=== PATIENT | male | born 1975 | race Caucasian/White ===

== ENCOUNTER 2020-12-18 11:21 | Emergency (ER) | payer SELFPAY ==
--- NOTE | 2020-12-18 11:25 | XRR_ITS ---
PROCEDURE INFORMATION: Exam: XR Left Foot Exam date and time: 12/18/2020 11:25 AM Age: 45 years old Clinical indication: Pain; Foot; Left TECHNIQUE: Imaging protocol: XR Left foot. Views: 1 or 2 views. COMPARISON: No relevant prior studies available. FINDINGS: Bones/joints: Normal. Soft tissues: Normal. XR/XR foot LT 2V [id number] IMPRESSION: No acute findings.
--- NOTE | 2020-12-18 12:11 | ED_ITS ---
HPI - Extremity Injury (Lower) General: Chief Complaint: Extremity Injury, Lower Stated Complaint: L foot pain Time Seen by Provider: 12/18/20 12:39 Source: patient Mode of arrival: wheelchair Review of Systems General: Reports: 10 or more systems reviewed and unremarkable except in HPI and below Musc: Reports: extremity pain and extremity swelling Physical Exam Const: COMMON NORMALS: no acute distress, patient oriented x3, no limitations and alert GENERAL APPEARANCE: cooperative and comfortable ORIENTATION/CONSCIOUSNESS: Yes awake, Yes oriented to person, Yes oriented to place and Yes oriented to time HENMT: COMMON NORMALS: normocephalic, atraumatic, external ears normal, EAC's normal, TM's normal bilaterally and Normal external nose present HEAD & SCALP: normal to inspection, normocephalic and atraumatic FACE & SINUS: normal facial exam, sinuses nontender and face symmetric NOSE: Normal external nose present, Normal nares present and No nasal discharge present EXTERNAL EAR: Yes external ears normal EXTERNAL AUDITORY CANAL: EAC's normal TYMPANIC MEMBRANE: TM's normal bilaterally MOUTH: Normal oral and palatal mucosa present, lip normal and tongue normal THROAT: posterior oropharynx normal, tonsils normal and uvula midline Eye: COMMON NORMALS: Equal, round and reactive pupils present, EOMs intact bilaterally and conjunctivae normal GENERAL EYE: appearance normal, both eyes and all related structures and normal light reflex EYELID: eyelids normal CONJUNCTIVA: Yes conjunctivae normal PUPIL: Yes Equal, round and reactive pupils present EOM: Yes EOM abnormal DIRECT OPHTHALMOSCOPY: Yes normal light reflex Neck/C-Spine: COMMON NORMALS: full ROM, no lymphadenopathy, supple, no meningeal signs, no JVD and Thyroid normal GENERAL: Yes normal visual inspection THYROID: Thyroid normal CERVICAL SPINE: Yes cervical ROM normal and Yes normal cervical lordosis Lymph: LYMPHATIC: no lymphadenopathy noted Chest: COMMONS NORMALS: normal inspection of the chest and normal palpation of entire chest wall Resp: COMMON NORMALS: normal respiratory effort, No retractions and clear to auscultation bilaterally AUSCULTATION: clear to auscultation bilaterally Cardio: COMMON NORMALS: no JVD, regular rate, regular rhythm, S1 normal heart sound present, S2 normal heart sound present, No gallops present (Cardio), No clicks present (Cardio), No murmurs present (Cardio), No rub (Cardio) and Peripheral pulses 2+ throughout RATE: regular rate RHYTHM: regular rhythm HEART SOUNDS: S1 normal heart sound present and S2 normal heart sound present PERIPHERAL PULSES: Peripheral pulses 2+ throughout GI: COMMON NORMALS: Normal to inspection, nondistended, normoactive bowel sounds present, Soft to palpation, non-tender and no masses PALPATION: Yes Soft to palpation : COMMON NORMALS: Yes no CVA tenderness BLADDER/KIDNEY EXAM: Yes no CVA tenderness Back/Pelvis: COMMON NORMALS: no CVA tenderness, thoracic and lumbar spine normal to inspection, no thoracic nor lumbar tenderness and thoraco-lumbar ROM normal Extremity: COMMON NORMALS: normal to inspection, full ROM, capillary refill normal, no joint enlargement, no clubbing, cyanosis or edema, no calf tenderness and no pedal edema GENERAL: Yes normal exam except as noted LEFT LOWER EXTREMITY: Yes ankle joint Left ankle: Yes inspection Neuro: COMMON NORMALS: patient oriented x3, moves all extremities, no focal motor deficits, no sensory deficits noted and gait normal SENSORIUM/ORIENTATION: Yes alert, Yes oriented to person, Yes oriented to place and Yes oriented to time MENINGEAL SIGNS: Yes no meningeal signs Psych: COMMON NORMALS: mental status grossly normal, Normal thought process present, cooperative, normal affect, speech normal and activity/motor behavior normal SPEECH: Yes normal speech THOUGHT PROCESS: Normal thought process present Skin: COMMON NORMALS: no rashes or lesions noted, no wounds and turgor normal GENERAL SKIN EXAM: no rashes or lesions noted and turgor normal Course ED course: Pt had a crushing injury while working, he had log roll over his left ankle. Xray negative fx. We are going to splint and have his utilize crutches for the next several days. RICE therapy and will add keflex due to crushing nature of wound even though no fx is present. Vital Signs: Vital signs: Vital Signs Temperature 97.6 F 12/18/20 12:39 Pulse Rate 77 12/18/20 13:53 Respiratory Rate 16 12/18/20 13:53 Blood Pressure 125/77 12/18/20 12:39 Pulse Oximetry 95 12/18/20 13:53 MDM - Extremity Injury (Lower) Imaging Data^: Other Xray: Radiologist's impression: [address] [address] XRay Report Signed Patient: Fred Orosco Unit #: [id number] : 1975 Age/Sex: 45 / M ADM Date: 12/18/20 Loc: ER Room/Bed: Attending Dr: Ordering Provider/Ordering MD: Aurora Payne NP Date of Service: 12/18/20 Procedure(s): XR foot LT 2V 56946 Accession Number(s): [id number] Report Number: [id number] PROCEDURE INFORMATION: Exam: XR Left Foot Exam date and time: 12/18/2020 11:25 AM Age: 45 years old Clinical indication: Pain; Foot; Left TECHNIQUE: Imaging protocol: XR Left foot. Views: 1 or 2 views. COMPARISON: No relevant prior studies available. FINDINGS: Bones/joints: Normal. Soft tissues: Normal. XR/XR foot LT 2V [id number] IMPRESSION: No acute findings. Dictated By: Fred Schafer Signed By: Fred Schafer Signed Date/Time: 12/18/20 1158 DD/ 1156 Discharge Plan Discharge Clinical Impression: Ankle sprain and strain Condition: Stable Prescriptions: New Keflex 750 mg capsule 750 mg PO BID 7 Days Qty: 14 RF: 0 Ultram 50 mg tablet 50 mg PO BID Qty: 10 RF: 0 Discharge Orders: Discharge ED (Routine); Ordered 12/18/20 Ordered By: Aurora Payne Discharge Diet: Usual diet Discharge Activity: Increase activity as tolerated Coding Level of Care Code ED Environmental Test Technician for Cayden Olivares
[2020-12-18 12:39] VITALS: BP 125/77; PULSE 87; RESP 16; TEMP 36.4; O2SAT 94; BMI 30.8
--- NOTE | 2020-12-18 12:52 | XRR_ITS ---
PROCEDURE INFORMATION: Exam: XR Left Ankle Exam date and time: 12/18/2020 12:52 PM Age: 45 years old Clinical indication: Injury or trauma; Other: Tree rolled onto foot; Crushing; Ankle; Left; Patient HX: Tree rolled on lt foot. PT states he has constant pain and a burning sensation all over his lt foot. TECHNIQUE: Imaging protocol: XR Left ankle. Views: 3 or more views. COMPARISON: CR XR foot LT 2V [id number] 12/18/2020 11:26 AM FINDINGS: Bones/joints: Normal. Soft tissues: Normal. XR/XR ankle LT min 3V* [id number] IMPRESSION: No significant abnormality.
[2020-12-18] MEDS: HYDROcodone-acetaminophen 5-325 mg Tablet 1 TAB PO (13:13)
[2020-12-18 13:53] VITALS: PULSE 77; RESP 16; O2SAT 95
[2020-12-18 14:31] VITALS: BP 131/72; PULSE 74; RESP 18; O2SAT 93
[2020-12-18 14:46] VITALS: BP 131/72; PULSE 74; RESP 18; TEMP 36.4; O2SAT 93
== END 2020-12-18 14:48 | disposition home or self-care (01) ==
PROVIDERS: Emergency Provider Nurse Practitioner Family
DX: S93.402A Sprain of unspecified ligament of left ankle, initial encounter (principal); W20.8XXA Other cause of strike by thrown, projected or falling object, initial encounter
CPT/HCPCS: 29515; 73610; 73620; 99283; E0114

== ENCOUNTER 2023-04-17 20:08 | Emergency (ER) | payer MEDICAID, SELFPAY ==
[2023-04-17 20:27] VITALS: BP 110/80; PULSE 107; RESP 18; TEMP 36.9; O2SAT 90
--- NOTE | 2023-04-17 20:46 | CTR_ITS ---
PROCEDURE INFORMATION: Exam: CT Abdomen And Pelvis With Contrast Exam date and time: 04/17/2023 9:03 PM Age: 48 years old Clinical indication: Abdominal pain; Localized; Left lower quadrant (llq); Patient HX: Llq pain with tarry stool. History of RT inguinal hernia. ; Additional info: Llq abdominal pain TECHNIQUE: Imaging protocol: Computed tomography of the abdomen and pelvis with contrast. Radiation optimization: All CT scans at this facility use at least one of these dose optimization techniques: automated exposure control; mA and/or kV adjustment per patient size (includes targeted exams where dose is matched to clinical indication); or iterative reconstruction. Contrast material: OMNI 350; Contrast volume: 100 ml; Contrast route: INTRAVENOUS (IV); REPORTING DATA: Count of CT and Cardiac NM exams in prior 12 months: This patient has received 0 known CTs and 0 known cardiac nuclear medicine studies in the 12 months prior to the current study. COMPARISON: No relevant prior studies available. RADIATION DOSE METRICS: Total DLP (mGy-cm): 924.18 FINDINGS: Lungs: Emphysematous changes. Left lower lobe 7.4 mm pulmonary nodule, dedicated chest CT advised for further evaluation. Liver: Hepatic steatosis. Gallbladder and bile ducts: Normal. No calcified stones. No ductal dilation. Pancreas: Normal. No ductal dilation. Spleen: Spleen enlarged to 17 cm. Adrenal glands: Normal. No mass. Kidneys and ureters: Normal. No hydronephrosis. Stomach and bowel: Prominent fluid in the small bowel may reflect an enteritis. Appendix: No evidence of appendicitis. Intraperitoneal space: Unremarkable. No free air. No significant fluid collection. Vasculature: Unremarkable. No abdominal aortic aneurysm. Lymph nodes: Unremarkable. No enlarged lymph nodes. Urinary bladder: Unremarkable as visualized. Reproductive: Prostate gland enlarged indenting the base of the urinary bladder. Bones/joints: Unremarkable. No acute fracture. Soft tissues: Small to moderate right inguinal hernia containing bowel without dilation. Small left inguinal hernia containing omentum. CT/CT abdomen pelvis w con* [id number] IMPRESSION: 1. Prominent fluid in the small bowel may reflect an enteritis. 2. Small to moderate right inguinal hernia containing bowel without dilation. 3. Small left inguinal hernia containing omentum. 4. Prostate gland enlarged indenting the base of the urinary bladder. 5. Emphysematous changes. 6. Left lower lobe 7.4 mm pulmonary nodule, dedicated chest CT advised for further evaluation. 7. Hepatic steatosis. 8. Spleen enlarged to 17 cm.
--- NOTE | 2023-04-17 20:50 | W.ED.ABDPA2 ---
HPI - Abdominal Pain General: Chief Complaint: Abdominal Pain Stated Complaint: flu like symptoms, abd pain Time Seen by Provider: 04/17/23 20:11 History of Present Illness: Patient is a 48-year-old male with a past medical history significant for tobacco dependence and a known right inguinal hernia who presents to the emergency department with left lower quadrant abdominal pain. Patient reports that for approximately 2 weeks he has had a mild productive cough. Sputum production is clear. Patient states that when he was coughing earlier today he felt a sharp pain in his left lower quadrant. Patient states that since the incident he has had increased left lower quadrant abdominal pain. He currently rates his pain as a 7 out of 10 in severity that he describes as a burning-like sensation. Pain is constant and he denies any aggravating or alleviating factors. Admits to subjective fevers but denies actually taking his temperature. Temperature in triage is 98.4 ?F. Admits to a sore throat and clear rhinorrhea. Patient states that he also has diarrhea and will intermittently have bright red blood per rectum. Is unsure if he has a history of hemorrhoids. He denies chest pain, new onset shortness of breath, palpitations, lightheadedness, dizziness, nausea, vomiting, hematemesis, hemoptysis, dysuria, hematuria, constipation, melena, or any other associated symptoms. Patient admits to smoking approximately half a pack of cigarettes a day. No other complaints at this time. Associated Symptoms: Reports diarrhea, fever(s) and hematochezia; Denies chills, coffee ground emesis, constipation, dysuria, hematuria, hematemesis, nausea and vomiting Review of Systems General: Reports: 10 or more systems reviewed and unremarkable except in HPI and below Const: Reports: fever(s); Denies: chills Eyes: Denies: change in vision or blurry vision ENMT: Reports: throat pain, nasal discharge and nasal congestion; Denies: ear or mastoid pain or ear discharge Card: Denies: chest pain or palpitations Resp: Reports: productive cough; Denies: non-productive cough or wheezing GI: Reports: abdominal pain, diarrhea and hematochezia; Denies: nausea, vomiting, hematemesis, coffee ground emesis or constipation : Denies: flank pain, difficulty urinating, dysuria or hematuria Musc: Denies: neck pain, back pain or extremity pain Skin/Breast: Denies: rash Neuro: Denies: headache(s), numbness in extremities, weakness in extremities, dizziness or vertigo PFSH ED PFSH: Social History Smoking and tobacco/nicotine status: current every day tobacco/nicotine user (2 - 21/2 packs per day) Physical Exam Const: COMMON NORMALS: no acute distress and patient oriented x3 HENMT: COMMON NORMALS: normocephalic, atraumatic, TM's normal bilaterally and moist oral mucous membranes HEAD & SCALP: normocephalic and atraumatic TYMPANIC MEMBRANE: TM's normal bilaterally OTHER: Posterior oropharynx erythematous without swelling, lesions, or exudates. No evidence of retropharyngeal abscess or peritonsillar abscess. Bilateral tympanic membranes pearly garcia without effusion or hemotympanums. Eye: COMMON NORMALS: Equal, round and reactive pupils present, EOMs intact bilaterally and conjunctivae normal CONJUNCTIVA: Yes conjunctivae normal PUPIL: Yes Equal, round and reactive pupils present Neck/C-Spine: COMMON NORMALS: full ROM, no lymphadenopathy and supple Chest: COMMONS NORMALS: normal inspection of the chest Resp: COMMON NORMALS: normal respiratory effort, No retractions, No use of accessory muscles and clear to auscultation bilaterally AUSCULTATION: clear to auscultation bilaterally Cardio: COMMON NORMALS: regular rhythm, No gallops present (Cardio), No clicks present (Cardio), No murmurs present (Cardio) and No rub (Cardio) RATE: tachycardic RHYTHM: regular rhythm GI: OTHER: Mild distention noted on examination. Left lower quadrant abdominal tenderness appreciated to palpation. No McBurney's point tenderness, Barnes sign, or peritoneal signs noted. No evidence of rebound tenderness. Normoactive bowel sounds in all 4 quadrants. Reducible right-sided inguinal hernia is noted. The area is nontender to palpation. No evidence of incarceration or strangulation. No appreciable hernias noted to the left inguinal area. : COMMON NORMALS: Yes no CVA tenderness BLADDER/KIDNEY EXAM: Yes no CVA tenderness Back/Pelvis: COMMON NORMALS: no CVA tenderness Extremity: OTHER: Moving bilateral upper and lower extremities without weakness or deficit. Neuro: COMMON NORMALS: patient oriented x3 OTHER: Sensation intact in the bilateral upper and lower extremities. Patient is alert and oriented x 4. No focal neurological deficits noted on examination. Course Vital Signs: Vital signs: Vital Signs Temperature 98.4 F 04/17/23 20:27 Pulse Rate 107 H 04/17/23 20:27 Respiratory Rate 18 04/17/23 20:27 Blood Pressure 110/80 04/17/23 20:27 Pulse Oximetry 90 04/17/23 20:27 Oxygen Delivery Me thod Room Air 04/17/23 20:27 MDM - Abdominal Pain Medical Decision Making Patient is a 48-year-old male with a past medical history significant for tobacco dependence and a known right inguinal hernia who presents to the emergency department with left lower quadrant abdominal pain. On physical examination patient is nontoxic and in no acute distress. Vital signs stable at discharge. Oxygen saturations remained above 90% on room air. Patient is afebrile. CBC showed mild leukocytosis at 15.83. CMP, lipase, lactic acid, influenza, COVID-19, and rapid strep all grossly unremarkable. CT of the abdomen pelvis with contrast showed Prominent fluid in the small bowel may reflect an enteritis. Small to moderate right inguinal hernia containing bowel without dilation. Small left inguinal hernia containing omentum. Prostate gland enlarged indenting the base of the urinary bladder. Emphysematous changes. Left lower lobe 7.4 mm pulmonary nodule, dedicated chest CT advised for her evaluation. Hepatic steatosis. Spleen enlarged to 17 cm. Chest x-ray showed right hilar to lower lobe atelectasis versus infiltrate. Emphysematous changes noted. No evidence of incarcerated or strangulated bowel. I will refer to general surgery for the patient's inguinal hernias. Given the patient's leukocytosis and possible infiltrate I will treat with doxycycline and have the patient follow-up with his primary care provider. A referral was sent to general surgery for your inguinal hernia. Number provided discharge paperwork, call tomorrow to schedule an appointment for further management/evaluation. A possible pneumonia was noted on your chest x-ray. A prescription of doxycycline was sent to your pharmacy be picked up. Take medication as prescribed. First dose given in the emergency department. A pulmonary nodule was noted on your CT. It is important that you follow-up with your primary care provider for further imaging. Call your primary care provider tomorrow with an update your symptoms and to schedule this appointment. Cold-mist humidifier night. Warm salt water gargles for sore throat. Tylenol and ibuprofen as needed for pain. Return to the emergency department in the next 12 to 24 hours for any rapid or worsening symptoms to include but not limited to worsening abdominal pain, nausea, vomiting, unable to have a bowel movement, chest pain, shortness of breath, palpitations, unable to reduce the hernia, or as needed. Patient stated understanding of all discharge instructions and was agreeable to the plan of care. I discussed patient's history, exam, and all findings with Dr. Barry in the emerge department who agreed my assessment and plan. He did not feel the patient required admission or further evaluation at this time. Differential diagnosis include but is not limited to strangulated hernia, incarcerated hernia, bowel obstruction, pancreatitis, diverticulitis, gastroenteritis, pneumonia Lab Data 04/17/23 20:45 04/17/23 20:45 Labs/Radiology: Radiology Impressions Abdomen/Pelvis CT 04/17/23 20:46 IMPRESSION: 1. Prominent fluid in the small bowel may reflect an enteritis. 2. Small to moderate right inguinal hernia containing bowel without dilation. 3. Small left inguinal hernia containing omentum. 4. Prostate gland enlarged indenting the base of the urinary bladder. 5. Emphysematous changes. 6. Left lower lobe 7.4 mm pulmonary nodule, dedicated chest CT advised for further evaluation. 7. Hepatic steatosis. 8. Spleen enlarged to 17 cm. Chest X-Ray 04/17/23 21:57 IMPRESSION: 1. Right hilar to lower lobe atelectasis versus infiltrate. 2. Emphysematous changes. Laboratory Results WBC 15.83 10^3/uL (3.29-11.43) H 04/17/23 20:45 RBC 5.71 10^6/uL (3.85-5.65) H 04/17/23 20:45 Hgb 17.10 g/dL (11.27-16.99) H 04/17/23 20:45 Hct 49.2 % (37-53) 04/17/23 20:45 MCV 86.2 fl (82-101) 04/17/23 20:45 MCH 29.9 pg (27-33) 04/17/23 20:45 MCHC 34.8 g/dL (30-55) 04/17/23 20:45 RDW 12.4 % (12.1-15.1) 04/17/23 20:45 Plt Count 341 10^3/cmm (157-399) 04/17/23 20:45 MPV 8.8 fL (7.4-10.4) 04/17/23 20:45 Neut % (Auto) 69.2 % 04/17/23 20:45 Lymph % (Auto) 19.5 % 04/17/23 20:45 [place] % (Auto) 7.8 % 04/17/23 20:45 Eos % (Auto) 2.3 % 04/17/23 20:45 Baso % (Auto) 0.5 % 04/17/23 20:45 Neut # (Auto) 10.96 10^3/uL (1.8-7.7) H 04/17/23 20:45 Lymph # (Auto) 3.1 10^3/uL (0.8-4.8) 04/17/23 20:45 [place] # (Auto) 1.2 10^3/uL (0.2-0.9) H 04/17/23 20:45 Eos # (Auto) 0.4 10^3/uL (0.0-0.8) 04/17/23 20:45 Baso # (Auto) 0.1 10^3/uL (0.0-0.1) 04/17/23 20:45 Nucleated RBC % (auto) 0 % 04/17/23 20:45 Nucleated RBCs # 0.0 /100WBC 04/17/23 20:45 Sodium 137 mmol/L (136-145) 04/17/23 20:45 Potassium 4.2 mmol/L (3.5-5.1) 04/17/23 20:45 Chloride 101 mmol/L (98-107) 04/17/23 20:45 Carbon Dioxide 25 mmol/L (22-29) 04/17/23 20:45 Anion Gap 15.2 (5-19) 04/17/23 20:45 BUN 12 mg/dL (6-20) 04/17/23 20:45 Creatinine 0.8 mg/dL (0.7-1.2) 04/17/23 20:45 GFR Calculation 103.2 mL/min (90-130) 04/17/23 20:45 Glucose 115 mg/dL (65-115) 04/17/23 20:45 Calculated Osmolality 285 mOsm/kg (285-295) 04/17/23 20:45 Lactic Acid 1.6 mmol/L (0.5-2.2) 04/17/23 20:45 Calcium 9.3 mg/dL (8.5-10.5) 04/17/23 20:45 Total Bilirubin 0.3 mg/dL (0.15-1.2) 04/17/23 20:45 AST 16 U/L (0-40) 04/17/23 20:45 ALT 18 U/L (0-41) 04/17/23 20:45 Alkaline Phosphatase 118 U/L (40-130) 04/17/23 20:45 Total Protein 7.5 g/dL (6.6-8.7) 04/17/23 20:45 Albumin 4.4 g/dL (3.5-5.2) 04/17/23 20:45 Globulin 3.1 g/dL (1.3-4.6) 04/17/23 20:45 Lipase 34 U/L (13-60) 04/17/23 20:45 Influenza Type A Ag negative (Negative) 04/17/23 20:57 Influenza Type B Ag negative (Negative) 04/17/23 20:57 SARS-CoV-2 Ag (Rapid) negative (Negative) 04/17/23 20:57 Group A Strep Rapid Negative (Negative) 04/17/23 20:57 All radiology interpretation(s) finalized by discharge Discharge Plan Discharge Patient Disposition: Home Clinical Impression: Inguinal hernia, Incidental pulmonary nodule, Cough Condition: Stable Prescriptions: New doxycycline hyclate 100 mg capsule 100 mg PO BID 7 Days Qty: 14 0RF No Action guaifenesin [Mucinex] 600 mg tablet extended release 12hr 600 mg PO Q12H PRN dextromethorphan HBr 15 mg/5 mL syrup 15 mg PO Q8H azithromycin [Zithromax Z-Claudio] 250 mg tablet See Rx Instructions PO .COMPLEX Qty: 6 0RF Rx Instructions: For 250 mg dose pack: take 500 mg today (day 1), then 250 mg for 4 days (days 2-5) PO Discharge Orders: Discharge ED (Routine); Ordered 04/17/23 Ordered By: Segundo Tam Referrals: Shayne Martinez DO [Physician] - Patient Instructions: Inguinal Hernia (ED), Pulmonary Nodules (ED), Pneumonia (ED) Activity Restrictions/Additional Instructions: See handouts over generalize instructions. A referral was sent to general surgery for your inguinal hernia. Number provided discharge paperwork, call tomorrow to schedule an appointment for further management/evaluation. A possible pneumonia was noted on your chest x-ray. A prescription of doxycycline was sent to your pharmacy be picked up. Take medication as prescribed. First dose given in the emergency department. A pulmonary nodule was noted on your CT. It is important that you follow-up with your primary care provider for further imaging. Call your primary care provider tomorrow with an update your symptoms and to schedule this appointment. Cold-mist humidifier night. Warm salt water gargles for sore throat. Tylenol and ibuprofen as needed for pain. Return to the emergency department in the next 12 to 24 hours for any rapid or worsening symptoms to include but not limited to worsening abdominal pain, nausea, vomiting, unable to have a bowel movement, chest pain, shortness of breath, palpitations, unable to reduce the hernia, or as needed. Coding Level of Care Code ED Judicial Administrative Assistant for Cayden Olivares
[2023-04-17 20:55] LABS: Basophils # 0.1 10^3/uL (0.0-0.1); Basophils % 0.5 %; Eosinophils # 0.4 10^3/uL (0.0-0.8); Eosinophils % 2.3 %; Hematocrit 49.2 % (37-53); Lymphocytes # 3.1 10^3/uL (0.8-4.8); Lymphocytes % 19.5 %; Mean Corpuscular HGB Conc 34.8 g/dL (30-55); Mean Corpuscular Hemoglobin 29.9 pg (27-33); Mean Corpuscular Volume 86.2 fl (82-101); Mean Platelet Volume 8.8 fL (7.4-10.4); Monocytes # 1.2 10^3/uL (0.2-0.9); Monocytes % 7.8 %; Neutrophils # 10.96 10^3/uL (1.8-7.7); Neutrophils % 69.2 %; Nucleated Red Blood Cells % 0 %; Platelet Count 341 10^3/cmm (157-399); Red Blood Count 5.71 10^6/uL (3.85-5.65); Red Cell Distribution Width 12.4 % (12.1-15.1); White Blood Count 15.83 10^3/uL (3.29-11.43)
[2023-04-17] MEDS: sodium chloride 0.9% 1,000 ML 999 ML IV (20:56)
[2023-04-17] MEDS: iohexol 350 mg/mL 500 mL Btl (per mL) IV (21:05)
[2023-04-17 21:09] LABS: Lactic Sepsis W/Reflex 1.6 mmol/L (0.5-2.2)
[2023-04-17 21:13] LABS: Rapid Strep A Test Negative (Negative)
[2023-04-17 21:19] LABS: Alanine Aminotransferase 18 U/L (0-41); Albumin Level 4.4 g/dL (3.5-5.2); Alkaline Phosphatase 118 U/L (40-130); Aspartate Amino Transferase 16 U/L (0-40); Blood Urea Nitrogen 12 mg/dL (6-20); Calcium 9.3 mg/dL (8.5-10.5); Carbon Dioxide 25 mmol/L (22-29); Chloride 101 mmol/L (98-107); Globulin 3.1 g/dL (1.3-4.6); Glomerular Filtration Rate 103.2 mL/min (90-130); Glucose 115 mg/dL (65-115); Lipase 34 U/L (13-60); Osmolality Calculated 285 mOsm/kg (285-295); Sodium 137 mmol/L (136-145); Total Bilirubin 0.3 mg/dL (0.15-1.2); Total Protein 7.5 g/dL (6.6-8.7)
[2023-04-17 21:24] LABS: SARS Covid-2 Antigen negative (Negative)
[2023-04-17 21:31] LABS: Anion Gap 15.2 (5-19); Potassium 4.2 mmol/L (3.5-5.1)
[2023-04-17 21:33] LABS: Influenza A by IFA negative (Negative); Influenza B by IFA negative (Negative)
--- NOTE | 2023-04-17 21:57 | XRR_ITS ---
PROCEDURE INFORMATION: Exam: XR Chest Exam date and time: 04/17/2023 10:10 PM Age: 48 years old Clinical indication: Cough TECHNIQUE: Imaging protocol: Radiologic exam of the chest. Views: 2 views. COMPARISON: CT abdomen pelvis w con* [id number] 04/17/2023 9:03 PM FINDINGS: Lungs: Right hilar to lower lobe atelectasis versus infiltrate. Emphysematous changes. Pleural spaces: Unremarkable. No pleural effusion. No pneumothorax. Heart/Mediastinum: Unremarkable. No cardiomegaly. Bones/joints: Unremarkable. XR/XR chest 2V* [id number] IMPRESSION: 1. Right hilar to lower lobe atelectasis versus infiltrate. 2. Emphysematous changes.
[2023-04-17] MEDS: doxycycline 100 mg Tablet PO (22:45)
[2023-04-17 23:01] VITALS: BP 122/87; RESP 16
--- NOTE | 2023-04-20 08:05 | DCPLANNER ---
Message was sent to general surgery on 04/20/23 at 0806. Clinic to contact patient.
== END 2023-04-17 23:07 | disposition home or self-care (01) ==
PROVIDERS: Emergency Provider Physician Assistant
DX: K40.20 Bilateral inguinal hernia, without obstruction or gangrene, not specified as recurrent (principal); R05.9 Cough, unspecified; R91.1 Solitary pulmonary nodule; F17.290 Nicotine dependence, other tobacco product, uncomplicated; N40.0 Benign prostatic hyperplasia without lower urinary tract symptoms; D72.829 Elevated white blood cell count, unspecified
CPT/HCPCS: 71046; 74177; 80053; 83605; 83690; 85025; 87081; 87426; 87804; 87880; 96360; 96361; 99285; J7030; Q9967

== ENCOUNTER 2023-04-22 06:40 | Inpatient (IN) | payer MEDICAID, SELFPAY ==
[2023-04-22] VITALS (14 sets, daily range): BP systolic 101–151; BP diastolic 60–100; PULSE 80–106; RESP 16–20; TEMP 36.3–37; O2SAT 87–93; BMI 29.3
--- NOTE | 2023-04-22 06:47 | XRR_ITS ---
PROCEDURE INFORMATION: Exam: XR Chest Exam date and time: 04/22/2023 6:55 AM Age: 48 years old Clinical indication: Pain; Chest pressure; Additional info: Chest pain TECHNIQUE: Imaging protocol: Radiologic exam of the chest. Views: 1 view. COMPARISON: CR (CHEST, ) 04/17/2023 10:10 PM FINDINGS: Lungs: Mild atelectasis or infiltrate is stable in the right lung base medially. Pleural spaces: Unremarkable. No pleural effusion. No pneumothorax. Heart/Mediastinum: Unremarkable. No cardiomegaly. Bones/joints: Unremarkable. XR/XR chest 1V portable [id number] IMPRESSION: No significant change.
--- NOTE | 2023-04-22 06:47 | ECG_ITS ---
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 Measurements Intervals [place] Rate: 99 P: 55 [place]: 150 QRS: 79 QRSD: 97 T: 70 QT: 304 QTc: 391 Interpretive Statements SINUS RHYTHM POSSIBLE RIGHT VENTRICULAR CONDUCTION DELAY [RSR (QR) IN V1/V2] No previous ECG available for comparison Electronically Signed On 04-22-2023 21:45:56 WEATHER ANALYST by Mayco Hunter M.D. [email or web address] hospitalDeolanuniversity hospitals elyria medical centerRaydiance/store/NU/[id number] f
--- NOTE | 2023-04-22 06:49 | W.ED.CHESTPA ---
HPI - Chest Pain General: Chief Complaint: Chest Pain Stated Complaint: chest pain Time Seen by Provider: 04/22/23 06:46 Source: patient Mode of arrival: ambulatory History of Present Illness: 48-year-old male presents emergency room complaining of chest pain. He states he has a history of coronary disease that when he was 41 when he had an episode of chest pain he had an angiogram but there is no intervention done of bypass did not have any stents tells me he was told if he got any worse he would have to have stents. This appears to have been done at our facility In February 2006 however I cannot view the notes when I try to open them in the old EMR it will not allow me to see the report. Patient was seen 4 days ago in our emergency room and treated for bronchitis with doxycycline which she states he has been taking. Since then he is having increasing shortness of breath and on arrival here is satting 87% requiring oxygen. Patient denies any swelling in his leg he does report chest pain at this time he denies any history of DVT or PE. He is not on any anticoagulation does not take aspirin. He is diabetic and previously was on metformin but stopped taking it when he ran out of his insurance. He also is a smoker. MD complaint: chest pain Onset (ago): day(s) Timing of current episode: constant Onset: during rest Pain location: substernal Severity: moderate Relieving factors: nothing Exacerbating factors: nothing Associated symptoms: Reports dyspnea and nausea; Deny abdominal pain, diaphoresis, fever(s), leg edema, palpitations, sense of impending doom, syncope, vomiting or other Treatment prior to arrival: none Review of Systems Const: Denies: fever(s), chills or diaphoresis Card: Reports: chest pain; Denies: palpitations or syncope Resp: Reports: dyspnea, productive cough and wheezing GI: Reports: nausea; Denies: abdominal pain or vomiting : Denies: dysuria, urinary frequency or urinary urgency Musc: Denies: neck pain or back pain Skin/Breast: Denies: rash PFSH ED PFSH: Social History Smoking and tobacco/nicotine status: current every day tobacco/nicotine user (2 - 21/2 packs per day) Physical Exam Const: COMMON NORMALS: no acute distress GENERAL APPEARANCE: cooperative and comfortable ORIENTATION/CONSCIOUSNESS: Yes awake, Yes oriented to person, Yes oriented to place and Yes oriented to time HENMT: COMMON NORMALS: normocephalic, atraumatic and hearing grossly normal bilaterally HEAD & SCALP: normocephalic and atraumatic Resp: COMMON NORMALS: normal respiratory effort, No retractions, No use of accessory muscles and clear to auscultation bilaterally AUSCULTATION: clear to auscultation bilaterally Cardio: COMMON NORMALS: regular rate, regular rhythm and No murmurs present (Cardio) RATE: regular rate RHYTHM: regular rhythm GI: COMMON NORMALS: Soft to palpation and No hepatosplenomegaly present AUSCULTATION: Yes normoactive bowel sounds PALPATION: Yes Soft to palpation, No Tenderness to palpation present (GI), No Guarding due to palpation present (GI) and Yes No hepatosplenomegaly present Extremity: COMMON NORMALS: normal to inspection, capillary refill normal, no clubbing, cyanosis or edema, no calf tenderness and no pedal edema Neuro: SENSORIUM/ORIENTATION: Yes oriented to person, Yes oriented to place and Yes oriented to time Skin: COMMON NORMALS: no rashes or lesions noted GENERAL SKIN EXAM: no rashes or lesions noted Course Vital Signs: Vital signs: Vital Signs Temperature 97.4 F L 04/22/23 07:37 Pulse Rate 90 04/22/23 08:31 Respiratory Rate 16 04/22/23 08:28 Blood Pressure 151/100 04/22/23 06:54 Pulse Oximetry 93 04/22/23 08:28 Oxygen Delivery Me thod Nasal Cannula 04/22/23 08:28 Oxygen Flow Rate 2 04/22/23 08:28 [facility] - Chest Pain Medical Decision Making Staff was able to access the old records from 2005 when patient was hospitalized with episodic chest pain. Patient did not have an DE at that time and his angiogram was essentially normal. There was less than 10% stenosis of his LAD on no evidence of myocardial infarction at the time of the angiogram, see Dr. Tao's heart catheterization notes as well as discharge summary. He was discharged home with risk factor modification. At this time patient has exacerbation of COPD with a right lower lobe pneumonia. He is requiring oxygen maintain sats in the low 90s. His O2 sat on room air was 87%. He has been cultured and started on antibiotics his lactic acid is 2.9 but his blood pressure is stable. Discussed with hospitalist orders written Medical Records I reviewed the patient's medical records. Lab Data I reviewed the patient's lab results. 04/22/23 06:53 04/22/23 06:53 Radiology Impressions Chest X-Ray 04/22/23 06:47 IMPRESSION: No significant change. Laboratory Results WBC 12.48 10^3/uL (3.29-11.43) H 04/22/23 06:53 RBC 5.63 10^6/uL (3.85-5.65) 04/22/23 06:53 Hgb 16.90 g/dL (11.27-16.99) 04/22/23 06:53 Hct 48.8 % (37-53) 04/22/23 06:53 MCV 86.7 fl (82-101) 04/22/23 06:53 MCH 30.0 pg (27-33) 04/22/23 06:53 MCHC 34.6 g/dL (30-55) 04/22/23 06:53 RDW 12.4 % (12.1-15.1) 04/22/23 06:53 Plt Count 311 10^3/cmm (157-399) 04/22/23 06:53 MPV 8.6 fL (7.4-10.4) 04/22/23 06:53 Neut % (Auto) 70.5 % 04/22/23 06:53 Lymph % (Auto) 17.9 % 04/22/23 06:53 [place] % (Auto) 7.5 % 04/22/23 06:53 Eos % (Auto) 2.5 % 04/22/23 06:53 Baso % (Auto) 0.6 % 04/22/23 06:53 Neut # (Auto) 8.80 10^3/uL (1.8-7.7) H 04/22/23 06:53 Lymph # (Auto) 2.2 10^3/uL (0.8-4.8) 04/22/23 06:53 [place] # (Auto) 0.9 10^3/uL (0.2-0.9) 04/22/23 06:53 Eos # (Auto) 0.3 10^3/uL (0.0-0.8) 04/22/23 06:53 Baso # (Auto) 0.1 10^3/uL (0.0-0.1) 04/22/23 06:53 Nucleated RBC % (auto) 0 % 04/22/23 06:53 Nucleated RBCs # 0.0 /100WBC 04/22/23 06:53 PT 12.40 SECONDS (12.1-14.9) 04/22/23 06:53 INR 0.90 (0.8-1.2) 04/22/23 06:53 APTT 32.1 SECONDS (23.9-36.7) 04/22/23 06:53 Specimen Type Arterial 04/22/23 07:06 Sample Site Radial, left 04/22/23 07:06 ABG pH 7.38 (7.35-7.45) 04/22/23 07:06 ABG pCO2 40.6 mmHg (35-45) 04/22/23 07:06 ABG pO2 62.7 mmHg (80.0-100.0) L 04/22/23 07:06 ABG PO2/FiO2 Ratio 0 04/22/23 07:06 ABG HCO3 24.1 mmol/L (22-26) 04/22/23 07:06 ABG O2 Saturation 93.5 04/22/23 07:06 ABG Base Excess -0.9 mmol/L (-2.0-2.0) 04/22/23 07:06 Ryan Test Pos 04/22/23 07:06 A-a O2 Gradient 9.9 mmHg (5-10) 04/22/23 07:06 Hematocrit 52.8 % (42-52) H 04/22/23 07:06 Hgb O2 Saturation 88.3 % (95-100) L 04/22/23 07:06 Carboxyhemoglobin 5.2 %THgb (0.4-20.1) 04/22/23 07:06 Methemoglobin 0.4 % (0.4-1.5) 04/22/23 07:06 Total Hemoglobin 17.2 g/dL (14-18) 04/22/23 07:06 Sodium 139.0 mmol/L (131-143) 04/22/23 07:06 Potassium 4.4 mmol/L (3.5-5.0) 04/22/23 07:06 Glucose 153.0 mg/dL (70-115) H 04/22/23 07:06 Ionized Calcium 1.2 mmol/L (1.1-1.4) 04/22/23 07:06 O2 Delivery Device Nc 04/22/23 07:06 O2 Liters/Min 1.5 % 04/22/23 07:06 FiO2 26.0 % 04/22/23 07:06 Food Safety Director ID Alfredoro 04/22/23 07:06 Sodium 137 mmol/L (136-145) 04/22/23 06:53 Potassium 4.5 mmol/L (3.5-5.1) 04/22/23 06:53 Chloride 101 mmol/L (98-107) 04/22/23 06:53 Carbon Dioxide 24 mmol/L (22-29) 04/22/23 06:53 Anion Gap 16.5 (5-19) 04/22/23 06:53 BUN 14 mg/dL (6-20) 04/22/23 06:53 Creatinine 0.9 mg/dL (0.7-1.2) 04/22/23 06:53 GFR Calculation 90.1 mL/min (90-130) 04/22/23 06:53 Glucose 160 mg/dL (65-115) H 04/22/23 06:53 Calculated Osmolality 288 mOsm/kg (285-295) 04/22/23 06:53 Lactic Acid 2.6 mmol/L (0.5-2.2) H 04/22/23 06:53 Calcium 9.5 mg/dL (8.5-10.5) 04/22/23 06:53 Total Bilirubin 0.3 mg/dL (0.15-1.2) 04/22/23 06:53 AST 13 U/L (0-40) 04/22/23 06:53 ALT 17 U/L (0-41) 04/22/23 06:53 Alkaline Phosphatase 112 U/L (40-130) 04/22/23 06:53 Troponin T Baseline 11 ng/L (0-15) 04/22/23 06:53 NT-Pro-B Natriuret Pep < 36 pg/mL (0-125) 04/22/23 06:53 Total Protein 7.1 g/dL (6.6-8.7) 04/22/23 06:53 Albumin 4.2 g/dL (3.5-5.2) 04/22/23 06:53 Globulin 2.9 g/dL (1.3-4.6) 04/22/23 06:53 All radiology interpretation(s) finalized by discharge Discharge Plan Discharge Patient Disposition: Admitted As Inpatient Clinical Impression: Right lower lobe pneumonia, Acute exacerbation of chronic obstructive pulmonary disease Condition: Stable Coding Level of Care Code ED Director Software Quality Assurance for Cayden Olivares
[2023-04-22] MEDS: aspirin 81 mg Chew Tablet 324 MG PO (06:53)
[2023-04-22] MEDS: nitroglycerin 1 gm/inch oint Pkt 1 INCH TOPICAL (06:54)
[2023-04-22 07:01] LABS: Basophils # 0.1 10^3/uL (0.0-0.1); Basophils % 0.6 %; Eosinophils # 0.3 10^3/uL (0.0-0.8); Eosinophils % 2.5 %; Hematocrit 48.8 % (37-53); Lymphocytes # 2.2 10^3/uL (0.8-4.8); Lymphocytes % 17.9 %; Mean Corpuscular HGB Conc 34.6 g/dL (30-55); Mean Corpuscular Volume 86.7 fl (82-101); Mean Platelet Volume 8.6 fL (7.4-10.4); Monocytes # 0.9 10^3/uL (0.2-0.9); Monocytes % 7.5 %; Neutrophils % 70.5 %; Nucleated Red Blood Cells % 0 %; Platelet Count 311 10^3/cmm (157-399); Red Blood Count 5.63 10^6/uL (3.85-5.65); Red Cell Distribution Width 12.4 % (12.1-15.1); White Blood Count 12.48 10^3/uL (3.29-11.43)
[2023-04-22 07:16] LABS: Partial Thromboplastin Time 32.1 SECONDS (23.9-36.7)
[2023-04-22 07:19] LABS: ABG PCO2 40.6 mmHg (35-45); ABG PH Result 7.38 (7.35-7.45); Arterial Blood Gas Hematocrit 52.8 % (42-52); Base Excess ABG -0.9 mmol/L (-2.0-2.0); Blood Gas Allen Test Pos; Blood Gas Sample Type Arterial; Carboxyhemoglobin 5.2 %THgb (0.4-20.1); HCO3 ABG 24.1 mmol/L (22-26); HGB O2 Sat 88.3 % (95-100); Ionized Calcium Level - ABG 1.2 mmol/L (1.1-1.4); Methemoglobin 0.4 % (0.4-1.5); Oxygen Saturation ABG 93.5; PO2 ABG 62.7 mmHg (80.0-100.0); Potassium Level - ABG 4.4 mmol/L (3.5-5.0); Total Hemoglobin 17.2 g/dL (14-18)
[2023-04-22 07:20] LABS: Alveolar-Arterial Oxygen Gradi 9.9 mmHg (5-10); Blood Gas LPM 1.5 %; Blood Gas Operator Identificat MONRO; Blood Gas Sample Site Radial, left; Oxygen Device NC; PO2 FiO2 Ratio Arterial Blood 0
[2023-04-22 07:23] LABS: Lactic Sepsis W/Reflex 2.6 mmol/L (0.5-2.2)
[2023-04-22 07:24] LABS: Troponin(5th) Baseline 11 ng/L (0-15)
[2023-04-22 07:34] LABS: Alanine Aminotransferase 17 U/L (0-41); Albumin Level 4.2 g/dL (3.5-5.2); Alkaline Phosphatase 112 U/L (40-130); Anion Gap 16.5 (5-19); Aspartate Amino Transferase 13 U/L (0-40); Blood Urea Nitrogen 14 mg/dL (6-20); Calcium 9.5 mg/dL (8.5-10.5); Carbon Dioxide 24 mmol/L (22-29); Chloride 101 mmol/L (98-107); Globulin 2.9 g/dL (1.3-4.6); Glomerular Filtration Rate 90.1 mL/min (90-130); Glucose 160 mg/dL (65-115); NT Pro B Type Natriuretic Pept < 36 pg/mL (0-125); Osmolality Calculated 288 mOsm/kg (285-295); Potassium 4.5 mmol/L (3.5-5.1); Sodium 137 mmol/L (136-145); Total Bilirubin 0.3 mg/dL (0.15-1.2); Total Protein 7.1 g/dL (6.6-8.7)
--- NOTE | 2023-04-22 07:39 | PC.PHAR ---
pt states he takes care of his own medications-pt states he is suppose to be taking aspirin 81mg daily metformin unsure of mg and blood pressure meds unsure of the names-pt states had a heart attack at 31 and not taken since then pt states he lost his insurance and couldnt afford them -pt states he is only taking the medications entered
--- NOTE | 2023-04-22 07:40 | PC.NURSE ---
NITRO REMOVED FROM PATIENT CHEST PER RICHARD 0740.
[2023-04-22] MEDS: levofloxacin-dextrose 5 % 750 MG/150 ML PREMIX 100 MG IV (07:59)
[2023-04-22] MEDS: ipratropium-albuterol 3 mL Neb INHALATION ×3 (08:26→20:46)
[2023-04-22 08:44] LABS: Reflex Lactate Order REFLEX LACTIC ORDERD
--- NOTE | 2023-04-22 08:47 | ECG_ITS ---
[facility] Test Date: 2023-04-22 Pat Name: Fred Orosco Department: Room: Gender: Male Phone Engineer: : 1975 Requested By: Deangelo Maldonado Order Number: [id number] Simon MD: Mayco Hunter M.D. Measurements Intervals [place] Rate: 87 P: 55 NE: 156 QRS: 75 QRSD: 93 T: 64 QT: 316 QTc: 382 Interpretive Statements SINUS RHYTHM POSSIBLE RIGHT VENTRICULAR CONDUCTION DELAY [RSR (QR) IN V1/V2] EARLY REPOLARIZATION [ST ELEVATION WITH NORMALLY INFLECTED T-WAVE] Compared to ECG 04/22/2023 06:45:58 Early repolarization now present Electronically Signed On 04-22-2023 21:50:57 PATIENT CONSUMER MARKETER by Mayco Hunter M.D. [email or web address] regional medical [facility].Coinplug/store/OM/[id number]
[2023-04-22 09:14] LABS: Troponin 5 2HR 9.79 ng/L (0-15)
[2023-04-22 09:19] LABS: Troponin 5 2HR Delta -1.21 ABS# (0-10)
[2023-04-22] MEDS: dexamethasone 10 mg/mL INJ IM (09:31)
[2023-04-22 10:02] LABS: Influenza A by IFA negative (Negative); Influenza B by IFA negative (Negative)
[2023-04-22 10:14] LABS: Lactic Acid level (Lactate) 1.4 mmol/L (0.5-2.2)
--- NOTE | 2023-04-22 10:23 | CT_ITS ---
WS: [id number] CTA OF THE CHEST WITH PULMONARY EMBOLISM PROTOCOL TECHNIQUE: High-resolution contrast enhanced CTA of the chest with coronal and sagittal reformatted i mages with pulmonary embolism protocol. MIP images are also reviewed. CLINICAL INFORMATION: hemoptysis COMPARISON: None. DLP: 500.[address] scans at [facility] use at least one of these dose optimization techniques: automated e xposure control; mA and/or kV adjustment per patient size (includes targeted exams where dose is matc hed to clinical indication); or iterative reconstruction. FINDINGS: Proximal main pulmonary arteries are normal. Normal segmental and subsegmental pulmonary arteries. No evidence pulmonary embolus. Normal caliber thoracic aorta. Normal caliber descending thoracic aorta. Celiac and SMA are patent in the upper abdomen. Small esophageal hiatal hernia. Splenic granulomas. Advanced chronic emphysematous changes. Bibasilar atelectasis. No focal pneumonia or pleural fluid. A few calcified granulomas. A few small noncalcified nodules in the RIGHT upper lobe. Small subpleural nodule RIGHT upper lobe measuring 6 mm. Noncalcified nodule LEFT upper lobe measuring 6 mm.Prominent RIGHT hilar lymph nodes measuring up to 1.2 cm. No anterior mediastinal lymphadenopathy. IMPRESSION: 1. Proximal main pulmonary arteries are normal. No evidence of pulmonary embolus. 2. Advanced chronic emphysematous changes. No focal pneumonia or pleural fluid. Bibasilar atelectasi s. 3. Prominent RIGHT hilar lymph nodes measuring up to 1.2 cm. These are nonspecific but may be reacti ve. Recommend 3-month follow-up chest CT. 4. Scattered subcentimeter pulmonary nodules described above. Recommend 12-month chest CT follow-up.
[2023-04-22] MEDS: iohexol 350 mg/mL 500 mL Btl (per mL) IV (10:40)
--- NOTE | 2023-04-22 10:46 | P.HP_ITS ---
Providers/Chief Complaint 2 Admitting Physician: Alireza Salas MD, hospitalist Chief Complaint: chest pain History of Present Illness Fred Orosco is a 48 year old male who presents to the hospital with complaints of chest pain, cough, and hypoxia. He reports he has been coughing some, for several weeks but it worsened prior to his ER visit on April 17. At that time he had been coughing up sputum, colored to clear. He had felt like he might have fevers at times, but did not taken his temperature. He reported no vomiting, other than feeling he might after a coughing episode. He had no diarrhea, but reports occasional blood in stool with a hard bowel movement. He has been short of breath, and this seemed to progress after his emergency department visit on April 17. He did receive a prescription of doxycycline at that time which he was taking, and instructions to stop smoking. He thought he might be getting a little better as he was clearing more sputum, but had chest discomfort today as well as hypoxia. He has a pulse ox at home and recorded his saturation being around the mid 80s. He had been coughing up blood 1 or 2 times, mixed with a small amount of sputum. His chest discomfort lasted less than 10 minutes, was substernal, and felt heavy. He believes it may have recurred 1 time but cannot be specific. He did not previously have any exertional chest discomfort. He was screened for concerns of myocardial infarction in the past, 2005 with a left heart catheterization that showed perhaps a 10% tubular distal LAD stenosis and all other vessels were clear. He currently is chest discomfort free. He continues to smoke. His previous ER visit he was diagnosed with a right inguinal hernia without incarceration. He was also told he had a pulmonary nodule on his CT abdomen and pelvis. Review of Systems 2 General: Reports: 10 or more systems reviewed and unremarkable except in HPI and below Const: Reports: fever(s) and diaphoresis Card: Reports: chest pain Resp: Reports: dyspnea, productive cough and hemoptysis GI: Denies: abdominal pain, nausea or vomiting Medications/Allergies Home Medications Medication Instructions Recorded Confirmed Last Taken Type guaifenesin 600 mg tablet, 600 mg PO Q12H PRN Congestion 12/10/21 04/22/23 04/18/23 History extended release 12 hr (Mucinex) doxycycline hyclate 100 mg capsule 100 mg PO BID 7 days #14 caps 04/17/23 04/22/23 04/22/23 05:30 Rx bismuth subsalicylate 262 mg 524 mg PO .ONE TIME DOSE 04/22/23 04/22/23 04/21/23 History tablet (Pepto-Bismol) dextromethorphan-guaifenesin 10 10 ml PO Q4H PRN Cough 04/22/23 04/22/23 04/21/23 History mg-100 mg/5 mL oral syrup ibuprofen 200 mg tablet 400 mg PO Q6H PRN Pain 04/22/23 04/22/23 04/21/23 History Allergies Allergy/AdvReac Type Severity Reaction Status Date / Time Penicillins Allergy Mild ALGY-Fever Verified 04/22/23 07:39 PFSH Acute 2 PFSH: Medical History (Updated 04/22/23 @ 10:56 by Alireza Salas MD) Tobacco dependency Family History (Updated 04/22/23 @ 10:51 by Alireza Salas MD) Other Cancer Social History (Updated 04/22/23 @ 10:51 by Alireza Salas MD) Smoking and tobacco/nicotine status: current every day tobacco/nicotine user (2 - 21/2 packs per day) Alcohol intake: former Vitals/I&O/Wt Last Vital Signs Temp 97.4 F L 04/22/23 07:37 Pulse 88 04/22/23 10:00 Resp 16 04/22/23 10:00 BP 101/65 04/22/23 10:00 Pulse Ox 92 04/22/23 10:00 O2 Del Method Room Air 04/22/23 10:00 O2 Flow Rate 2 04/22/23 08:28 Weight last 48 hrs Weight 106.594 kg Physical Exam 2 Narrative: General exam demonstrates a conversant white male, on oxygen by nasal cannula, with occasional cough. HEENT: Atraumatic and normocephalic. Oropharynx is clear. Poor dentition is noted. Neck is supple no lymphadenopathy thyromegaly Cardiovascular regular rate and rhythm, no murmur. Heart sounds distant Lungs diminished breath sounds. Occasional wheeze. A few coarse breath sounds at the bases. Abdomen is soft nontender with positive bowel sounds. No obvious organomegaly exams deferred, including hernia exam at this visit. Extremities no cyanosis, edema, cap refill brisk. Skin no rash Neuro no obvious focal deficits. Data 04/22/23 06:53 04/22/23 06:53 Other Labs: EKG, reviewed by me, demonstrates sinus rhythm, normal axis. No acute changes. Chest x-ray, reviewed by me demonstrates right lower lobe infiltrate Previous abdomen and pelvis CT also reviewed PT and INR normal Blood cultures were drawn ABG demonstrated pH 7.38, pCO2 40, pO2 62 on 1.5 L LFTs are normal Troponin 11 with repeat of 9.79 BNP normal at less than 36 I have ordered a TSH Influenza negative, coronavirus pending Micro: Microbiology 04/22/23 07:11 Blood Culture - Preliminary Blood SPECIMEN COLLECTED 04/22/23 07:11 Blood Culture - Preliminary Blood SPECIMEN COLLECTED A&P Assessment and plan (1) Right lower lobe pneumonia: Patient presents with right lower lobe pneumonia He was on doxycycline as an outpatient Placed on Rocephin and azithromycin Sputum culture COVID testing Wean oxygen as tolerated (2) Hemoptysis: Patient reports hemoptysis Recent CT abdomen pelvis demonstrated a pulmonary nodule CTA of chest will be obtained for further evaluation of his lungs (3) Acute exacerbation of chronic obstructive pulmonary disease: Patient with acute exacerbation of COPD. COPD is likely secondary to prior history of wheezing before illness, long history of smoking Dexamethasone was given in the emergency department Continue Solu-Medrol 60 mg IV every 12 hours DuoNeb every 4 hours Budesonide twice daily Counseled to stop smoking From my understanding pulmonary follow-up had been arranged from his previous ER visit (4) Inguinal hernia: Patient with history of right inguinal hernia Will need follow-up with surgery. No evidence of incarceration currently. (5) Incidental pulmonary nodule: See above (6) Hyperglycemia: Check hemoglobin A1c (7) Tobacco dependency: Counseled to stop smoking Consider nicotine patch should he need this Plan Chest discomfort. This is likely related to his coughing, pneumonia, COPD. However, will continually reevaluate Full code Lovenox for DVT prophylaxis Attestations 2 Medical Necessity Statement*: Will need greater than 2 midnight stay for eval and treatment of pneumonia. Diagnoses Right lower lobe pneumonia J18.9 Hemoptysis R04.2 Acute exacerbation of chronic obstructive pulmonary disease J44.1 Inguinal hernia K40.90 Incidental pulmonary nodule R91.1 Hyperglycemia R73.9 Tobacco dependency F17.200 Time Spent (min) 58
[2023-04-22 11:21] LABS: Thyroid Stimulating Hormone 2.34 uIU/mL (0.27-4.20)
[2023-04-22 11:27] LABS: Adenovirus Not Detected (NOT DETECT); Chlamydia Pneumoniae Not Detected (NOT DETECT); Coronavirus 229E,HKU1,NL63,OC4 Not Detected (NOT DETECT); Human Metapneumovirus Not Detected (NOT DETECT); Human Rhinovirus/Enterovirus Not Detected (NOT DETECT); Influenza A Not Detected (NOT DETECT); Influenza A H1 Not Detected (NOT DETECT); Influenza A H1-2009 Not Detected (NOT DETECT); Influenza A H3 Not Detected (NOT DETECT); Influenza B Not Detected (NOT DETECT); Mycoplasma Pneumoniae Not Detected (NOT DETECT); Parainfluenza Virus Type 1 Not Detected (NOT DETECT); Parainfluenza Virus Type 2 Not Detected (NOT DETECT); Parainfluenza Virus Type 3 Not Detected (NOT DETECT); Parainfluenza Virus Type 4 Not Detected (NOT DETECT); Respiratory Syncytial Virus A Not Detected (NOT DETECT); Respiratory Syncytial Virus B Not Detected (NOT DETECT); SARS-COV-2 Not Detected (NOT DETECT)
[2023-04-22 11:30] LABS: Estmated Average Glucose 108; Hemoglobin A1C 5.4 % (4.0-6.0)
--- NOTE | 2023-04-22 12:47 | ECG_ITS ---
[facility] Test Date: 2023-04-22 Pat Name: Fred Orosco Department: Room: 255 Gender: Male Bundle Shaker: : 1975 Requested By: Deangelo Maldonado Order Number: [id number] Simon MD: Mayco Hunter M.D. Measurements Intervals [place] Rate: 87 P: 51 AR: 166 QRS: 71 QRSD: 98 T: 64 QT: 327 QTc: 395 Interpretive Statements SINUS RHYTHM POSSIBLE RIGHT VENTRICULAR CONDUCTION DELAY [RSR (QR) IN V1/V2] Compared to ECG 04/22/2023 08:39:05 Early repolarization no longer present Electronically Signed On 04-22-2023 21:52:41 CARBONATION TESTER by Mayco Hunter M.D. [email or web address] ([email or web address]) montgomery va medical centerRentablesuniversity hospitals [facility].Yingying Licai/store/OM/[id number]
[2023-04-22 13:20] LABS: Troponin 5 6HR 6.82 ng/L (0-15)
[2023-04-22 13:21] LABS: Troponin 5 6HR Delta -4.18 ng/L (0-12)
[2023-04-22] MEDS: cefTRIAXone 1,000 MG in sodium chloride 0.9% (plus) 50 ML 100 MG IV (14:30)
[2023-04-22] MEDS: nicotine 21 mg Patch 1 PATCH TRANSDERMA (14:30)
[2023-04-22] MEDS: azithromycin 500 MG in sodium chloride 0.9% 250 ML 250 MG IV (14:34)
[2023-04-22] MEDS: methylPREDNISolone sod succ 125 mg/2 mL INJ 60 MG IVP (20:35)
[2023-04-22] MEDS: budesonide 0.5 mg/2 mL Neb INHALATION (20:46)
[2023-04-22] MEDS: lanolin oint 7 gm 1 APPLIC TOPICAL (21:18)
[2023-04-23] VITALS (15 sets, daily range): BP systolic 120–159; BP diastolic 49–81; PULSE 61–101; RESP 15–20; TEMP 36.6–37; O2SAT 89–93
[2023-04-23] MEDS: ipratropium-albuterol 3 mL Neb INHALATION ×6 (00:31→20:15)
[2023-04-23] MEDS: budesonide 0.5 mg/2 mL Neb INHALATION ×2 (08:00→20:15)
--- NOTE | 2023-04-23 08:43 | P.PN_ITS ---
Documented by User: JOCELYNN Goldsmith [facility] 04/23/23 09:00 Subjective 2 Subjective: Patient resting in bed on 4 L nasal cannula. Patient noted to still be coughing up thick yellow sputum, did reported that he had some blood in his sputum earlier in the morning. States that he is having easier time breathing today. Mr. Orosco mentioned this morning that he frequently checks his pulse ox at home and his oxygen is rarely about 92%. He denies chest pain, nausea, and vomiting. Does report getting short of breath walking to the bathroom. Plans to get up and walk around today and continue to wean down oxygen. Medications: Reviewed: Yes Vitals/I&O/Wt Last Vital Signs Temp 98.3 F 04/23/23 08:00 Pulse 61 04/23/23 08:00 Resp 15 04/23/23 08:00 BP 140/60 04/23/23 08:00 Pulse Ox 93 04/23/23 08:00 O2 Del Method Nasal Cannula 04/23/23 08:00 O2 Flow Rate 4 04/23/23 08:00 04/22/23 04/23/23 04/23/23 22:59 06:59 14:59 Intake Total 780 / 930 480 / 1410 Balance 780 / 930 480 / 1410 Weight last 48 hrs Weight 235 lb Weight 235 lb Weight 235 lb Physical Exam 2 Narrative: General: Alert and oriented and answering questions appropriately. HEENT: Atraumatic and normocephalic. Oropharynx is clear. Poor dentition is noted. Neck is supple no lymphadenopathy, no thyromegaly. Cardiovascular regular rate and rhythm, no murmur. Heart sounds distant Lungs diminished breath sounds on auscultation. On 4 L nasal cannula. Abdomen is soft nontender with positive bowel sounds. No obvious organomegaly exams deferred, including hernia exam at this visit. Extremities no cyanosis, edema, cap refill brisk. Skin no rash Neuro no obvious focal deficits, moves all extremities. Data 04/23/23 09:06 04/23/23 09:07 Micro: Microbiology 04/22/23 07:11 Blood Culture - Preliminary Blood NEGATIVE TO DATE 04/22/23 07:11 Blood Culture - Preliminary Blood NEGATIVE TO DATE 04/22/23 09:22 Gram Stain - Final Sputum - Expectorated Sputum A&P Assessment and plan (1) Right lower lobe pneumonia: Patient presents with right lower lobe pneumonia Continue Rocephin and azithromycin Sputum culture pending. COVID testing negative Continue to wean oxygen as tolerated (2) Hemoptysis: Patient reports hemoptysis CTA of chest results: . 1. Proximal main pulmonary arteries are normal. No evidence of pulmonary embolus. 2. Advanced chronic emphysematous changes. No focal pneumonia or pleural fluid. Bibasilar atelectasis. 3. Prominent RIGHT hilar lymph nodes measuring up to 1.2 cm. These are nonspecific but may be reactive. Recommend 3-month follow-up chest CT. 4. Scattered subcentimeter pulmonary nodules described above. Recommend 12- month chest CT follow-up. (3) Acute exacerbation of chronic obstructive pulmonary disease: Patient with acute exacerbation of COPD. COPD is likely secondary to prior history of wheezing before illness, long history of smoking Continue Solu-Medrol 60 mg IV every 12 hours Conitnue DuoNeb every 4 hours Contnue Budesonide twice daily Counseled to stop smoking Pulmonary follow-up has been arranged from his previous ER visit (4) Inguinal hernia: Patient with history of right inguinal hernia Will need follow-up with surgery. No evidence of incarceration currently. (5) Incidental pulmonary nodule: See above (6) Hyperglycemia: Check hemoglobin A1c (7) Tobacco dependency: Counseled to stop smoking Continue nicotine patch Plan Chest discomfort. This is likely related to his coughing, pneumonia, COPD. However, will continually reevaluate Full code Lovenox for DVT prophylaxis Coding Level of Care Code 67411 Diagnoses Right lower lobe pneumonia J18.9 Hemoptysis R04.2 Acute exacerbation of chronic obstructive pulmonary disease J44.1 Inguinal hernia K40.90 Incidental pulmonary nodule R91.1 Hyperglycemia R73.9 Tobacco dependency F17.200 Time Spent (min) 21 Documented by User: Alireza Salas MD 04/23/23 11:30 Physical Exam 2 Narrative: General: Alert and oriented and answering questions appropriately. Neck is supple no lymphadenopathy, no thyromegaly. Cardiovascular regular rate and rhythm, no murmur. Heart sounds distant Lungs diminished breath sounds on auscultation. On 4 L nasal cannula. Abdomen is soft nontender with positive bowel sounds. No obvious organomegaly Extremities no cyanosis, edema, cap refill brisk. Data 04/23/23 09:06 04/23/23 09:07 A&P Assessment and plan (1) Right lower lobe pneumonia: (2) Hemoptysis: Patient reports hemoptysis CTA of chest results: . 1. Proximal main pulmonary arteries are normal. No evidence of pulmonary embolus. 2. Advanced chronic emphysematous changes. No focal pneumonia or pleural fluid. Bibasilar atelectasis. 3. Prominent RIGHT hilar lymph nodes measuring up to 1.2 cm. These are nonspecific but may be reactive. Recommend 3-month follow-up chest CT. 4. Scattered subcentimeter pulmonary nodules described above. Recommend 12- month chest CT follow-up. Consider pulmonary follow-up at discharge (3) Acute exacerbation of chronic obstructive pulmonary disease: Patient with acute exacerbation of COPD. COPD is likely secondary to prior history of wheezing before illness, long history of smoking Continue Solu-Medrol 60 mg IV every 12 hours Conitnue DuoNeb every 4 hours Continue Budesonide twice daily Counseled to stop smoking Pulmonary follow-up has been arranged from his previous ER visit (4) Inguinal hernia: (5) Incidental pulmonary nodule: (6) Hyperglycemia: (7) Tobacco dependency: Plan Chest discomfort. This is likely related to his coughing, pneumonia, COPD. However, will continually reevaluate. No reports of chest discomfort currently Full code Lovenox for DVT prophylaxis Attestations 2 Medical Necessity Statement*: Needs continued hospitalization secondary to acute COPD exacerbation requiring frequent nebs, IV steroids Diagnoses Right lower lobe pneumonia J18.9 Hemoptysis R04.2 Acute exacerbation of chronic obstructive pulmonary disease J44.1 Inguinal hernia K40.90 Incidental pulmonary nodule R91.1 Hyperglycemia R73.9 Tobacco dependency F17.200 Time Spent (min) 21
[2023-04-23] MEDS: nicotine 21 mg Patch 1 PATCH TRANSDERMA (08:58)
[2023-04-23] MEDS: enoxaparin 40 mg/0.4 mL Syringe SUBCUT (08:59)
[2023-04-23 09:22] LABS: Basophils % 0.2 %; Hematocrit 46.4 % (37-53); Lymphocytes # 1.8 10^3/uL (0.8-4.8); Lymphocytes % 7.9 %; Mean Corpuscular HGB Conc 34.5 g/dL (30-55); Mean Corpuscular Hemoglobin 30.2 pg (27-33); Mean Corpuscular Volume 87.5 fl (82-101); Mean Platelet Volume 8.7 fL (7.4-10.4); Monocytes # 1.1 10^3/uL (0.2-0.9); Monocytes % 4.7 %; Neutrophils # 19.32 10^3/uL (1.8-7.7); Nucleated Red Blood Cells % 0 %; Platelet Count 337 10^3/cmm (157-399); Red Cell Distribution Width 12.4 % (12.1-15.1); White Blood Count 22.47 10^3/uL (3.29-11.43)
[2023-04-23 09:41] LABS: Anion Gap 14.8 (5-19); Blood Urea Nitrogen 14 mg/dL (6-20); Calcium 9.1 mg/dL (8.5-10.5); Carbon Dioxide 25 mmol/L (22-29); Chloride 102 mmol/L (98-107); Creatinine Clr Calc Pharmacy 149.0809; Glomerular Filtration Rate 103.2 mL/min (90-130); Glucose 204 mg/dL (65-115); Osmolality Calculated 292 mOsm/kg (285-295); Potassium 3.8 mmol/L (3.5-5.1); Sodium 138 mmol/L (136-145)
--- NOTE | 2023-04-23 10:14 | PC.CHAP ---
Pastoral Care Encounter/Spiritual Assessment Type of Contact [] Declined art museum aide visit [] Patient/Family/Request visit [] Outpatient visit [] Follow-up visit [] Physician referral [] Code/Alert [x] Routine visit [] Staff referral [] Actively dying [] Patient sleeping [] Family support [] [] Out of room [] Palliative care [] [x] Receiving care in room [] Pre-surgical visit [] Trauma [] Long length of stay [] ICU visit [] Other: Relational/Emotional Strength [x] Patient feels connected with others/family/visitors/staff [] Distress [] Loneliness/isolation [] Abandonment Spirituality of Patient [x] Person of Mariella [] Attends Mandaen of their Mariella [x] Believes in Prayer [] Reads Bible or Gnosticist materials [] There are Spiritual issues to be addressed Rn Documentation Interventions [x] Prayer [x] Active listening [x] Non-anxious presence [x] Spiritual/emotional support [] Crisis/trauma care [x] Spiritual counseling [] Bereavement support [] Provided bereavement packet [] Provided Bible/devotional materials [] Provided toy/stuffed animal, coloring book to patient or family member [] Provided Communion [] Anointing/[place] [] Salvation [x] Completed spiritual assessment [] Other: Impact on Illness or Injury [] Angry [] Fearful [] Anxious [] Often cries [] Exhaustion [] Unable to work [] Unable to attend buddhism [] Unable to walk/stand [] Unable to read [] Unable to drive [] Unable to eat/drink [] Unable to sleep [] Unable to be with family [] Patient intubated [] Other: Summary waiting on doctors results from tests +1 needs to clear up lungs before they can do some other proceeduers not sure at what point he will go home Time spent with patient 10 mins
[2023-04-23] MEDS: methylPREDNISolone sod succ 125 mg/2 mL INJ 60 MG IVP ×2 (10:16→19:56)
[2023-04-23] MEDS: cefTRIAXone 1,000 MG in sodium chloride 0.9% (plus) 50 ML 100 MG IV (14:20)
[2023-04-23] MEDS: azithromycin 500 MG in sodium chloride 0.9% 250 ML 250 MG IV (14:21)
[2023-04-24] VITALS (11 sets, daily range): BP systolic 102–152; BP diastolic 55–88; PULSE 53–89; RESP 14–18; TEMP 36.4–36.7; O2SAT 87–97
[2023-04-24] MEDS: ipratropium-albuterol 3 mL Neb INHALATION ×3 (00:07→11:25)
[2023-04-24] MEDS: budesonide 0.5 mg/2 mL Neb INHALATION (08:02)
[2023-04-24] MEDS: nicotine 21 mg Patch 1 PATCH TRANSDERMA (09:37)
[2023-04-24] MEDS: enoxaparin 40 mg/0.4 mL Syringe SUBCUT (09:37)
[2023-04-24] MEDS: methylPREDNISolone sod succ 125 mg/2 mL INJ 60 MG IVP (09:51)
--- NOTE | 2023-04-24 12:28 | PM.DCS ---
Discharge Providers Date of Admission: 04/22/23 08:13 Date of Discharge: April 24, 2023 Attending Provider at Admission: Alireza Salas MD Attending Provider at Discharge: Alireza Salas MD Diagnoses at Discharge Discharge Diagnosis (1) Right lower lobe pneumonia: Status: Acute (2) Hemoptysis: Status: Acute (3) Acute exacerbation of chronic obstructive pulmonary disease: Status: Acute (4) Inguinal hernia: Status: Acute (5) Incidental pulmonary nodule: Status: Acute (6) Hyperglycemia: Status: Acute (7) Tobacco dependency: Status: Acute Reason for Visit Reason for Visit: chest pain Hospital Course Hospital Course Fred is a 48-year-old smoker presented to the hospital with wheezing and shortness of breath. He had recently been on doxycycline, with failure of outpatient treatment. There was concern of pneumonia on his x-ray. Secondary to hemoptysis a CTA was performed. This demonstrated no pulmonary embolism. Some enlarged lymph nodes were noted, and several pulmonary nodules and there was a recommendation for repeat CT scan in 3 months. Secondary to hypoxia, wheezing he was diagnosed with an acute COPD exacerbation placed on IV steroids, and ultimately oral steroids. Antibiotics of Rocephin and azithromycin were needed. He was initially on 4 L of oxygen. By end of hospital course he had tapered 2 L. He had been afebrile. He was able to ambulate without difficulty. He had made the comment that for the last 6 months his O2 sat had been around 88 to 90% on room air. Home oxygen evaluation previously done prior to discharge. I will start him on a Trelegy inhaler, and he will have albuterol as needed to use in the nebulized form or inhaler. He will follow-up with pulmonary in a week, and primary care provider is arranged for follow-up. He was given an opportunity ask questions, and agreed with the plan. He was encouraged to not smoke. Physical Exam Narrative: General exam is no distress Neck is supple Cardiovascular regular rate and rhythm, no murmur Lungs clear but with diminished breath sounds bilaterally Abdomen is soft Extremities no cyanosis clubbing or edema Discharge Data Studies Completed and Pending Completed Studies During Hospitalization Category Date Time Status CTA chest [CT angio chest PE protcl [id number]] Stat Cat Scan 04/22/23 10:23 Completed XR chest 1V portable [id number] Stat Exams 04/22/23 06:47 Completed Pending at discharge Category Date Time Status Blood Culture Stat Lab 04/22/23 07:11 Results Sputum Culture and Gram Stain Stat Lab 04/22/23 09:22 Results Radiology Impressions Chest X-Ray 04/22/23 06:47 IMPRESSION: No significant change. Laboratory Results WBC 22.47 10^3/uL (3.29-11.43) H 04/23/23 09:06 RBC 5.30 10^6/uL (3.85-5.65) 04/23/23 09:06 Hgb 16.00 g/dL (11.27-16.99) 04/23/23 09:06 Hct 46.4 % (37-53) 04/23/23 09:06 MCV 87.5 fl (82-101) 04/23/23 09:06 MCH 30.2 pg (27-33) 04/23/23 09:06 MCHC 34.5 g/dL (30-55) 04/23/23 09:06 RDW 12.4 % (12.1-15.1) 04/23/23 09:06 Plt Count 337 10^3/cmm (157-399) 04/23/23 09:06 MPV 8.7 fL (7.4-10.4) 04/23/23 09:06 Neut % (Auto) 86.0 % 04/23/23 09:06 Lymph % (Auto) 7.9 % 04/23/23 09:06 Potter % (Auto) 4.7 % 04/23/23 09:06 Eos % (Auto) 0.0 % 04/23/23 09:06 Baso % (Auto) 0.2 % 04/23/23 09:06 Neut # (Auto) 19.32 10^3/uL (1.8-7.7) H 04/23/23 09:06 Lymph # (Auto) 1.8 10^3/uL (0.8-4.8) 04/23/23 09:06 Potter # (Auto) 1.1 10^3/uL (0.2-0.9) H 04/23/23 09:06 Eos # (Auto) 0.0 10^3/uL (0.0-0.8) 04/23/23 09:06 Baso # (Auto) 0.0 10^3/uL (0.0-0.1) 04/23/23 09:06 Nucleated RBC % (auto) 0 % 04/23/23 09:06 Nucleated RBCs # 0.0 /100WBC 04/23/23 09:06 PT 12.40 SECONDS (12.1-14.9) 04/22/23 06:53 INR 0.90 (0.8-1.2) 04/22/23 06:53 APTT 32.1 SECONDS (23.9-36.7) 04/22/23 06:53 Specimen Type Arterial 04/22/23 07:06 Sample Site Radial, left 04/22/23 07:06 ABG pH 7.38 (7.35-7.45) 04/22/23 07:06 ABG pCO2 40.6 mmHg (35-45) 04/22/23 07:06 ABG pO2 62.7 mmHg (80.0-100.0) L 04/22/23 07:06 ABG PO2/FiO2 Ratio 0 04/22/23 07:06 ABG HCO3 24.1 mmol/L (22-26) 04/22/23 07:06 ABG O2 Saturation 93.5 04/22/23 07:06 ABG Base Excess -0.9 mmol/L (-2.0-2.0) 04/22/23 07:06 Ryan Test Pos 04/22/23 07:06 A-a O2 Gradient 9.9 mmHg (5-10) 04/22/23 07:06 Hematocrit 52.8 % (42-52) H 04/22/23 07:06 Hgb O2 Saturation 88.3 % (95-100) L 04/22/23 07:06 Carboxyhemoglobin 5.2 %THgb (0.4-20.1) 04/22/23 07:06 Methemoglobin 0.4 % (0.4-1.5) 04/22/23 07:06 Total Hemoglobin 17.2 g/dL (14-18) 04/22/23 07:06 Sodium 139.0 mmol/L (131-143) 04/22/23 07:06 Potassium 4.4 mmol/L (3.5-5.0) 04/22/23 07:06 Glucose 153.0 mg/dL (70-115) H 04/22/23 07:06 Ionized Calcium 1.2 mmol/L (1.1-1.4) 04/22/23 07:06 O2 Delivery Device Nc 04/22/23 07:06 O2 Liters/Min 1.5 % 04/22/23 07:06 FiO2 26.0 % 04/22/23 07:06 Content Specialist ID Denzel 04/22/23 07:06 Sodium 138 mmol/L (136-145) 04/23/23 09:07 Potassium 3.8 mmol/L (3.5-5.1) 04/23/23 09:07 Chloride 102 mmol/L (98-107) 04/23/23 09:07 Carbon Dioxide 25 mmol/L (22-29) 04/23/23 09:07 Anion Gap 14.8 (5-19) 04/23/23 09:07 BUN 14 mg/dL (6-20) 04/23/23 09:07 Creatinine 0.8 mg/dL (0.7-1.2) 04/23/23 09:07 GFR Calculation 103.2 mL/min (90-130) 04/23/23 09:07 Glucose 204 mg/dL (65-115) H 04/23/23 09:07 Estimat Average Glucose 108 04/22/23 06:53 Hemoglobin A1c 5.4 % (4.0-6.0) 04/22/23 06:53 Calculated Osmolality 292 mOsm/kg (285-295) 04/23/23 09:07 Lactic Acid 2.6 mmol/L (0.5-2.2) H 04/22/23 06:53 Lactic Acid (Sepsis) 1.4 mmol/L (0.5-2.2) 04/22/23 09:52 Calcium 9.1 mg/dL (8.5-10.5) 04/23/23 09:07 Total Bilirubin 0.3 mg/dL (0.15-1.2) 04/22/23 06:53 AST 13 U/L (0-40) 04/22/23 06:53 ALT 17 U/L (0-41) 04/22/23 06:53 Alkaline Phosphatase 112 U/L (40-130) 04/22/23 06:53 Troponin T Baseline 11 ng/L (0-15) 04/22/23 06:53 Troponin T 120 Minute 9.79 ng/L (0-15) 04/22/23 08:47 Delta Troponin T -1.21 ABS# (0-10) L 04/22/23 08:47 Troponin T Hi Sens 6Hr 6.82 ng/L (0-15) 04/22/23 12:42 Troponin T Hi Sens 6Hr Delta -4.18 ng/L (0-12) L 04/22/23 12:42 NT-Pro-B Natriuret Pep < 36 pg/mL (0-125) 04/22/23 06:53 Total Protein 7.1 g/dL (6.6-8.7) 04/22/23 06:53 Albumin 4.2 g/dL (3.5-5.2) 04/22/23 06:53 Globulin 2.9 g/dL (1.3-4.6) 04/22/23 06:53 TSH 2.34 uIU/mL (0.27-4.20) 04/22/23 06:53 Coronavirus 229E (PCR) Not detected (NOT DETECT) 04/22/23 09:22 Influenza Type A Ag negative (Negative) 04/22/23 09:22 Influenza Type B Ag negative (Negative) 04/22/23 09:22 SARS-CoV-2 (PCR) Not detected (NOT DETECT) 04/22/23 09:22 Vitals Last Vital Signs Temp 98.0 F 04/24/23 12:00 Pulse 78 04/24/23 12:00 Resp 16 04/24/23 12:00 BP 133/88 04/24/23 08:00 Pulse Ox 93 04/24/23 12:00 O2 Del Method Nasal Cannula 04/24/23 12:00 O2 Flow Rate 2 04/24/23 11:25 Discharge Plan Discharge Patient Disposition: Home Condition: Stable Prescriptions: New nicotine 21 mg/24 hr Patch 24 Hour 1 patch transdermal DAILY Qty: 14 0RF prednisone 20 mg Tablet 40 mg PO DAILY Qty: 8 0RF albuterol sulfate 1.25 mg/3 mL solution for nebulization 1.25 mg inhalation QID PRN (Reason: shortness of breath or wheezing) Qty: 180 1RF albuterol sulfate [Ventolin HFA] 90 mcg/actuation HFA aerosol inhaler 1 inh inhalation Q6H PRN (Reason: shortness of breath or wheezing) Qty: 8.5 0RF cefdinir 300 mg capsule 300 mg PO BID 5 Days Qty: 10 0RF Trelegy Ellipta 200-62.5-25 mcg blister with device 1 inh inhalation DAILY Qty: 60 0RF Continued guaifenesin [Mucinex] 600 mg tablet extended release 12hr 600 mg PO Q12H PRN (Reason: Congestion) Robitussin-DM 10-100 mg/5 mL Syrup 10 ml PO Q4H PRN (Reason: Cough) Pepto-Bismol 262 mg Tablet 524 mg PO .ONE TIME DOSE Discontinued doxycycline hyclate 100 mg capsule 100 mg PO BID 7 Days Qty: 14 0RF Rx Instructions: for 7 days (rx filled 04/18/23) ibuprofen 200 mg Tablet 400 mg PO Q6H PRN (Reason: Pain) Discharge Orders: Discharge Order (Routine); Ordered 04/24/23 Ordered By: Alireza Salas Other Ambulatory Orders: DME: Nebulizer with Neb Kit (Order) Location: None Selected Ordered By: Alireza Salas Referrals: KenroyrPhani MD [Physician] - 1 week (COPD, hemptysis We have notified your physician's clinic of the need for a follow-up appointment to be scheduled. If you have not heard from them within the next 2 business days, please call them directly. ) Tyrese Chacon MD [Physician] - 05/06/23 9:00 am Discharge Diet: Regular Discharge Activity: Increase activity as tolerated Patient Instructions: Opioid Safety Activity Restrictions/Additional Instructions: No smoking Take all medicine as prescribed Follow-up with your primary care provider as arranged Follow-up with pulmonary secondary to hemoptysis in 1 week Home oxygen evaluation prior to discharge Discharge Attestations Time Spent in Discharge Care*: greater than 30 min Quality Metrics Clinical Quality Measures [ No reported AMI, CVA or VTE this stay] Coding Level of Care Code 50088 Total time (in minutes) for Discharge: 32 Diagnoses Right lower lobe pneumonia J18.9 Hemoptysis R04.2 Acute exacerbation of chronic obstructive pulmonary disease J44.1 Inguinal hernia K40.90 Incidental pulmonary nodule R91.1 Hyperglycemia R73.9 Tobacco dependency F17.200
== END 2023-04-24 15:54 | disposition home or self-care (01) | DRG 190 ==
LOC: ER 11:24 → MEDSURG 12:42
PROVIDERS: Admitting Provider Internal Medicine; Emergency Provider Family Medicine; Visit Provider Internal Medicine
DX: J44.0 Chronic obstructive pulmonary disease with (acute) lower respiratory infection (principal); J18.9 Pneumonia, unspecified organism; R04.2 Hemoptysis; J44.1 Chronic obstructive pulmonary disease with (acute) exacerbation; F17.210 Nicotine dependence, cigarettes, uncomplicated; R09.02 Hypoxemia; Z99.81 Dependence on supplemental oxygen; I25.10 Atherosclerotic heart disease of native coronary artery without angina pectoris; E11.65 Type 2 diabetes mellitus with hyperglycemia; K40.90 Unilateral inguinal hernia, without obstruction or gangrene, not specified as recurrent; R91.1 Solitary pulmonary nodule; Z20.822 Contact with and (suspected) exposure to COVID-19; R59.0 Localized enlarged lymph nodes; Z91.141 Patient's other noncompliance with medication regimen due to financial hardship; T38.3X6A Underdosing of insulin and oral hypoglycemic [antidiabetic] drugs, initial encounter
CPT/HCPCS: 36415; 36600; 71045; 71275; 80048; 80051; 80053; 82330; 82805; 83036; 83605; 83880; 84443; 84484; 85025; 85610; 85730; 87040; 87070; 87205; 87635; 87804; 93005; 94640; 94760; 96372; 99285; J0456; J0696; J1100; J1650; J1956; J2930; J7050; J7626; Q3014; Q9967

== ENCOUNTER 2023-05-11 16:25 | Emergency (ER) | payer MEDICAID, SELFPAY ==
[2023-05-11 16:44] VITALS: BP 138/88; PULSE 110; RESP 18; TEMP 36.7; O2SAT 92; BMI 30.6
--- NOTE | 2023-05-11 17:53 | XRR_ITS ---
PROCEDURE INFORMATION: Exam: XR Chest Exam date and time: 05/11/2023 6:03 PM Age: 48 years old Clinical indication: Shortness of breath; Additional info: SOB TECHNIQUE: Imaging protocol: Radiologic exam of the chest. Views: 1 view. COMPARISON: CT angio chest PE protcl [id number] 04/22/2023 10:32 AM FINDINGS: Lungs: Bilateral upper lobe emphysema noted. No consolidation. Pleural spaces: Unremarkable. No pleural effusion. No pneumothorax. Heart/Mediastinum: Unremarkable. No cardiomegaly. Bones/joints: No acute findings. XR/XR chest 1V portable [id number] IMPRESSION: No acute findings.
--- NOTE | 2023-05-11 18:10 | ECG_ITS ---
[facility] Test Date: 2023-05-11 Pat Name: Fred Orosco Department: Room: Gender: Male Adult Education Professional: : 1975 Requested By: Gregg Jackson Order Number: [id number] Simon MD: Khanh Espinzoa M.D. Measurements Intervals [place] Rate: 100 P: 49 KS: 163 QRS: 77 QRSD: 101 T: 66 QT: 300 QTc: 388 Interpretive Statements SINUS TACHYCARDIA POSSIBLE RIGHT VENTRICULAR CONDUCTION DELAY [RSR (QR) IN V1/V2] Compared to ECG 04/22/2023 12:47:23 Sinus rhythm no longer present Electronically Signed On 05-12-2023 11:26:33 SAMPLE GRINDER by Khanh Espinoza M.D. [email or web address]
[2023-05-11 18:45] LABS: Basophils # 0.1 10^3/uL (0.0-0.1); Basophils % 0.6 %; Eosinophils # 0.1 10^3/uL (0.0-0.8); Eosinophils % 1.1 %; Hematocrit 45.6 % (37-53); Lymphocytes # 1.5 10^3/uL (0.8-4.8); Lymphocytes % 17.3 %; Mean Corpuscular HGB Conc 34.9 g/dL (30-55); Mean Corpuscular Hemoglobin 30.1 pg (27-33); Mean Corpuscular Volume 86.4 fl (82-101); Mean Platelet Volume 8.8 fL (7.4-10.4); Monocytes # 1.2 10^3/uL (0.2-0.9); Monocytes % 14.2 %; Neutrophils # 5.54 10^3/uL (1.8-7.7); Neutrophils % 65.7 %; Nucleated Red Blood Cells % 0 %; Platelet Count 224 10^3/cmm (157-399); Red Blood Count 5.28 10^6/uL (3.85-5.65); Red Cell Distribution Width 12.4 % (12.1-15.1); White Blood Count 8.43 10^3/uL (3.29-11.43)
--- NOTE | 2023-05-11 18:57 | ED_ITS ---
HPI - SOB/Dyspnea 2 General: Chief Complaint: Shortness of Breath/Dyspnea Stated Complaint: sob Time Seen by Provider: 05/11/23 18:03 History of Present Illness: HPI Narrative: This is a pleasant 48-year-old male with a 21-nodq-tahj history of smoking who was recently diagnosed with emphysema and also recently admitted to the hospital for newly diagnosed COPD with exacerbation plus or minus community-acquired pneumonia. He was treated with IV antibiotics and steroids. Patient has had a follow-up with pulmonology, Dr. Manning. He is using Anoro, flovent and albuterol. Patient reports his normal oxygen saturation is between 88 and 90%. Today he felt a little lightheaded and weak and checked his oxygen level. He was down to 83%. He did his breathing exercises and got it back up. He reports his sputum production has increased only slightly. It is clear. He has not had any lower extremity pain swelling redness or warmth. No history of DVT or PE. No fevers but says sometimes he feels like he does have a low-grade fever. No rhinorrhea, congestion, headache, vomiting, GI symptoms. Patient reports he got nervous because his sister went into the hospital in 2019 with respiratory issues and due to complications of pneumonia. After reviewing the nurses note as well as pulmonology note and recent CTA, it was noted that the patient did have pulmonary nodules and some hilar lymphadenopathy and is scheduled for repeat CT scan in 3 months. Associated symptoms: Deny abdominal pain, chest congestion, chest pain, extremity pain, fever(s), hemoptysis, nausea, syncope or vomiting Review of Systems 2 General: Reports: 10 or more systems reviewed and unremarkable except in HPI and below Const: Denies: fever(s), chills or body aches Eyes: Denies: change in vision ENMT: Denies: throat pain Card: Denies: chest pain, edema or syncope Resp: Reports: dyspnea and productive cough (Clear phlegm); Denies: non-productive cough, wheezing, stridor, pain on inspiration, change in phlegm color, hemoptysis or chest congestion GI: Denies: abdominal pain, nausea, vomiting or diarrhea : Denies: flank pain, dysuria or urinary frequency Musc: Denies: neck pain, back pain, extremity pain or extremity swelling Skin/Breast: Denies: rash or erythema Neuro: Denies: headache(s), numbness in extremities, weakness in extremities, lack of coordination or difficulty walking PFSH ED 2 PFSH: Medical History Smoking trying to quit COPD (chronic obstructive pulmonary disease) Hilar lymphadenopathy Pulmonary nodule less than 1 cm in diameter with moderate to high risk for malignant neoplasm Tobacco dependency Surgical History No pertinent past surgical history Family History Father Heart disease Mother Heart disease Diabetes Gout Polio Other Cancer Social History Smoking and tobacco/nicotine status: current every day tobacco/nicotine user (2 - 21/2 packs per day) cigarettes Packs smoked per day: 2 Years cigarettes smoked: 32 [ Other cigarette details: Started at 15] Alcohol intake: former Physical Exam 2 Const: COMMON NORMALS: no limitations, alert and well nourished EXAM LIMITATIONS: no altered mental status HENMT: COMMON NORMALS: normocephalic, atraumatic and external ears normal H EAD & SCALP: normocephalic and atraumatic EXTERNAL EAR: Yes external ears normal MOUTH: no muffled voice Eye: COMMON NORMALS: EOMs intact bilaterally, conjunctivae normal and no scleral icterus CONJUNCTIVA: Yes conjunctivae normal Neck/C-Spine: COMMON NORMALS: no JVD GENERAL: Yes normal visual inspection and Yes trachea midline Resp: COMMON NORMALS: normal respiratory effort and No use of accessory muscles EFFORT & INSPECTION: Yes able to speak in complete sentences, Yes symmetric chest movement, No abnormal respiratory pattern, No tachypneic, No respiratory distress, No decreased respiratory effort, No pursed lip breathing, No labored, No grunting, No Actively coughing, No retractions, No uses accessory muscles, No audible wheezes, No tripod positioning, No prolonged expiratory phase and Yes other (Diminished breath sounds throughout) Cardio: COMMON NORMALS: no JVD, regular rate and regular rhythm RATE: r egular rate RHYTHM: regular rhythm OTHER: Rate in the 90s. GI: COMMON NORMALS: Soft to palpation and non-tender PALPATION: Yes Soft to palpation and No Guarding due to palpation present (GI) Extremity: COMMON NORMALS: normal to inspection Neuro: COMMON NORMALS: moves all extremities, no focal motor deficits and no sensory deficits noted SENSORIUM/ORIENTATION: Yes alert SPEECH: speech normal Psych: COMMON NORMALS: mental status grossly normal, Normal thought process present, cooperative, normal affect and speech normal SPEECH: Yes normal speech THOUGHT PROCESS: Normal thought process present Skin: COMMON NORMALS: no rashes or lesions noted, turgor normal and no jaundice GENERAL SKIN EXAM: no rashes or lesions noted and turgor normal Course 2 Vital Signs: Vital signs: Vital Signs Temperature 98.1 F 05/11/23 16:44 Pulse Rate 90 05/11/23 19:38 Respiratory Rate 18 05/11/23 19:38 Blood Pressure 120/72 05/11/23 19:38 Pulse Oximetry 87 L 05/11/23 20:41 Oxygen Delivery Me thod Room Air 05/11/23 16:44 Oxygen Flow Rate 5 05/11/23 20:41 MDM - SOB/Dyspnea Medical Decision Making Suspect this is par for the course with his emphysema. Patient tells me that he did qualify for oxygen while at rest but reports prior to discharge he did a ambulation test where he only went a few steps and the respiratory therapist told him he did not need oxygen. He says he did not go far enough to feel like it was a legitimate test. Patient says his baseline oxygen is around 88 to 90%. He feels like he probably needs oxygen at home. His sputum has increased only slightly and there is no increased purulence. No fevers. His breath sounds are decreased but his work of breathing is normal. Chest x-ray does show some emphysematous changes but I do not see any focal infiltrates, pneumothorax, effusions, cardiomegaly. There is no JVD or edema on exam. He does not have any clinical signs or symptoms of DVT. Patient would like a workup to make sure nothing else is going on. We have placed orders for COVID, flu, home oxygen qualification test with RT, and check labs. EKG was also performed. See interpretation below. Update 1999 CBC with differential normal, CMP unremarkable, COVID and flu antigens both negative. Chest x-ray showing emphysema without any acute changes. D-dimer negative. The patient appears to need between 2 and 3 L/min of oxygen via nasal cannula to mean his oxygen saturations above 88% while at rest. Patient told me that the home oxygen qualification test he did prior to discharge seemed rushed and probably nondiagnostic as he only walked a few feet. I repeated the home oxygen qualification test today. Patient needs 3 L/min at rest and 4 to 5 L/min with ambulation. I have ordered home oxygen through the DME order. We will have a home health company bring it in so that patient can be discharged with both portable and concentrator. Patient has a pulse oximeter at home which he can use to record his pulse oximetry levels 3 times a day and make a journal and then report to his primary care provider. I am going to go ahead and put him on prednisone 20 mg daily for 5 days and azithromycin for possible I do not think he is hypercapnic or at least is not having any uncompensated hypercapnia. Therefore, I did not do an ABG. Discussed all of these findings with the patient and the plan. Patient is in agreement and we will plan to discharge as soon as home oxygen arrives. Lab Data 05/11/23 18:20 05/11/23 18:20 Labs/Radiology: Radiology Impressions Chest X-Ray 05/11/23 17:53 IMPRESSION: No acute findings. Laboratory Results WBC 8.43 10^3/uL (3.29-11.43) 05/11/23 18:20 RBC 5.28 10^6/uL (3.85-5.65) 05/11/23 18:20 Hgb 15.90 g/dL (11.27-16.99) 05/11/23 18:20 Hct 45.6 % (37-53) 05/11/23 18:20 MCV 86.4 fl (82-101) 05/11/23 18:20 MCH 30.1 pg (27-33) 05/11/23 18:20 MCHC 34.9 g/dL (30-55) 05/11/23 18:20 RDW 12.4 % (12.1-15.1) 05/11/23 18:20 Plt Count 224 10^3/cmm (157-399) 05/11/23 18:20 MPV 8.8 fL (7.4-10.4) 05/11/23 18:20 Neut % (Auto) 65.7 % 05/11/23 18:20 Lymph % (Auto) 17.3 % 05/11/23 18:20 [place] % (Auto) 14.2 % 05/11/23 18:20 Eos % (Auto) 1.1 % 05/11/23 18:20 Baso % (Auto) 0.6 % 05/11/23 18:20 Neut # (Auto) 5.54 10^3/uL (1.8-7.7) 05/11/23 18:20 Lymph # (Auto) 1.5 10^3/uL (0.8-4.8) 05/11/23 18:20 [place] # (Auto) 1.2 10^3/uL (0.2-0.9) H 05/11/23 18:20 Eos # (Auto) 0.1 10^3/uL (0.0-0.8) 05/11/23 18:20 Baso # (Auto) 0.1 10^3/uL (0.0-0.1) 05/11/23 18:20 Nucleated RBC % (auto) 0 % 05/11/23 18:20 Nucleated RBCs # 0.0 /100WBC 05/11/23 18:20 D-Dimer 0.28 ug/mLFEU (0-0.59) 05/11/23 18:20 Sodium 136 mmol/L (136-145) 05/11/23 18:20 Potassium 3.6 mmol/L (3.5-5.1) 05/11/23 18:20 Chloride 100 mmol/L (98-107) 05/11/23 18:20 Carbon Dioxide 24 mmol/L (22-29) 05/11/23 18:20 Anion Gap 15.6 (5-19) 05/11/23 18:20 BUN 17 mg/dL (6-20) 05/11/23 18:20 Creatinine 0.9 mg/dL (0.7-1.2) 05/11/23 18:20 GFR Calculation 90.1 mL/min (90-130) 05/11/23 18:20 Glucose 114 mg/dL (65-115) 05/11/23 18:20 Calculated Osmolality 284 mOsm/kg (285-295) L 05/11/23 18:20 Calcium 9.1 mg/dL (8.5-10.5) 05/11/23 18:20 Total Bilirubin 0.4 mg/dL (0.15-1.2) 05/11/23 18:20 AST 11 U/L (0-40) 05/11/23 18:20 ALT 18 U/L (0-41) 05/11/23 18:20 Alkaline Phosphatase 92 U/L (40-130) 05/11/23 18:20 NT-Pro-B Natriuret Pep < 36 pg/mL (0-125) 05/11/23 18:20 Total Protein 7.1 g/dL (6.6-8.7) 05/11/23 18:20 Albumin 4.0 g/dL (3.5-5.2) 05/11/23 18:20 Globulin 3.1 g/dL (1.3-4.6) 05/11/23 18:20 Influenza Type A Ag negative (Negative) 05/11/23 18:41 Influenza Type B Ag negative (Negative) 05/11/23 18:41 SARS-CoV-2 Ag (Rapid) negative (Negative) 05/11/23 18:41 All radiology interpretation(s) finalized by discharge ED provider radiology interpretation(s): Chest x-ray 1 view. EP interpretation. Emphysematous changes, no flattening of the diaphragms. Not hyperinflated. No infiltrates noted. Normal cardiac silhouette, no visible pneumothorax or effusions. EKG Data EKG 1: Interpretation: Sinus tachycardia, rate 100, normal axis, QRS duration 101 ms with a right bundle branch block, no concerning ST segment elevations or depressions. No ectopy., QTc within normal limits. Discharge Plan Discharge Patient Disposition: Home Clinical Impression: Acute exacerbation of chronic obstructive airways disease, Acute hypoxic respiratory failure Condition: Stable Prescriptions: New prednisone 20 mg tablet 20 mg PO DAILY 3 Days Qty: 5 0RF azithromycin 250 mg tablet 250 mg PO DAILY 5 Days Qty: 5 0RF No Action guaifenesin [Mucinex] 600 mg tablet extended release 12hr 600 mg PO Q12H PRN (Reason: Congestion) Qty: 60 1RF fluticasone propionate [Flovent HFA] 110 mcg/actuation HFA aerosol inhaler 1 puff inhalation BID Stiolto Respimat 2.5-2.5 mcg/actuation mist 2 puff inhalation DAILY Qty: 4 3RF albuterol sulfate 1.25 mg/3 mL solution for nebulization 1.25 mg inhalation QID PRN (Reason: shortness of breath or wheezing) Qty: 180 1RF dextromethorphan-guaifenesin 10-100 mg/5 mL Syrup 10 ml PO Q4H PRN (Reason: Cough) Pepto-Bismol 262 mg Tablet 524 mg PO .ONE TIME DOSE Ventolin HFA 90 mcg/actuation HFA aerosol inhaler 1 inh inhalation Q6H PRN (Reason: shortness of breath or wheezing) Qty: 8.5 0RF Discharge Orders: Discharge ED (Routine); Ordered 05/11/23 Ordered By: Alvin Alba Other Ambulatory Orders: DME: Oxygen (Order) Location: None Selected Ordered By: Alvin Alba Referrals: Tyrese Chacon MD [Primary Care Provider] - 4-7 days (F/u for hypoxic respiratory failure, suspected to be from COPD.) Discharge Activity: Increase activity as tolerated Patient Instructions: COPD - Emphysema, Using Oxygen at Home (ED), COPD Stoplight Activity Restrictions/Additional Instructions: You have qualified for home oxygen. Use 3 L/min at rest and 4 to 5 L/min while exerting yourself. You have been prescribed prednisone and azithromycin for possible COPD flare. Continue using your inhalers. Check your oxygen saturation 3 times a day and record. Please wear your home oxygen at night with settings at 3 L/min. Make a follow-up appointment with your primary care doctor for 4 to 7 days. Return to the emergency department if you have fever, increasing shortness of breath, swelling, chest pain, swelling of the extremity, pain in the extremity, lightheadedness, passing out, or other worsening symptoms. Coding Level of Care Code ED Gis Professor for Cayden Olivares
[2023-05-11 18:59] LABS: D Dimer 0.28 ug/mLFEU (0-0.59)
[2023-05-11 19:06] LABS: Influenza A by IFA negative (Negative); Influenza B by IFA negative (Negative); SARS Covid-2 Antigen negative (Negative)
[2023-05-11 19:10] LABS: Alanine Aminotransferase 18 U/L (0-41); Alkaline Phosphatase 92 U/L (40-130); Anion Gap 15.6 (5-19); Aspartate Amino Transferase 11 U/L (0-40); Blood Urea Nitrogen 17 mg/dL (6-20); Calcium 9.1 mg/dL (8.5-10.5); Carbon Dioxide 24 mmol/L (22-29); Chloride 100 mmol/L (98-107); Globulin 3.1 g/dL (1.3-4.6); Glomerular Filtration Rate 90.1 mL/min (90-130); Glucose 114 mg/dL (65-115); NT Pro B Type Natriuretic Pept < 36 pg/mL (0-125); Osmolality Calculated 284 mOsm/kg (285-295); Potassium 3.6 mmol/L (3.5-5.1); Sodium 136 mmol/L (136-145); Total Bilirubin 0.4 mg/dL (0.15-1.2); Total Protein 7.1 g/dL (6.6-8.7)
[2023-05-11 19:38] VITALS: BP 120/72; PULSE 90; RESP 18; O2SAT 91
[2023-05-11 20:41] VITALS: O2SAT 87; O2SAT 88
[2023-05-11] MEDS: predniSONE 20 mg Tablet PO (21:15)
[2023-05-11] MEDS: azithromycin 250 mg Tablet 500 MG PO (21:15)
--- NOTE | 2023-05-11 22:03 | PC.NURSE ---
discharge delayed d/t waiting on HOME to bring home oxygen.
[2023-05-11 22:33] VITALS: BP 128/79; O2SAT 98
== END 2023-05-11 22:30 | disposition home or self-care (01) ==
PROVIDERS: Emergency Medicine; Emergency Provider Emergency Medicine; PCP Family Medicine Adult Medicine
DX: J44.1 Chronic obstructive pulmonary disease with (acute) exacerbation (principal); J96.01 Acute respiratory failure with hypoxia; Z11.52 Encounter for screening for COVID-19; F17.210 Nicotine dependence, cigarettes, uncomplicated
CPT/HCPCS: 36415; 71045; 80053; 83880; 85025; 85378; 87426; 87804; 93005; 99285; J7512; Q0144

== ENCOUNTER 2023-05-27 06:46 | Outpatient (CLI) | payer MEDICAID, SELFPAY ==
[2023-05-27 07:21] VITALS: PULSE 92; RESP 18; O2SAT 95
[2023-05-27] MEDS: albuterol 2.5 mg/3 mL Neb INHALATION (07:21)
[2023-05-27 07:26] VITALS: PULSE 96
== END 2023-05-27 06:47 | disposition home or self-care (01) ==
LOC: RT 06:47
PROVIDERS: PCP Family Medicine Adult Medicine; Visit Provider Internal Medicine Pulmonary Disease
DX: J44.9 Chronic obstructive pulmonary disease, unspecified (principal); Z87.891 Personal history of nicotine dependence; R94.2 Abnormal results of pulmonary function studies
CPT/HCPCS: 94060; 94618; 94726; 94729; J7613

== ENCOUNTER 2023-07-26 11:16 | Emergency (ER) | payer MEDICAID, SELFPAY ==
[2023-07-26 11:21] VITALS: BP 116/92; PULSE 99; RESP 16; TEMP 36.3; O2SAT 95; BMI 32.5
--- NOTE | 2023-07-26 11:27 | ECG_ITS ---
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 Measurements Intervals [place] Rate: 95 P: 59 LA: 152 QRS: 71 QRSD: 99 T: 62 QT: 316 QTc: 398 Interpretive Statements SINUS RHYTHM POSSIBLE RIGHT VENTRICULAR CONDUCTION DELAY [RSR (QR) IN V1/V2] Compared to ECG 05/11/2023 18:10:22 Sinus tachycardia no longer present Electronically Signed On 07-26-2023 21:41:56 CDT by Mayco Hunter M.D. [id number] f
--- NOTE | 2023-07-26 11:27 | XRR_ITS ---
PROCEDURE INFORMATION: Exam: XR Chest Exam date and time: 07/26/2023 11:29 AM Age: 48 years old Clinical indication: Pain; Chest pressure; Additional info: Cp TECHNIQUE: Imaging protocol: Radiologic exam of the chest. Views: 1 view. COMPARISON: CR XR chest 1V portable [id number] 05/11/2023 6:03 PM FINDINGS: Lungs: Both lungs demonstrate chronic interstitial coarsening. No lung mass or infiltrate. Pleural spaces: Unremarkable. No pleural effusion. No pneumothorax. Heart/Mediastinum: Unremarkable. No cardiomegaly. Bones/joints: Unremarkable. XR/XR chest 1V portable [id number] IMPRESSION: No acute findings.
--- NOTE | 2023-07-26 11:31 | ED_ITS ---
HPI - SOB/Dyspnea 2 General: Chief Complaint: Shortness of Breath/Dyspnea Stated Complaint: left side abd pain, sob Time Seen by Provider: 07/26/23 11:19 Source: patient Mode of arrival: ambulatory Limitations: no limitations History of Present Illness: HPI Narrative: 48-year-old male with a history of COPD states that when he got bed this morning he stretched his left arm over his head felt a pop in his left lower chest. She has been having a sharp pain in that left lower region since then. This happened 8 AM he states the pain is worse with deep inspirations and palpation rates the pain a 5 out of 10 denies any cough or fever Associated symptoms: Reports chest pain; Deny abdominal pain, fever(s), nausea or vomiting Review of Systems 2 Const: Denies: fever(s), chills, body aches or change in appetite ENMT: Denies: throat pain or dental pain Card: Reports: chest pain Resp: Denies: dyspnea GI: Denies: abdominal pain, nausea, vomiting or diarrhea Musc: Denies: neck pain or back pain Skin/Breast: Denies: rash Neuro: Denies: headache(s) PFSH ED 2 PFSH: Medical History Former heavy cigarette smoker (20-39 per day) Quit smoking 04/22/2023 Chronic GERD COPD (chronic obstructive pulmonary disease) Hilar lymphadenopathy Pulmonary nodule less than 1 cm in diameter with moderate to high risk for malignant neoplasm Surgical History No pertinent past surgical history Family History Father Heart disease Mother Heart disease Diabetes Gout Polio Other Cancer Social History Smoking and tobacco/nicotine status: current every day tobacco/nicotine user (2 - 21/2 packs per day) cigarettes Packs smoked per day: 2 Years cigarettes smoked: 32 [ Other cigarette details: Started at 15] Alcohol intake: former Physical Exam 2 Const: COMMON NORMALS: no acute distress, patient oriented x3 and healthy appearing HENMT: COMMON NORMALS: normocephalic and atraumatic HEAD & SCALP: n ormocephalic and atraumatic Neck/C-Spine: COMMON NORMALS: full ROM and supple Chest: COMMONS NORMALS: normal inspection of the chest OTHER: point tender over left lower chest Resp: COMMON NORMALS: normal respiratory effort, No retractions, No use of accessory muscles and clear to auscultation bilaterally AUSCULTATION: clear to auscultation bilaterally Cardio: COMMON NORMALS: regular rate, regular rhythm and No murmurs present (Cardio) RATE: regular rate RHYTHM: regular rhythm GI: COMMON NORMALS: Normal to inspection, nondistended, normoactive bowel sounds present, Soft to palpation, non-tender and no masses PALPATION: Yes Soft to palpation Extremity: COMMON NORMALS: normal to inspection and full ROM Neuro: COMMON NORMALS: patient oriented x3, moves all extremities and no focal motor deficits Psych: COMMON NORMALS: mental status grossly normal, Normal thought process present and cooperative THOUGHT PROCESS: Normal thought process present Skin: COMMON NORMALS: no rashes or lesions noted and no wounds GENERAL SKIN EXAM: no rashes or lesions noted Course 2 Vital Signs: Vital signs: Vital Signs Temperature 97.4 F L 07/26/23 11:21 Pulse Rate 84 07/26/23 11:55 Respiratory Rate 14 07/26/23 11:55 Blood Pressure 142/100 07/26/23 11:55 Pulse Oximetry 94 07/26/23 11:55 Oxygen Delivery Me thod Room Air 07/26/23 11:21 MDM - SOB/Dyspnea Medical Decision Making Patient presents here with chest pain likely chest wall pain he is point tender on exam x-ray troponin are normal no signs of acute coronary syndrome he is stable for discharge he is follow-up with PCP and return if worsening he understands agrees to plan Medical Records I reviewed the patient's medical records. Lab Data I reviewed the patient's lab results. 07/26/23 11:24 07/26/23 11:24 Labs/Radiology: Radiology Impressions Chest X-Ray 07/26/23 11:27 IMPRESSION: No acute findings. Laboratory Results WBC 9.97 10^3/uL (3.29-11.43) 07/26/23 11:24 RBC 5.62 10^6/uL (3.85-5.65) 07/26/23 11:24 Hgb 17.00 g/dL (11.27-16.99) H 07/26/23 11:24 Hct 48.1 % (37-53) 07/26/23 11:24 MCV 85.6 fl (82-101) 07/26/23 11:24 MCH 30.2 pg (27-33) 07/26/23 11:24 MCHC 35.3 g/dL (30-55) 07/26/23 11:24 RDW 12.8 % (12.1-15.1) 07/26/23 11:24 Plt Count 303 10^3/cmm (157-399) 07/26/23 11:24 MPV 8.6 fL (7.4-10.4) 07/26/23 11:24 Neut % (Auto) 59.7 % 07/26/23 11:24 Lymph % (Auto) 24.8 % 07/26/23 11:24 [place] % (Auto) 9.5 % 07/26/23 11:24 Eos % (Auto) 4.0 % 07/26/23 11:24 Baso % (Auto) 0.9 % 07/26/23 11:24 Neut # (Auto) 5.95 10^3/uL (1.8-7.7) 07/26/23 11:24 Lymph # (Auto) 2.5 10^3/uL (0.8-4.8) 07/26/23 11:24 [place] # (Auto) 1.0 10^3/uL (0.2-0.9) H 07/26/23 11:24 Eos # (Auto) 0.4 10^3/uL (0.0-0.8) 07/26/23 11:24 Baso # (Auto) 0.1 10^3/uL (0.0-0.1) 07/26/23 11:24 Nucleated RBC % (auto) 0 % 07/26/23 11:24 Nucleated RBCs # 0.0 /100WBC 07/26/23 11:24 Sodium 135 mmol/L (136-145) L 07/26/23 11:24 Potassium 4.4 mmol/L (3.5-5.1) 07/26/23 11:24 Chloride 99 mmol/L (98-107) 07/26/23 11:24 Carbon Dioxide 23 mmol/L (22-29) 07/26/23 11:24 Anion Gap 17.4 (5-19) 07/26/23 11:24 BUN 13 mg/dL (6-20) 07/26/23 11:24 Creatinine 0.8 mg/dL (0.7-1.2) 07/26/23 11:24 GFR Calculation 103.2 mL/min (90-130) 07/26/23 11:24 Glucose 100 mg/dL (65-115) 07/26/23 11:24 Calculated Osmolality 280 mOsm/kg (285-295) L 07/26/23 11:24 Calcium 9.4 mg/dL (8.5-10.5) 07/26/23 11:24 Total Bilirubin 0.5 mg/dL (0.15-1.2) 07/26/23 11:24 AST 20 U/L (0-40) 07/26/23 11:24 ALT 25 U/L (0-41) 07/26/23 11:24 Alkaline Phosphatase 92 U/L (40-130) 07/26/23 11:24 Troponin T Baseline 9 ng/L (0-15) 07/26/23 11:24 Total Protein 7.7 g/dL (6.6-8.7) 07/26/23 11:24 Albumin 4.6 g/dL (3.5-5.2) 07/26/23 11:24 Globulin 3.1 g/dL (1.3-4.6) 07/26/23 11:24 All radiology interpretation(s) finalized by discharge EKG Data EKG 1: I personally reviewed and interpreted this EKG as follows: EKG Interpretation Date: 07/26/23 EKG interpretation time: 11:23 Interpretation: nsr hr [address] or t wave abnormalities qrs 99 qtc 369 Discharge Plan Discharge Patient Disposition: Home Clinical Impression: Chest wall pain Prescriptions: New Naprosyn 500 mg tablet 500 mg PO BID PRN (Reason: pain) Qty: 20 0RF No Action Stiolto Respimat 2.5-2.5 mcg/actuation mist 2 puff inhalation DAILY albuterol sulfate [Ventolin HFA] 90 mcg/actuation HFA aerosol inhaler 1 inh inhalation Q6H PRN (Reason: shortness of breath or wheezing) Qty: 8.5 3RF pantoprazole 40 mg tablet,delayed release (DR/EC) 40 mg PO DAILY PRN (Reason: acid reflux) Qty: 60 1RF albuterol sulfate 1.25 mg/3 mL solution for nebulization 1.25 mg inhalation QID PRN (Reason: shortness of breath or wheezing) Qty: 180 1RF guaifenesin [Mucinex] 600 mg tablet extended release 12hr 600 mg PO Q12H PRN (Reason: Congestion) Qty: 60 1RF fluticasone propionate 220 mcg/actuation HFA aerosol inhaler 1 puff inhalation BID Qty: 12 3RF Aspir-81 81 mg Tablet,Delayed Release (Dr/Ec) 81 mg PO DAILY Discharge Orders: Discharge ED (Routine); Ordered 07/26/23 Ordered By: Gregg Jackson Referrals: Tyrese Chacon MD [Primary Care Provider] - 1-3 days Discharge Diet: Advance as tolerated Discharge Activity: Resume usual activity Patient Instructions: Chest Wall Pain (ED) Coding Level of Care Code ED Dock Worker for Cayden Olivares
[2023-07-26 11:35] LABS: Basophils # 0.1 10^3/uL (0.0-0.1); Basophils % 0.9 %; Eosinophils # 0.4 10^3/uL (0.0-0.8); Hematocrit 48.1 % (37-53); Lymphocytes # 2.5 10^3/uL (0.8-4.8); Lymphocytes % 24.8 %; Mean Corpuscular HGB Conc 35.3 g/dL (30-55); Mean Corpuscular Hemoglobin 30.2 pg (27-33); Mean Corpuscular Volume 85.6 fl (82-101); Mean Platelet Volume 8.6 fL (7.4-10.4); Monocytes % 9.5 %; Neutrophils # 5.95 10^3/uL (1.8-7.7); Neutrophils % 59.7 %; Nucleated Red Blood Cells % 0 %; Platelet Count 303 10^3/cmm (157-399); Red Blood Count 5.62 10^6/uL (3.85-5.65); Red Cell Distribution Width 12.8 % (12.1-15.1); White Blood Count 9.97 10^3/uL (3.29-11.43)
[2023-07-26] MEDS: ketorolac 30 mg/mL INJ IVP (11:38)
[2023-07-26 11:51] LABS: Alanine Aminotransferase 25 U/L (0-41); Albumin Level 4.6 g/dL (3.5-5.2); Alkaline Phosphatase 92 U/L (40-130); Anion Gap 17.4 (5-19); Aspartate Amino Transferase 20 U/L (0-40); Blood Urea Nitrogen 13 mg/dL (6-20); Calcium 9.4 mg/dL (8.5-10.5); Carbon Dioxide 23 mmol/L (22-29); Chloride 99 mmol/L (98-107); Creatinine Clr Calc Pharmacy 156.3259; Globulin 3.1 g/dL (1.3-4.6); Glomerular Filtration Rate 103.2 mL/min (90-130); Glucose 100 mg/dL (65-115); Osmolality Calculated 280 mOsm/kg (285-295); Potassium 4.4 mmol/L (3.5-5.1); Sodium 135 mmol/L (136-145); Total Bilirubin 0.5 mg/dL (0.15-1.2); Total Protein 7.7 g/dL (6.6-8.7)
[2023-07-26 11:55] VITALS: BP 142/100; PULSE 84; RESP 14; O2SAT 94
[2023-07-26 12:33] LABS: Troponin(5th) Baseline 9 ng/L (0-15)
[2023-07-26 12:51] VITALS: BP 133/79; PULSE 72; O2SAT 92
== END 2023-07-26 12:53 | disposition home or self-care (01) ==
PROVIDERS: Emergency Provider Emergency Medicine; PCP Family Medicine Adult Medicine
DX: R07.89 Other chest pain (principal); Z79.82 Long term (current) use of aspirin; J44.9 Chronic obstructive pulmonary disease, unspecified; F17.210 Nicotine dependence, cigarettes, uncomplicated
CPT/HCPCS: 71045; 80053; 84484; 85025; 93005; 96374; 99285; J1885

== ENCOUNTER 2023-07-27 07:09 | Outpatient (CLI) | payer MEDICAID, SELFPAY ==
--- NOTE | 2023-07-27 08:00 | CT_ITS ---
WS: [id number] CT chest wo con [id number] HISTORY: lung nodules, follow-up 3-month evaluation of RIGHT hilar lymph nodes. TECHNIQUE: Axial imaging performed through the thorax. Coronal and sagittal reformats are submitted. All CT scans at [facility] use at least one of these dose optimization techniques: automated exposure control; mA and/or kV adjustment per patient size (includes targeted exams where dose is mat ched to clinical indication); or iterative reconstruction. CONTRAST: None DLP: 659.12 mGy.cm COMPARISON: 04/22/2023 Lungs and central airway: Chronic emphysema. Lungs are hyperexpanded. Several noncalcified pulmonary nodules are identified these are predominantly within the RIGHT lung. Some of these are related to th e fissures. No increasing size or new nodules. Pleura: Normal. No pleural effusion. Heart and pericardium: Normal size heart with no pericardial effusion. Mediastinum and kiya: Previously described prominent hilar lymph nodes are still present but difficul t to evaluate on this noncontrast examination. Largest lymph node RIGHT suprahilar measures 1.8 cm. I t is difficult to determine if there is been any interval change without IV contrast. Vessels: Mild atherosclerosis aorta. No aneurysm. Normal size pulmonary artery. Chest wall and lower neck: Intercostal lipoma LEFT lower thorax. Upper abdomen: Mild hepatic steatosis. No adrenal mass. Osseous structures: Schmorl's node T11. No acute rib fracture. IMPRESSION: 1. Stable subcentimeter pulmonary nodules. Recommend follow-up chest CT in 12 months. 2. Hilar indeterminate lymph nodes are difficult to evaluate. This study was performed without IV co ntrast. Largest lymph node is RIGHT suprahilar 1.8 cm. Consider evaluation with postcontrast chest CT . 3. Chronic emphysema. 4. Hepatic steatosis.
== END 2023-07-27 07:10 | disposition home or self-care (01) ==
PROVIDERS: PCP Family Medicine Adult Medicine; Visit Provider Family Medicine Adult Medicine
DX: R91.8 Other nonspecific abnormal finding of lung field (principal); Z91.89 Other specified personal risk factors, not elsewhere classified; R59.0 Localized enlarged lymph nodes; J43.9 Emphysema, unspecified
CPT/HCPCS: 71250

== ENCOUNTER 2023-08-07 18:03 | Inpatient (IN) | payer MEDICAID, SELFPAY ==
[2023-08-07] VITALS (10 sets, daily range): BP systolic 121–141; BP diastolic 68–95; PULSE 84–131; RESP 18–30; TEMP 38.1; O2SAT 89–93
--- NOTE | 2023-08-07 18:06 | ECG_ITS ---
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 Measurements Intervals [place] Rate: 121 P: 50 FL: 152 QRS: 84 QRSD: 102 T: 70 QT: 280 QTc: 398 Interpretive Statements SINUS TACHYCARDIA INCOMPLETE RIGHT BUNDLE BRANCH BLOCK [90+ ms QRS DURATION, TERMINAL R IN V1/V2, 40+ ms S IN I/aVL/V4/V5/V6] ABNORMAL RHYTHM ECG Compared to ECG 07/26/2023 11:23:56 Incomplete right bundle-branch block now present Sinus rhythm no longer present Electronically Signed On 08-07-2023 22:51:51 CDT by Khanh Espinoza M.D. [id number]
--- NOTE | 2023-08-07 18:17 | XRR_ITS ---
PROCEDURE INFORMATION: Exam: XR Chest Exam date and time: 08/07/2023 6:43 PM Age: 48 years old Clinical indication: Patient HX: Dyspnea; Low o2; Copd; Emphysema TECHNIQUE: Imaging protocol: Radiologic exam of the chest. Views: 1 view. COMPARISON: CT chest [facility] [id number] 07/27/2023 7:25 AM FINDINGS: Lungs: Subtle irregular opacities in the left lung base laterally. Pleural spaces: Unremarkable. No pleural effusion. No pneumothorax. Heart/Mediastinum: Unremarkable. No cardiomegaly. Bones/joints: Unremarkable. XR/XR chest 1V portable [id number] IMPRESSION: Subtle irregular opacities in the left lung base laterally.
[2023-08-07] MEDS: ipratropium-albuterol 3 mL Neb INHALATION (18:42)
[2023-08-07 19:02] LABS: Basophils # 0.1 10^3/uL (0.0-0.1); Basophils % 0.5 %; Eosinophils # 0.2 10^3/uL (0.0-0.8); Eosinophils % 0.7 %; Hematocrit 45.9 % (37-53); Lymphocytes # 1.4 10^3/uL (0.8-4.8); Lymphocytes % 7.1 %; Mean Corpuscular HGB Conc 35.1 g/dL (30-55); Mean Corpuscular Hemoglobin 29.7 pg (27-33); Mean Corpuscular Volume 84.7 fl (82-101); Mean Platelet Volume 8.8 fL (7.4-10.4); Monocytes # 1.3 10^3/uL (0.2-0.9); Monocytes % 6.3 %; Neutrophils # 17.08 10^3/uL (1.8-7.7); Neutrophils % 84.5 %; Nucleated Red Blood Cells % 0 %; Platelet Count 290 10^3/cmm (157-399); Red Blood Count 5.42 10^6/uL (3.85-5.65); Red Cell Distribution Width 12.9 % (12.1-15.1); White Blood Count 20.22 10^3/uL (3.29-11.43)
[2023-08-07] MEDS: methylPREDNISolone sod succ 125 mg/2 mL INJ 60 MG IVP (19:07)
[2023-08-07] MEDS: acetaminophen 500 mg Tablet 1000 MG PO (19:07)
[2023-08-07 19:21] LABS: Lactic Sepsis W/Reflex 2.7 mmol/L (0.5-2.2)
[2023-08-07 19:22] LABS: Troponin(5th) Baseline 7 ng/L (0-15)
[2023-08-07 19:32] LABS: NT Pro B Type Natriuretic Pept < 36 pg/mL (0-125)
[2023-08-07 19:43] LABS: Influenza A by IFA negative (Negative); Influenza B by IFA negative (Negative); SARS Covid-2 Antigen negative (Negative)
[2023-08-07 19:43] LABS: Alanine Aminotransferase 24 U/L (0-41); Albumin Level 4.6 g/dL (3.5-5.2); Alkaline Phosphatase 91 U/L (40-130); Anion Gap 20.4 (5-19); Aspartate Amino Transferase 18 U/L (0-40); Blood Urea Nitrogen 16 mg/dL (6-20); Calcium 9.5 mg/dL (8.5-10.5); Carbon Dioxide 22 mmol/L (22-29); Chloride 98 mmol/L (98-107); Creatinine Clr Calc Pharmacy 140.2443; Globulin 2.7 g/dL (1.3-4.6); Glomerular Filtration Rate 90.1 mL/min (90-130); Glucose 105 mg/dL (65-115); Osmolality Calculated 284 mOsm/kg (285-295); Potassium 4.4 mmol/L (3.5-5.1); Sodium 136 mmol/L (136-145); Total Bilirubin 0.4 mg/dL (0.15-1.2); Total Protein 7.3 g/dL (6.6-8.7)
--- NOTE | 2023-08-07 20:17 | ECG_ITS ---
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 Measurements Intervals [place] Rate: 112 P: 45 IA: 132 QRS: 75 QRSD: 98 T: 58 QT: 293 QTc: 401 Interpretive Statements SINUS TACHYCARDIA POSSIBLE RIGHT VENTRICULAR CONDUCTION DELAY [RSR (QR) IN V1/V2] Compared to ECG 08/07/2023 18:06:11 Incomplete right bundle-branch block no longer present Electronically Signed On 08-07-2023 22:52:35 CDT by Khanh Espinoza M.D. [id number]
[2023-08-07 20:36] LABS: Troponin 5 2HR 8.57 ng/L (0-15); Troponin 5 2HR Delta 1.57 ABS# (0-10)
[2023-08-07 20:45] LABS: Reflex Lactate Order REFLEX LACTIC ORDERD
[2023-08-07 21:24] LABS: Lactic Acid level (Lactate) 2.8 mmol/L (0.5-2.2)
--- NOTE | 2023-08-07 21:30 | CTR_ITS ---
PROCEDURE INFORMATION: Exam: CTA Chest With Contrast Exam date and time: 08/07/2023 9:49 PM Age: 48 years old Clinical indication: Dyspnea and shortness of breath; Patient HX: SOB with dyspnea and hypoxia. History of copd. TECHNIQUE: Imaging protocol: Computed tomographic angiography of the chest with contrast. Exam focused on the arteries. 3D rendering (Not supervised by radiologist): MIP and/or 3D reconstructed images were created by the technologist. Radiation optimization: All CT scans at this facility use at least one of these dose optimization techniques: automated exposure control; mA and/or kV adjustment per patient size (includes targeted exams where dose is matched to clinical indication); or iterative reconstruction. Contrast material: OMNI 350; Contrast volume: 137 ml; Contrast route: INTRAVENOUS (IV); COMPARISON: CT angio chest [place] prot [id number] 04/22/2023 10:32 AM RADIATION DOSE METRICS: Total DLP (mGy-cm): 979.32 FINDINGS: Pulmonary arteries: Normal. No pulmonary emboli. Aorta: Unremarkable. No aortic aneurysm. No aortic dissection. Lungs: Subtle opacities in the left lung base. Pleural spaces: Unremarkable. No pneumothorax. No pleural effusion. Heart: Unremarkable. No cardiomegaly. No pericardial effusion. Lymph nodes: Unremarkable. No enlarged lymph nodes. Spleen: Multiple punctate calcifications in the spleen consistent with prior granulomatous infection. Bones/joints: Unremarkable. No acute fracture. Soft tissues: Unremarkable. CT/CT angio chest PE protcl [id number] IMPRESSION: 1. Subtle opacities in the left lung base. 2. No pulmonary embolus.
[2023-08-07] MEDS: iohexol 350 mg/mL 500 mL Btl (per mL) IV (21:49)
[2023-08-07] MEDS: levofloxacin-dextrose 5 % 750 MG/150 ML PREMIX 100 MG IV (22:00)
--- NOTE | 2023-08-07 22:39 | P.HP_ITS ---
Providers/Chief Complaint 2 Primary Care Provider: Tyrese Chacon MD Chief Complaint: SOB History of Present Illness Fred Orosco is a 48 year old male with history of COPD, uses oxygen 2 to 3 L on as-needed basis, follows up with Dr. Christy, has quit smoking April 2023, pulmonary nodule, as per Dr. Christy he wanted to do a PET scan to decide whether he will need bronchoscopy and biopsy of the nodule, patient has not received that order yet, presented with chief complaint of shortness of breath productive cough. Patient is stating that he is very upset that his PCP has not been able to prescribe him antibiotics at the right time he is not able to give him prescription for PET scan, he is also upset that Dr. Christy is leaving and he has no one to follow-up with. Patient stating that he has been noticing low-grade fever, productive cough mostly in the daytime light yellow to white, he has been getting short of breath, today he was hypoxic in low 80s that prompted his visit to the ER. He has not complained of any chest pain no nausea vomiting diarrhea. In the ER CT chest was done which showed left lung infiltrate He is septic criteria met with fever tachypnea tachycardia leukocytosis high lactic acid Patient is stating that he has felt significantly better after getting DuoNeb treatment He has history of SG does not have CPAP machine at home anymore because insurance stopped covering for the machine I will give him septic bolus at the time of admission He has received antibiotics Review of Systems 2 Const: Reports: fever(s), chills and change in weight Eyes: Denies: change in vision ENMT: Denies: throat pain Card: Denies: chest pain Resp: Reports: dyspnea and productive cough GI: Denies: abdominal pain : Denies: flank pain Musc: Denies: neck pain Skin/Breast: Denies: rash Neuro: Denies: headache(s) Psych: Reports: anxiety Endo: Reports: polyuria Medications/Allergies Home Medications Medication Instructions Recorded Confirmed Last Taken Type albuterol sulfate 1.25 mg/3 mL 1.25 mg (3 mL) inhalation QID PRN 05/08/23 07/30/23 Unknown Rx solution for nebulization shortness of breath or wheezing #180 mL guaifenesin 600 mg tablet, 600 mg PO Q12H PRN Congestion #60 06/23/23 07/30/23 Unknown Rx extended release 12 hr (Mucinex) tabs fluticasone propionate 220 1 puff inhalation BID #12 grams 07/01/23 07/30/23 Unknown Rx mcg/actuation HFA aerosol inhaler pantoprazole 40 mg tablet,delayed 40 mg PO DAILY PRN acid reflux #60 07/02/23 07/30/23 Unknown Rx release tabs albuterol sulfate 90 mcg/actuation 1 inh inhalation Q6H PRN shortness 07/10/23 07/30/23 07/26/23 Rx aerosol inhaler (Ventolin HFA) of breath or wheezing #8.5 grams tiotropium 2.5 mcg-olodaterol 2.5 2 puff inhalation DAILY 07/10/23 07/30/23 Unknown History mcg/actuation mist for inhalation (Stiolto Respimat) aspirin 81 mg tablet,delayed 81 mg PO DAILY 07/26/23 07/30/23 Unknown History release naproxen 500 mg tablet (Naprosyn) 500 mg PO BID PRN pain #20 tabs 07/26/23 07/30/23 Unknown Rx Allergies Allergy/AdvReac Type Severity Reaction Status Date / Time Penicillins Allergy Mild ALGY-Fever Verified 07/30/23 14:21 PFSH Acute 2 PFSH: Medical History Former heavy cigarette smoker (20-39 per day) Quit smoking 04/22/2023 Chronic GERD COPD (chronic obstructive pulmonary disease) Hilar lymphadenopathy Pulmonary nodule less than 1 cm in diameter with moderate to high risk for malignant neoplasm Surgical History No pertinent past surgical history Family History Father Heart disease Mother Heart disease Diabetes Gout Polio Other Cancer Social History Smoking and tobacco/nicotine status: current every day tobacco/nicotine user (2 - 21/2 packs per day) cigarettes Packs smoked per day: 2 Years cigarettes smoked: 32 [ Other cigarette details: Started at 15] Alcohol intake: former Vitals/I&O/Wt Last Vital Signs Temp 100.6 F H 08/07/23 18:09 Pulse 119 H 08/07/23 21:07 Resp 18 08/07/23 21:07 BP 121/68 08/07/23 21:07 Pulse Ox 91 08/07/23 21:07 O2 Del Method Nasal Cannula 08/07/23 21:07 O2 Flow Rate 4 08/07/23 21:07 Weight last 48 hrs Weight 120.202 kg Physical Exam 2 Narrative: Patient is awake and alert Left-sided crackles noted on lung auscultation Currently on 3 L GCS 15 I do not appreciate any wheezing S1, S2 tachycardia No active sign of heart failure Pleasant cooperative Nonfocal neuroexam GCS 15 Febrile Appears stated age Lower extremity no edema Data 08/07/23 18:35 08/07/23 18:35 Micro: Microbiology 08/07/23 18:40 Blood Culture - Preliminary Blood SPECIMEN COLLECTED 08/07/23 18:35 Blood Culture - Preliminary Blood SPECIMEN COLLECTED A&P Assessment and plan (1) Pulmonary nodule less than 1 cm in diameter with moderate to high risk for malignant neoplasm: (2) COPD (chronic obstructive pulmonary disease): Qualifiers: COPD type: emphysema Emphysema type: panlobular Qualified Code(s): J 43.1 - Panlobular emphysema (3) Community acquired pneumonia: Qualifiers: Laterality: left Lung location: lower lobe of lung Qualified Code(s): J18.9 - Pneumonia, unspecified organism (4) Hilar lymphadenopathy: (5) Sepsis: (6) Acute respiratory failure with hypoxia: Plan sepsis related to pneumonia criteria met with fever tachycardia high lactic acid tacyhpnea I will give him septic bolus He received antibiotics in the ER Repeat lactic acid Request urine culture, blood cultures No active signs of skin mottling or encephalopathy, no active wheezing Will put him on ceftriaxone and azithromycin CTA chest rule out PE tachycardia is in accordance with his fever acute COPD exacerbation related to pneumonia Currently requiring 4 L, at home he uses 3 to 4 L on as-needed basis Has quit smoking Pulmonary nodule: Patient is saying that Dr. Forrester wanted PET scan before deciding if he needs a biopsy PET scan has not been ordered yet He is upset that now Dr. Christy is leaving and there is no one to follow-up Will check A1c level, BNP, request echo, no active chest pain DVT prophylaxis: Lovenox Continue Mucinex I would avoid steroids at this point he is not wheezing Noticed mild crackles at base of left lung Attestations 2 Medical Necessity Statement*: More than 2 midnights anticipated Diagnoses Pulmonary nodule less than 1 cm in diameter with moderate to high risk for malignant neoplasm R91.1; Z91.89 Panlobular emphysema J43.1 COPD type: emphysema Emphysema type: panlobular Community acquired pneumonia J18.9 Laterality: left Lung location: lower lobe of lung Hilar lymphadenopathy R59.0 Sepsis A41.9 Acute respiratory failure with hypoxia J96.01
--- NOTE | 2023-08-07 23:01 | W.ED.SOB ---
HPI - SOB/Dyspnea General: Chief Complaint: Shortness of Breath/Dyspnea Stated Complaint: SOB Time Seen by Provider: 08/07/23 18:16 History of Present Illness: HPI Narrative: 48-year-old male presents emergency department with complaints of increased shortness of breath worsening throughout the day. He states he has been using 4 L of supplemental oxygen today and feels like he still cannot catch his breath. He states he checked his oxygen saturation at home and could not get it higher than 93%. He states he was diagnosed with COPD and has been seeing Dr. 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 He states that he is not very happy with his current primary care provider Dr. Chacon. He states that Dr. 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 Alves is leaving. The patient states that he is very upset about that statement and states that he was not going to go and see Dr. Chacon again. He states he is also had a subjective fever at home and feels like he is having a significantly harder time breathing and is also having a nonproductive cough. He states he is stopped smoking April 2023 and states that he was told that he was going get a PET scan and then a bronchoscopy and biopsy for concerns of a lung mass. He denies chest pain at present. He denies nausea or vomiting. He does endorse increased fatigue and malaise. Associated symptoms: Deny chest pain or palpitations Review of Systems General: Reports: 10 or more systems reviewed and unremarkable except in HPI and below Card: Denies: chest pain, palpitations or irregular heart rhythm Resp: Reports: dyspnea, non-productive cough and wheezing PFS ED PFSH: Medical History Former heavy cigarette smoker (20-39 per day) Quit smoking 04/22/2023 Chronic GERD COPD (chronic obstructive pulmonary disease) Hilar lymphadenopathy Pulmonary nodule less than 1 cm in diameter with moderate to high risk for malignant neoplasm Surgical History No pertinent past surgical history Family History Father Heart disease Mother Heart disease Diabetes Gout Polio Other Cancer Social History Smoking and tobacco/nicotine status: current every day tobacco/nicotine user (2 - 21/2 packs per day) cigarettes Packs smoked per day: 2 Years cigarettes smoked: 32 [ Other cigarette details: Started at 15] Alcohol intake: former Physical Exam Narrative: EXAM NARRATIVE: Constitutional: the patient appears well nourished and with normal development. Vital signs reviewed as documented. Febrile per vital signs HENMT: Normocephalic, atraumatic. External ears normal appearance without drainage. Nose without drainage, normal appearance. Mucus membranes moist. Neck is supple, No jugular venous distension, trachea is midline, no appreciable carotid bruits. No lymphadenopathy. No meningeal signs. Flexion, extension and lateral rotation is without pain. Eyes: Pupils are equal, round, reactive to light and accommodation. No scleral icterus. Extra-ocular movement are intact. Thorax is symmetrical and with equal rise and fall with respirations. Resp: Scattered expiratory wheezing noted, rhonchi to the left lower lobe. Increased work of breathing. Cardio: Sinus tachycardia. Positive S1, S2. No appreciable murmurs, rubs or gallops. GI: Abdominal exam reveals normal bowel sounds to all quadrants. No organomegaly. No obvious palpable masses noted. No hepatomegally appreciated. Soft, non-tender to palpation. Extremity: Extremities are non-edematous and both femoral and pedal pulses are 2+ and equal bilaterally. Moves all extremities well, sensation in all extremities. Neuro: Alert and oriented x4, person, place, time and situation. Cranial nerves II through XII are grossly intact, there is no focal neurological deficits that I can appreciate at present. Motor strength in the upper and lower extremities are equal and bilateral 5/5. Psych: Cooperative, calm, normal thought process, appropriate judgment. Skin: No lesions, rashes. No gross abnormalities noted. Back: Symmetrical, no obvious deformity, No CVA tenderness Course Vital Signs: Vital signs: Vital Signs Temperature 100.6 F H 08/07/23 18:09 Pulse Rate 119 H 08/07/23 21:07 Respiratory Rate 18 08/07/23 21:07 Blood Pressure 121/68 08/07/23 21:07 Pulse Oximetry 91 08/07/23 21:07 Oxygen Delivery Me thod Nasal Cannula 08/07/23 21:07 Oxygen Flow Rate 4 08/07/23 21:07 MDM - SOB/Dyspnea Medical Decision Making Physical exam completed and documented, I will obtain a CBC, CMP, blood cultures, procalcitonin and lactic acid, two-view chest x-ray and a urinalysis. Differential diagnosis includes community-acquired pneumonia, viral illness, acute exacerbation of chronic pulmonary disease. Laboratory evaluation shows elevated white blood cells at 20.2 and an elevated lactic acid at 2.8. I have provided the patient IV fluid rehydration as well as IV antibiotics and contacted the hospitalist for admission to the hospital. Medical Records I reviewed the patient's medical records. Lab Data I reviewed the patient's lab results. 08/07/23 18:35 08/07/23 18:35 Labs/Radiology: Radiology Impressions Chest X-Ray 08/07/23 18:17 IMPRESSION: Subtle irregular opacities in the left lung base laterally. Chest CTA 08/07/23 21:30 IMPRESSION: 1. Subtle opacities in the left lung base. 2. No pulmonary embolus. Laboratory Results WBC 20.22 10^3/uL (3.29-11.43) H 08/07/23 18:35 RBC 5.42 10^6/uL (3.85-5.65) 08/07/23 18:35 Hgb 16.10 g/dL (11.27-16.99) 08/07/23 18:35 Hct 45.9 % (37-53) 08/07/23 18:35 MCV 84.7 fl (82-101) 08/07/23 18:35 MCH 29.7 pg (27-33) 08/07/23 18:35 MCHC 35.1 g/dL (30-55) 08/07/23 18:35 RDW 12.9 % (12.1-15.1) 08/07/23 18:35 Plt Count 290 10^3/cmm (157-399) 08/07/23 18:35 MPV 8.8 fL (7.4-10.4) 08/07/23 18:35 Neut % (Auto) 84.5 % 08/07/23 18:35 Lymph % (Auto) 7.1 % 08/07/23 18:35 [place] % (Auto) 6.3 % 08/07/23 18:35 Eos % (Auto) 0.7 % 08/07/23 18:35 Baso % (Auto) 0.5 % 08/07/23 18:35 Neut # (Auto) 17.08 10^3/uL (1.8-7.7) H 08/07/23 18:35 Lymph # (Auto) 1.4 10^3/uL (0.8-4.8) 08/07/23 18:35 [place] # (Auto) 1.3 10^3/uL (0.2-0.9) H 08/07/23 18:35 Eos # (Auto) 0.2 10^3/uL (0.0-0.8) 08/07/23 18:35 Baso # (Auto) 0.1 10^3/uL (0.0-0.1) 08/07/23 18:35 Nucleated RBC % (auto) 0 % 08/07/23 18:35 Nucleated RBCs # 0.0 /100WBC 08/07/23 18:35 Sodium 136 mmol/L (136-145) 08/07/23 18:35 Potassium 4.4 mmol/L (3.5-5.1) 08/07/23 18:35 Chloride 98 mmol/L (98-107) 08/07/23 18:35 Carbon Dioxide 22 mmol/L (22-29) 08/07/23 18:35 Anion Gap 20.4 (5-19) H 08/07/23 18:35 BUN 16 mg/dL (6-20) 08/07/23 18:35 Creatinine 0.9 mg/dL (0.7-1.2) 08/07/23 18:35 GFR Calculation 90.1 mL/min (90-130) 08/07/23 18:35 Glucose 105 mg/dL (65-115) 08/07/23 18:35 Calculated Osmolality 284 mOsm/kg (285-295) L 08/07/23 18:35 Lactic Acid 2.7 mmol/L (0.5-2.2) H 08/07/23 18:35 Lactic Acid (Sepsis) 2.8 mmol/L (0.5-2.2) H 08/07/23 20:59 Calcium 9.5 mg/dL (8.5-10.5) 08/07/23 18:35 Total Bilirubin 0.4 mg/dL (0.15-1.2) 08/07/23 18:35 AST 18 U/L (0-40) 08/07/23 18:35 ALT 24 U/L (0-41) 08/07/23 18:35 Alkaline Phosphatase 91 U/L (40-130) 08/07/23 18:35 Troponin T Baseline 7 ng/L (0-15) 08/07/23 18:35 Troponin T 120 Minute 8.57 ng/L (0-15) 08/07/23 20:01 Delta Troponin T 1.57 ABS# (0-10) 08/07/23 20:01 NT-Pro-B Natriuret Pep < 36 pg/mL (0-125) 08/07/23 18:35 Total Protein 7.3 g/dL (6.6-8.7) 08/07/23 18:35 Albumin 4.6 g/dL (3.5-5.2) 08/07/23 18:35 Globulin 2.7 g/dL (1.3-4.6) 08/07/23 18:35 Procalcitonin 0.20 ng/mL (0-0.5) 08/07/23 18:35 Influenza Type A Ag negative (Negative) 08/07/23 19:10 Influenza Type B Ag negative (Negative) 08/07/23 19:10 SARS-CoV-2 Ag (Rapid) negative (Negative) 08/07/23 19:10 All radiology interpretation(s) finalized by discharge EKG Data EKG 1: Interpretation: Twelve-lead EKG obtained at 180 and reviewed at 1809 demonstrates sinus tachycardia with a right bundle branch block, trickle rate 121, GA interval 152 QRS duration 102, QT 280 QTc [address] elevation or depression to demonstrate acute ischemia or infarction at present. EKG 2: Interpretation: Twelve-lead EKG obtained at 2022 reviewed at 2024 demonstrates sinus tachycardia ventricular rate 112, GA interval 132, QRS duration 98, QT 293, QTc [address] elevation or depression to demonstrate acute ischemia or infarction at present. Discharge Plan Discharge Patient Disposition: Admitted As Inpatient Clinical Impression: COPD (chronic obstructive pulmonary disease), Community acquired pneumonia Condition: Stable Prescriptions: No Action Stiolto Respimat 2.5-2.5 mcg/actuation mist 2 puff inhalation DAILY albuterol sulfate [Ventolin HFA] 90 mcg/actuation HFA aerosol inhaler 1 inh inhalation Q6H PRN (Reason: shortness of breath or wheezing) Qty: 8.5 3RF pantoprazole 40 mg tablet,delayed release (DR/EC) 40 mg PO DAILY PRN (Reason: acid reflux) Qty: 60 1RF albuterol sulfate 1.25 mg/3 mL solution for nebulization 1.25 mg inhalation QID PRN (Reason: shortness of breath or wheezing) Qty: 180 1RF guaifenesin [Mucinex] 600 mg tablet extended release 12hr 600 mg PO Q12H PRN (Reason: Congestion) Qty: 60 1RF fluticasone propionate 220 mcg/actuation HFA aerosol inhaler 1 puff inhalation BID Qty: 12 3RF Aspir-81 81 mg Tablet,Delayed Release (Dr/Ec) 81 mg PO DAILY Naprosyn 500 mg tablet 500 mg PO BID PRN (Reason: pain) Qty: 20 0RF Referrals: Tyrese Chacon MD [Primary Care Provider] - Coding Level of Care Code ED Hazardous Waste Management Specialist for [facility]
[2023-08-08] VITALS (13 sets, daily range): BP systolic 115–171; BP diastolic 67–88; PULSE 90–107; RESP 17–22; TEMP 36.3–36.9; O2SAT 90–94; BMI 33.5
[2023-08-08 00:03] LABS: Estmated Average Glucose 111; Hemoglobin A1C 5.5 % (4.0-6.0)
[2023-08-08] MEDS: lactated ringers 1,000 ML 999 ML IV ×2 (00:25→01:24)
[2023-08-08] MEDS: enoxaparin 40 mg/0.4 mL Syringe SUBCUT ×2 (00:31→22:56)
[2023-08-08 00:35] LABS: Thyroid Stimulating Hormone 0.61 uIU/mL (0.27-4.20)
[2023-08-08 00:45] LABS: Basophils # 0.1 10^3/uL (0.0-0.1); Basophils % 0.3 %; Hematocrit 44.7 % (37-53); Lymphocytes # 1.3 10^3/uL (0.8-4.8); Lymphocytes % 5.6 %; Mean Corpuscular HGB Conc 35.6 g/dL (30-55); Mean Corpuscular Hemoglobin 30.2 pg (27-33); Mean Corpuscular Volume 84.8 fl (82-101); Mean Platelet Volume 8.7 fL (7.4-10.4); Monocytes # 0.6 10^3/uL (0.2-0.9); Monocytes % 2.6 %; Neutrophils # 20.87 10^3/uL (1.8-7.7); Neutrophils % 90.2 %; Nucleated Red Blood Cells % 0 %; Platelet Count 283 10^3/cmm (157-399); Red Blood Count 5.27 10^6/uL (3.85-5.65); White Blood Count 23.13 10^3/uL (3.29-11.43)
[2023-08-08 00:46] LABS: Adenovirus Not Detected (NOT DETECT); Chlamydia Pneumoniae Not Detected (NOT DETECT); Coronavirus 229E,HKU1,NL63,OC4 Not Detected (NOT DETECT); Human Metapneumovirus Not Detected (NOT DETECT); Human Rhinovirus/Enterovirus Not Detected (NOT DETECT); Influenza A Not Detected (NOT DETECT); Influenza A H1 Not Detected (NOT DETECT); Influenza A H1-2009 Not Detected (NOT DETECT); Influenza A H3 Not Detected (NOT DETECT); Influenza B Not Detected (NOT DETECT); Mycoplasma Pneumoniae Not Detected (NOT DETECT); Parainfluenza Virus Type 1 Not Detected (NOT DETECT); Parainfluenza Virus Type 2 Not Detected (NOT DETECT); Parainfluenza Virus Type 3 Not Detected (NOT DETECT); Parainfluenza Virus Type 4 Not Detected (NOT DETECT); Respiratory Syncytial Virus A Not Detected (NOT DETECT); Respiratory Syncytial Virus B Not Detected (NOT DETECT); SARS-COV-2 Not Detected (NOT DETECT)
[2023-08-08 01:02] LABS: Anion Gap 19.6 (5-19); Blood Urea Nitrogen 18 mg/dL (6-20); C Reactive Protein 37.4 mg/L (0.0-4.9); Calcium 9.2 mg/dL (8.5-10.5); Carbon Dioxide 22 mmol/L (22-29); Chloride 97 mmol/L (98-107); Creatinine Clr Calc Pharmacy 115.3778; Glomerular Filtration Rate 71.4 mL/min (90-130); Glucose 210 mg/dL (65-115); Osmolality Calculated 286 mOsm/kg (285-295); Potassium 4.6 mmol/L (3.5-5.1); Sodium 134 mmol/L (136-145)
[2023-08-08 01:03] LABS: Lactic Sepsis W/Reflex 3.8 mmol/L (0.5-2.2)
[2023-08-08 01:05] LABS: Troponin 5 6HR 7.02 ng/L (0-15); Troponin 5 6HR Delta 0.02 ng/L (0-12)
[2023-08-08 01:13] LABS: NT Pro B Type Natriuretic Pept < 36 pg/mL (0-125); Procalcitonin 0.62 ng/mL (0-0.5)
[2023-08-08 02:26] LABS: Reflex Lactate Order REFLEX LACTIC ORDERD
[2023-08-08 03:58] LABS: Lactic Acid level (Lactate) 2.7 mmol/L (0.5-2.2)
[2023-08-08] MEDS: azithromycin 250 mg Tablet 500 MG PO (09:00)
[2023-08-08] MEDS: sennosides-docusate Tablet 1 TAB PO (09:00)
[2023-08-08] MEDS: aspirin 81 mg EC Tablet PO (09:00)
[2023-08-08] MEDS: cefTRIAXone 1,000 MG in sodium chloride 0.9% (plus) 50 ML 100 MG IV (09:00)
[2023-08-08] MEDS: methylPREDNISolone sod succ 40 mg/mL INJ IVP ×2 (09:38→16:54)
[2023-08-08] MEDS: TRAMadol 50 mg Tablet 25 MG PO (11:09)
--- NOTE | 2023-08-08 13:18 | P.PN_ITS ---
Subjective 2 Subjective: Patient was seen this morning, sitting up at the side of bed, reports productive cough no fevers, no chills Vitals/I&O/Wt Last Vital Signs Temp 97.5 F L 08/08/23 08:00 Pulse 105 H 08/08/23 08:58 Resp 18 08/08/23 08:58 BP 144/84 08/08/23 08:00 Pulse Ox 94 08/08/23 08:58 O2 Del Method Nasal Cannula 08/08/23 08:58 O2 Flow Rate 2 08/08/23 08:58 08/07/23 08/08/23 08/08/23 22:59 06:59 14:59 Intake Total 2632.35 / 2632.35 50 / 50 Balance 2632.35 / 2632.35 50 / 50 Weight last 48 hrs Weight 121.563 kg Weight 121.563 kg Weight 120.202 kg Physical Exam 2 Const: COMMON NORMALS: no acute distress and patient oriented x3 Resp: COMMON NORMALS: normal respiratory effort, No retractions and No use of accessory muscles AUSCULTATION: wheezes Cardio: COMMON NORMALS: regular rate, regular rhythm, S1 normal heart sound present and S2 normal heart sound present RATE: regular rate RHYTHM: r egular rhythm HEART SOUNDS: S1 normal heart sound present and S2 normal heart sound present GI: COMMON NORMALS: Normal to inspection, nondistended, normoactive bowel sounds present and non-tender Extremity: COMMON NORMALS: no pedal edema Neuro: COMMON NORMALS: patient oriented x3 Psych: COMMON NORMALS: mental status grossly normal Data 08/08/23 00:30 08/08/23 00:30 Micro: Microbiology 08/08/23 00:24 Gram Stain - Final Sputum - Expectorated Sputum 08/07/23 18:40 Blood Culture - Preliminary Blood SPECIMEN COLLECTED 08/07/23 18:35 Blood Culture - Preliminary Blood SPECIMEN COLLECTED A&P Assessment and plan (1) Pulmonary nodule less than 1 cm in diameter with moderate to high risk for malignant neoplasm: (2) COPD (chronic obstructive pulmonary disease): Qualifiers: COPD type: emphysema Emphysema type: panlobular Qualified Code(s): J 43.1 - Panlobular emphysema (3) Community acquired pneumonia: Qualifiers: Laterality: left Lung location: lower lobe of lung Qualified Code(s): J18.9 - Pneumonia, unspecified organism (4) Hilar lymphadenopathy: (5) Sepsis: (6) Acute respiratory failure with hypoxia: Plan sepsis related to pneumonia criteria met with fever tachycardia high lactic acid tacyhpnea Status post septic bolus He received antibiotics in the ER Repeat lactic acid Request urine culture, blood cultures No active signs of skin mottling or encephalopathy, no active wheezing Continue ceftriaxone and azithromycin CTA chest rule out PE tachycardia is in accordance with his fever acute COPD exacerbation Currently requiring 4 L, at home he uses 3 to 4 L on as-needed basis Has quit smoking Solu-Medrol 40 mg IV push every 8 hours Pulmonary nodule: Patient is saying that Dr. head wanted PET scan before deciding if he needs a biopsy PET scan has not been ordered yet He is upset that now Dr. Head is leaving and there is no one to follow-up Will check A1c level, BNP, request echo, no active chest pain DVT prophylaxis: Lovenox Continue Mucinex I would avoid steroids at this point he is not wheezing Noticed mild crackles at base of left lung Attestations 2 Medical Necessity Statement*: Patient requires hospitalization for sepsis secondary pneumonia, acute COPD exacerbation, pneumonia, Diagnoses Pulmonary nodule less than 1 cm in diameter with moderate to high risk for malignant neoplasm R91.1; Z91.89 Panlobular emphysema J43.1 COPD type: emphysema Emphysema type: panlobular Community acquired pneumonia J18.9 Laterality: left Lung location: lower lobe of lung Hilar lymphadenopathy R59.0 Sepsis A41.9 Acute respiratory failure with hypoxia J96.01
[2023-08-08] MEDS: ipratropium-albuterol 3 mL Neb INHALATION ×2 (13:35→20:07)
[2023-08-08] MEDS: lanolin oint 7 gm 1 APPLIC TOPICAL (15:29)
[2023-08-09] VITALS (15 sets, daily range): BP systolic 130–193; BP diastolic 64–84; PULSE 87–105; RESP 16–20; TEMP 36.3–36.6; O2SAT 90–93
[2023-08-09] MEDS: methylPREDNISolone sod succ 40 mg/mL INJ IVP ×2 (01:51→09:57)
[2023-08-09 02:44] LABS: Basophils % 0.2 %; Hematocrit 43.9 % (37-53); Lymphocytes # 1.6 10^3/uL (0.8-4.8); Lymphocytes % 6.3 %; Mean Corpuscular HGB Conc 33.7 g/dL (30-55); Mean Corpuscular Hemoglobin 29.6 pg (27-33); Mean Corpuscular Volume 87.8 fl (82-101); Mean Platelet Volume 9.2 fL (7.4-10.4); Monocytes # 1.6 10^3/uL (0.2-0.9); Monocytes % 6.1 %; Nucleated Red Blood Cells % 0 %; Platelet Count 319 10^3/cmm (157-399); Red Cell Distribution Width 13.2 % (12.1-15.1); White Blood Count 25.92 10^3/uL (3.29-11.43)
[2023-08-09 03:09] LABS: C Reactive Protein 48.5 mg/L (0.0-4.9)
[2023-08-09 03:14] LABS: Anion Gap 16.1 (5-19); Blood Urea Nitrogen 21 mg/dL (6-20); Calcium 9.4 mg/dL (8.5-10.5); Carbon Dioxide 23 mmol/L (22-29); Chloride 104 mmol/L (98-107); Creatinine Clr Calc Pharmacy 158.6444; Glomerular Filtration Rate 103.2 mL/min (90-130); Glucose 245 mg/dL (65-115); Osmolality Calculated 297 mOsm/kg (285-295); Potassium 5.1 mmol/L (3.5-5.1); Sodium 138 mmol/L (136-145)
[2023-08-09 03:15] LABS: Procalcitonin 0.45 ng/mL (0-0.5)
[2023-08-09] MEDS: ipratropium-albuterol 3 mL Neb INHALATION ×4 (08:14→20:30)
[2023-08-09] MEDS: aspirin 81 mg EC Tablet PO (08:51)
[2023-08-09] MEDS: azithromycin 250 mg Tablet 500 MG PO (08:51)
[2023-08-09] MEDS: sennosides-docusate Tablet 1 TAB PO (08:51)
[2023-08-09] MEDS: cefTRIAXone 1,000 MG in sodium chloride 0.9% (plus) 50 ML 100 MG IV (08:52)
[2023-08-09] MEDS: TRAMadol 50 mg Tablet 25 MG PO ×2 (08:56→20:47)
--- NOTE | 2023-08-09 12:19 | P.PN_ITS ---
Subjective 2 Subjective: Patient was seen this morning, denies any fevers, no chills, does report a productive cough Vitals/I&O/Wt Last Vital Signs Temp 97.7 F 08/09/23 07:42 Pulse 92 08/09/23 11:26 Resp 18 08/09/23 11:18 BP 158/84 08/09/23 07:42 Pulse Ox 90 08/09/23 11:18 O2 Del Method Room Air 08/09/23 11:18 O2 Flow Rate 3 08/09/23 08:00 08/08/23 08/09/23 08/09/23 22:59 06:59 14:59 Intake Total 240 / 290 200 / 490 290 / 290 Balance 240 / 290 200 / 490 290 / 290 Weight last 48 hrs Weight 119.476 kg Weight 121.563 kg Weight 121.563 kg Weight 120.202 kg Physical Exam 2 Const: COMMON NORMALS: no acute distress and patient oriented x3 Resp: COMMON NORMALS: normal respiratory effort, No retractions and No use of accessory muscles AUSCULTATION: crackles Cardio: COMMON NORMALS: regular rate, regular rhythm, S1 normal heart sound present and S2 normal heart sound present RATE: regular rate RHYTHM: r egular rhythm HEART SOUNDS: S1 normal heart sound present and S2 normal heart sound present GI: COMMON NORMALS: Normal to inspection, nondistended, normoactive bowel sounds present and non-tender Extremity: COMMON NORMALS: no pedal edema Neuro: COMMON NORMALS: patient oriented x3 Data 08/09/23 02:15 08/09/23 02:15 Micro: Microbiology 08/08/23 00:24 Gram Stain - Final Sputum - Expectorated Sputum Sputum Culture - Preliminary 08/07/23 18:40 Blood Culture - Preliminary Blood NEGATIVE TO DATE 08/07/23 18:35 Blood Culture - Preliminary Blood NEGATIVE TO DATE A&P Assessment and plan (1) Pulmonary nodule less than 1 cm in diameter with moderate to high risk for malignant neoplasm: (2) COPD (chronic obstructive pulmonary disease): Qualifiers: COPD type: emphysema Emphysema type: panlobular Qualified Code(s): J 43.1 - Panlobular emphysema (3) Community acquired pneumonia: Qualifiers: Laterality: left Lung location: lower lobe of lung Qualified Code(s): J18.9 - Pneumonia, unspecified organism (4) Hilar lymphadenopathy: (5) Sepsis: (6) Acute respiratory failure with hypoxia: Plan sepsis related to pneumonia criteria met with fever tachycardia high lactic acid tacyhpnea Status post septic bolus He received antibiotics in the ER Repeat lactic acid Request urine culture, blood cultures No active signs of skin mottling or encephalopathy, no active wheezing Continue ceftriaxone and azithromycin CTA chest rule out PE tachycardia is in accordance with his fever acute COPD exacerbation Currently requiring 4 L, at home he uses 3 to 4 L on as-needed basis Has quit smoking Solu-Medrol 40 mg IV push every 8 hours Pulmonary nodule: Patient is saying that Dr. head wanted PET scan before deciding if he needs a biopsy PET scan has not been ordered yet He is upset that now Dr. Head is leaving and there is no one to follow-up DVT prophylaxis: Lovenox Continue Mucinex I would avoid steroids at this point he is not wheezing Noticed mild crackles at base of left lung Plan for today de-escalate steroids, continue IV antibiotics, monitor for another 24 hours Attestations 2 Medical Necessity Statement*: Patient requires hospitalization for pneumonia, COPD exacerbation Diagnoses Pulmonary nodule less than 1 cm in diameter with moderate to high risk for malignant neoplasm R91.1; Z91.89 Panlobular emphysema J43.1 COPD type: emphysema Emphysema type: panlobular Community acquired pneumonia J18.9 Laterality: left Lung location: lower lobe of lung Hilar lymphadenopathy R59.0 Sepsis A41.9 Acute respiratory failure with hypoxia J96.01
[2023-08-09 16:29] LABS: Glucose Point of Care 346 mg/dL (70-110)
[2023-08-09] MEDS: insulin lispro 100 unit/1 mL SUBCUT ×2 (17:26→20:54)
[2023-08-09 20:52] LABS: Glucose Point of Care 230 mg/dL (70-110)
[2023-08-09] MEDS: enoxaparin 40 mg/0.4 mL Syringe SUBCUT (22:44)
[2023-08-10] VITALS (7 sets, daily range): BP systolic 128–149; BP diastolic 79–87; PULSE 72–106; RESP 18–20; TEMP 36.1–36.7; O2SAT 88–94; BMI 33.5
[2023-08-10 02:57] LABS: Basophils # 0.1 10^3/uL (0.0-0.1); Basophils % 0.4 %; Eosinophils % 0.1 %; Hematocrit 42.2 % (37-53); Lymphocytes # 2.8 10^3/uL (0.8-4.8); Lymphocytes % 13.3 %; Mean Corpuscular HGB Conc 33.9 g/dL (30-55); Mean Corpuscular Hemoglobin 29.9 pg (27-33); Mean Corpuscular Volume 88.1 fl (82-101); Mean Platelet Volume 9.5 fL (7.4-10.4); Monocytes # 1.4 10^3/uL (0.2-0.9); Monocytes % 6.7 %; Neutrophils # 16.24 10^3/uL (1.8-7.7); Neutrophils % 77.2 %; Nucleated Red Blood Cells % 0 %; Platelet Count 299 10^3/cmm (157-399); Red Blood Count 4.79 10^6/uL (3.85-5.65); Red Cell Distribution Width 13.1 % (12.1-15.1); White Blood Count 21.06 10^3/uL (3.29-11.43)
[2023-08-10 03:18] LABS: Blood Urea Nitrogen 19 mg/dL (6-20); Calcium 9.1 mg/dL (8.5-10.5); Carbon Dioxide 25 mmol/L (22-29); Chloride 106 mmol/L (98-107); Creatinine Clr Calc Pharmacy 157.3111; Glomerular Filtration Rate 103.2 mL/min (90-130); Glucose 151 mg/dL (65-115); Osmolality Calculated 297 mOsm/kg (285-295); Sodium 141 mmol/L (136-145)
[2023-08-10 03:20] LABS: Procalcitonin 0.29 ng/mL (0-0.5)
[2023-08-10 03:21] LABS: C Reactive Protein 12.5 mg/L (0.0-4.9)
[2023-08-10 06:34] LABS: Glucose Point of Care 139 mg/dL (70-110)
[2023-08-10] MEDS: ipratropium-albuterol 3 mL Neb INHALATION (07:57)
--- NOTE | 2023-08-10 08:00 | FL_ITS ---
WS: [id number] EXAMINATION: FL barium swallow modifd [id number] ORDER DATE: 08/10/2023 10:35 AM REASON FOR EXAM: Oropharyngeal dysphagia COMPARISON: None available. FLUOROSCOPY TIME: 1min [id number] # OF SPOT FILMS: 7 video runs FINDINGS: There is good oral motor control. The swallowing mechanism is intact. There is no penetration. There is no aspiration IMPRESSION: No penetration or aspiration was identified Please see full report from speech pathology.
[2023-08-10] MEDS: aspirin 81 mg EC Tablet PO (08:44)
[2023-08-10] MEDS: predniSONE 20 mg Tablet 40 MG PO (08:44)
[2023-08-10] MEDS: sennosides-docusate Tablet 1 TAB PO (08:45)
[2023-08-10] MEDS: azithromycin 250 mg Tablet 500 MG PO (08:45)
[2023-08-10] MEDS: cefTRIAXone 1,000 MG in sodium chloride 0.9% (plus) 50 ML 100 MG IV (08:46)
--- NOTE | 2023-08-10 09:38 | PC.CHAP ---
Pastoral Care Encounter/Spiritual Assessment Type of Contact [] Declined wood room hand visit [] Patient/Family/Request visit [] Outpatient visit [] Follow-up visit [] Physician referral [] Code/Alert [x] Routine visit [] Staff referral [] Actively dying [] Patient sleeping [] Family support [] [] Out of room [] Palliative care [] [] Receiving care in room [] Pre-surgical visit [] Trauma [] Long length of stay [] ICU visit [] Other: Relational/Emotional Strength [] Patient feels connected with others/family/visitors/staff [] Distress [] Loneliness/isolation [] Abandonment Spirituality of Patient [x] Person of Mariella [] Attends Sikh of their Mariella [x] Believes in Prayer [] Reads Bible or Hinduism materials [] There are Spiritual issues to be addressed Student Life Dean Interventions [x] Prayer [x] Active listening [] Non-anxious presence [] Spiritual/emotional support [] Crisis/trauma care [] Spiritual counseling [] Bereavement support [] Provided bereavement packet [x] Provided Bible/devotional materials [] Provided toy/stuffed animal, coloring book to patient or family member [] Provided Communion [] Anointing/[place] [] Salvation [x] Completed spiritual assessment [] Other: Impact on Illness or Injury [] Angry [] Fearful [] Anxious [] Often cries [] Exhaustion [] Unable to work [] Unable to attend uatsdin [] Unable to walk/stand [] Unable to read [] Unable to drive [] Unable to eat/drink [] Unable to sleep [] Unable to be with family [] Patient intubated [] Other: Summary Time spent with patient 10min
--- NOTE | 2023-08-10 10:39 | P.DS_ITS ---
Discharge Providers Date of Admission: 08/07/23 22:45 Date of Discharge: August 10, 2023 Attending Provider at Admission: Nilesh Mckeon MD Attending Provider at Discharge: Eugene Herrera DO Primary Care Provider: Tyrese Chacon MD Diagnoses at Discharge Discharge Diagnosis (1) Community acquired pneumonia: Status: Acute Qualifiers: Laterality: left Lung location: lower lobe of lung Qualified Code(s): J18.9 - Pneumonia, unspecified organism (2) COPD (chronic obstructive pulmonary disease): Status: Acute Qualifiers: COPD type: emphysema Emphysema type: panlobular Qualified Code(s): J43.1 - Panlobular emphysema (3) Hilar lymphadenopathy: Details from hospital stay: Repeat CAT scan with contrast dye is negative for concern this is most likely reactive. Status: Acute (4) Pulmonary nodule less than 1 cm in diameter with moderate to high risk for malignant neoplasm: Details from hospital stay: No change in CT comparison follow-up as needed Status: Acute (5) Sepsis: Status: Acute Qualifiers: Acute respiratory failure type: with hypoxia Sepsis acute organ dysfunction status: with acute organ dysfunction Sepsis type: sepsis due to unspecified organism Severe sepsis acute organ dysfunction type: acute respiratory failure Severe sepsis shock status: without septic shock Qualified Code(s): A41.9 - Sepsis, unspecified organism; R65.20 - Severe sepsis without septic shock; J96.01 - Acute respiratory failure with hypoxia (6) Acute respiratory failure with hypoxia: Status: Resolved Reason for Visit Reason for Visit: SOB Hospital Course Hospital Course Patient is a 48-year-old male with almost [id number]-[id number] smoking history who quit April 2023. He uses 2 to 3 L of oxygen as needed he has a few pulmonary nodules less than 1 cm as well as hilar adenopathy. He presented with incre asing shortness of breath low-grade fever and productive cough. He was hypoxic in the low 80s which prompted the visit to the emergency room. In the ED he was found to have a left lung infiltrate he met septic criteria with a fever tachypnea tachycardia leukocytosis and a high lactic acid. There was no growth on his blood cultures and sputum culture was normal casey he was treated expectantly with Rocephin and Zithromax. He was started on steroids and showed significant improvement On the day of discharge he was off oxygen had no wheezes was at his baseline. I spoke with Dr. Bonner since patient was adamant that he needed a PET scan and bronchoscopy to see if patient can have an earlier follow-up. However after review of the chart with Dr. Christy it is determined that the lymph nodes are reactive and there was no increased attenuation with contrast and the small subcentimeters lymph nodes are unchanged. There is no need for further follow- up with pulmonary. Physical Exam Narrative: Alert oriented. NAD. Heart: Regular normal S1-S2 without murmurs clicks gallops or rubs Lungs: Diminished breath sounds throughout poor expiratory phase. No wheezes or rales auscultated Abdomen: Obese soft nontender nondistended positive bowel sounds Extremities: Mild +1 edema at the ankles Discharge Data Studies Completed and Pending Completed Studies During Hospitalization Category Date Time Status CTA chest [CT angio chest PE protcl [id number]] Stat Cat Scan 08/07/23 21:30 Completed XR chest 1V portable [id number] Stat Exams 08/07/23 18:17 Completed Pending at discharge Category Date Time Status FL barium swallow modifd [id number] Routine Exams 08/10/23 08:00 Ordered Basic Metabolic Panel AM LABS Lab 08/11/23 04:00 Ordered Blood Culture Stat Lab 08/07/23 18:40 Results C Reactive Protein AM LABS Lab 08/11/23 04:00 Ordered Complete Blood Count w/Auto AM LABS Lab 08/11/23 04:00 Ordered Procalcitonin AM LABS Lab 08/11/23 04:00 Ordered Sputum Culture and Gram Stain Stat Lab 08/07/23 22:47 Results Radiology Impressions Chest X-Ray 08/07/23 18:17 IMPRESSION: Subtle irregular opacities in the left lung base laterally. Chest CTA 08/07/23 21:30 IMPRESSION: 1. Subtle opacities in the left lung base. 2. No pulmonary embolus. Laboratory Results WBC 21.06 10^3/uL (3.29-11.43) H 08/10/23 02:25 RBC 4.79 10^6/uL (3.85-5.65) 08/10/23 02:25 Hgb 14.30 g/dL (11.27-16.99) 08/10/23 02:25 Hct 42.2 % (37-53) 08/10/23 02:25 MCV 88.1 fl (82-101) 08/10/23 02:25 MCH 29.9 pg (27-33) 08/10/23 02:25 MCHC 33.9 g/dL (30-55) 08/10/23 02:25 RDW 13.1 % (12.1-15.1) 08/10/23 02:25 Plt Count 299 10^3/cmm (157-399) 08/10/23 02:25 MPV 9.5 fL (7.4-10.4) 08/10/23 02:25 Neut % (Auto) 77.2 % 08/10/23 02:25 Lymph % (Auto) 13.3 % 08/10/23 02:25 [place] % (Auto) 6.7 % 08/10/23 02:25 Eos % (Auto) 0.1 % 08/10/23 02:25 Baso % (Auto) 0.4 % 08/10/23 02:25 Neut # (Auto) 16.24 10^3/uL (1.8-7.7) H 08/10/23 02:25 Lymph # (Auto) 2.8 10^3/uL (0.8-4.8) 08/10/23 02:25 [place] # (Auto) 1.4 10^3/uL (0.2-0.9) H 08/10/23 02:25 Eos # (Auto) 0.0 10^3/uL (0.0-0.8) 08/10/23 02:25 Baso # (Auto) 0.1 10^3/uL (0.0-0.1) 08/10/23 02:25 Nucleated RBC % (auto) 0 % 08/10/23 02:25 Nucleated RBCs # 0.0 /100WBC 08/10/23 02:25 Sodium 141 mmol/L (136-145) 08/10/23 02:25 Potassium 4.0 mmol/L (3.5-5.1) 08/10/23 02:25 Chloride 106 mmol/L (98-107) 08/10/23 02:25 Carbon Dioxide 25 mmol/L (22-29) 08/10/23 02:25 Anion Gap 14.0 (5-19) 08/10/23 02:25 BUN 19 mg/dL (6-20) 08/10/23 02:25 Creatinine 0.8 mg/dL (0.7-1.2) 08/10/23 02:25 GFR Calculation 103.2 mL/min (90-130) 08/10/23 02:25 Glucose 151 mg/dL (65-115) H 08/10/23 02:25 POC Glucose 139 mg/dL (70-110) H 08/10/23 06:31 Estimat Average Glucose 111 08/07/23 18:35 Hemoglobin A1c 5.5 % (4.0-6.0) 08/07/23 18:35 Calculated Osmolality 297 mOsm/kg (285-295) H 08/10/23 02:25 Lactic Acid 3.8 mmol/L (0.5-2.2) H 08/08/23 00:30 Lactic Acid (Sepsis) 2.7 mmol/L (0.5-2.2) H 08/08/23 03:33 Calcium 9.1 mg/dL (8.5-10.5) 08/10/23 02:25 Phosphorus 4.0 mg/dL (2.5-4.5) 08/08/23 00:30 Magnesium 2.0 mg/dL (1.7-2.3) 08/08/23 00:30 Total Bilirubin 0.4 mg/dL (0.15-1.2) 08/07/23 18:35 AST 18 U/L (0-40) 08/07/23 18:35 ALT 24 U/L (0-41) 08/07/23 18:35 Alkaline Phosphatase 91 U/L (40-130) 08/07/23 18:35 Troponin T Baseline 7 ng/L (0-15) 08/07/23 18:35 Troponin T 120 Minute 8.57 ng/L (0-15) 08/07/23 20:01 Delta Troponin T 1.57 ABS# (0-10) 08/07/23 20:01 Troponin T Hi Sens 6Hr 7.02 ng/L (0-15) 08/08/23 00:30 Troponin T Hi Sens 6Hr Delta 0.02 ng/L (0-12) 08/08/23 00:30 C-Reactive Protein 12.5 mg/L (0.0-4.9) H 08/10/23 02:25 NT-Pro-B Natriuret Pep < 36 pg/mL (0-125) 08/08/23 00:30 Total Protein 7.3 g/dL (6.6-8.7) 08/07/23 18:35 Albumin 4.6 g/dL (3.5-5.2) 08/07/23 18:35 Globulin 2.7 g/dL (1.3-4.6) 08/07/23 18:35 Procalcitonin 0.29 ng/mL (0-0.5) 08/10/23 02:25 TSH 0.61 uIU/mL (0.27-4.20) 08/07/23 20:01 Adenovirus (PCR) Not detected (NOT DETECT) 08/07/23 22:54 C. pneumoniae DNA (PCR) Not detected (NOT DETECT) 08/07/23 22:54 Coronavirus 229E (PCR) Not detected (NOT DETECT) 08/07/23 22:54 Human Metapneumovir PCR Not detected (NOT DETECT) 08/07/23 22:54 Influenza A (H1) PCR Not detected (NOT DETECT) 08/07/23 22:54 Influ A (H1/09) PCR Not detected (NOT DETECT) 08/07/23 22:54 Influenza A (H3) PCR Not detected (NOT DETECT) 08/07/23 22:54 Influenza Type A Ag negative (Negative) 08/07/23 19:10 Influenza Type A (PCR) Not detected (NOT DETECT) 08/07/23 22:54 Influenza Type B Ag negative (Negative) 08/07/23 19:10 Influenza Type B (PCR) Not detected (NOT DETECT) 08/07/23 22:54 M. pneumoniae (PCR) Not detected (NOT DETECT) 08/07/23 22:54 Parainfluenza 1 (PCR) Not detected (NOT DETECT) 08/07/23 22:54 Parainfluenza 2 (PCR) Not detected (NOT DETECT) 08/07/23 22:54 Parainfluenza 3 (PCR) Not detected (NOT DETECT) 08/07/23 22:54 Parainfluenza 4 (PCR) Not detected (NOT DETECT) 08/07/23 22:54 RSV Type A (PCR) Not detected (NOT DETECT) 08/07/23 22:54 RSV Type B (PCR) Not detected (NOT DETECT) 08/07/23 22:54 Entero/Rhino (PCR) Not detected (NOT DETECT) 08/07/23 22:54 SARS-CoV-2 (PCR) Not detected (NOT DETECT) 08/07/23 22:54 SARS-CoV-2 Ag (Rapid) negative (Negative) 08/07/23 19:10 Vitals Last Vital Signs Temp 97.0 F L 08/10/23 08:58 Pulse 83 08/10/23 08:58 Resp 18 08/10/23 08:58 BP 134/79 08/10/23 08:58 Pulse Ox 91 08/10/23 08:58 O2 Del Method Room Air 08/10/23 08:58 O2 Flow Rate 3 08/09/23 08:00 Discharge Plan Discharge Patient Disposition: Home Condition: Stable Prescriptions: New azithromycin 250 mg Tablet 500 mg PO DAILY Qty: 4 0RF prednisone 20 mg Tablet 40 mg PO DAILY Qty: 12 0RF Rx Instructions: Take 2 tabs X 3 days, then 1 tab X 3days, then 1/2 tab X 3 days. Then stop. Please take with food. cefdinir 300 mg capsule 300 mg PO BID 10 Days Qty: 20 0RF Continued Stiolto Respimat 2.5-2.5 mcg/actuation mist 2 puff inhalation DAILY albuterol sulfate [Ventolin HFA] 90 mcg/actuation HFA aerosol inhaler 1 inh inhalation Q6H PRN (Reason: shortness of breath or wheezing) Qty: 8.5 3RF pantoprazole 40 mg tablet,delayed release (DR/EC) 40 mg PO DAILY PRN (Reason: acid reflux) Qty: 60 1RF albuterol sulfate 1.25 mg/3 mL solution for nebulization 1.25 mg inhalation QID PRN (Reason: shortness of breath or wheezing) Qty: 180 1RF guaifenesin [Mucinex] 600 mg tablet extended release 12hr 600 mg PO Q12H PRN (Reason: Congestion) Qty: 60 1RF fluticasone propionate 220 mcg/actuation HFA aerosol inhaler 1 puff inhalation BID Qty: 12 3RF aspirin [Aspir-81] 81 mg Tablet,Delayed Release (Dr/Ec) 81 mg PO DAILY naproxen [Naprosyn] 500 mg tablet 500 mg PO BID PRN (Reason: pain) Qty: 20 0RF Discharge Orders: Discharge Order (Routine); Ordered 08/10/23 Ordered By: Eugene Herrera Referrals: KenroyrPhani MD [Physician] - 3 weeks Laron Tello MD [Physician] - 08/19/23 1:15 pm (You will need to be there at 1:00pm to complete paperwork. ) Discharge Diet: Usual diet Discharge Activity: Increase activity as tolerated Patient Instructions: Prednisone (By mouth), Azithromycin (By mouth), Cefdinir (By mouth), Community Acquired Pneumonia (DC), Opioid Safety Discharge Attestations Time Spent in Discharge Care*: greater than 30 min Quality Metrics Clinical Quality Measures [ No reported AMI, CVA or VTE this stay] Coding Level of Care Code Acute Code for Chg Fwd Diagnoses Community acquired pneumonia J18.9 Laterality: left Lung location: lower lobe of lung Panlobular emphysema J43.1 COPD type: emphysema Emphysema type: panlobular Hilar lymphadenopathy R59.0 Pulmonary nodule less than 1 cm in diameter with moderate to high risk for malignant neoplasm R91.1; Z91.89 Sepsis with acute hypoxic respiratory failure without septic shock, due to unspecified organism A41.9; R65.20; J96.01 Acute respiratory failure type: with hypoxia Sepsis acute organ dysfunction status: with acute organ dysfunction Sepsis type: sepsis due to unspecified organism Severe sepsis acute organ dysfunction type: acute respiratory failure Severe sepsis shock status: without septic shock Acute respiratory failure with hypoxia J96.01
[2023-08-10 11:25] LABS: Glucose Point of Care 166 mg/dL (70-110)
--- NOTE | 2023-08-10 13:02 | PC.NURSE ---
Patient IV removed intact. Patient tolerated well. Patient is A&Ox3. Respirations even and non-labored on room air. Oxygen at 93% on room air. Reviewed patient discharge with patient. Patient verbalized understating of discharge instructions and follow up appointments. Patient ambulated from [facility] with a steady gait to private car.
== END 2023-08-10 13:02 | disposition home or self-care (01) | DRG 871 ==
LOC: ER 23:08 → MEDSURG 23:19
PROVIDERS: Family Medicine; Admitting Provider Internal Medicine; Emergency Provider Internal Medicine; PCP Family Medicine Adult Medicine; Visit Provider Internal Medicine
DX: A41.9 Sepsis, unspecified organism (principal); J18.9 Pneumonia, unspecified organism; J96.01 Acute respiratory failure with hypoxia; J44.1 Chronic obstructive pulmonary disease with (acute) exacerbation; E87.20 Acidosis, unspecified; R65.20 Severe sepsis without septic shock; J43.1 Panlobular emphysema; R91.1 Solitary pulmonary nodule; G47.33 Obstructive sleep apnea (adult) (pediatric); R59.0 Localized enlarged lymph nodes; Z99.81 Dependence on supplemental oxygen; Z11.52 Encounter for screening for COVID-19; Z79.82 Long term (current) use of aspirin; Z87.891 Personal history of nicotine dependence
CPT/HCPCS: 36415; 36416; 71045; 71275; 74230; 80048; 80053; 82962; 83036; 83605; 83735; 83880; 84100; 84145; 84443; 84484; 85025; 86140; 87040; 87070; 87077; 87205; 87426; 87486; 87581; 87633; 87804; 92610; 92611; 93005; 94640; 94760; 96365; 96372; 96375; 99285; J0696; J1650; J1815; J1956; J2919; J2920; J2930; J7120; J7512; Q0144; Q9967

== ENCOUNTER 2023-08-18 08:28 | Outpatient (CLI) | payer MEDICAID, SELFPAY ==
--- NOTE | 2023-08-18 09:01 | PETR_ITS ---
PROCEDURE INFORMATION: Exam: PET/CT Whole Body Exam date and time: 08/18/2023 9:40 AM Age: 48 years old Clinical indication: Abnormal findings; 2. Hilar indeterminate lymph nodes are difficult to evaluate. This study was performed without iv. Contrast. Largest lymph node is right suprahilar 1.8 cm. Consider evaluation with postcontrast chest. CT. ; Additional info: Pulm nodule LABS AND CLINICAL REPORTS: Glucose: 112 mg/dl Treatment strategy for malignancy (PET staging): Initial Staging (PI) TECHNIQUE: Imaging protocol: Following at least four-hour fasting and following the injection of radiopharmaceutical, low dose CT images were obtained. Then, PET images were obtained. Attenuation corrected images were constructed using the CT scan. Fused images of PET and CT were reviewed. The standardized uptake values (SUV) reported below are maximum values within a region of interest, expressed in gm/ml. Exam includes the whole body. Radiopharmaceutical: 14.2 mCi F-18 FDG (Fluorodeoxyglucose), IV. Time of imaging post radiopharmaceutical administration: 1 hour Injection site: Right antecubital COMPARISON: CT angio chest PE protcl [id number] 08/07/2023 9:49 PM, CT chest 07/27/2023, CT abdomen and pelvis 04/17/2023 FINDINGS: Brain: Visualized brain has normal physiologic uptake. Paranasal sinuses: Non radiotracer avid lobulated mucosal thickening in the left maxillary sinus is consistent with the presence of a mucous retention cyst or polyp. Pharynx: Uptake within the region of the palatine tonsils is likely physiologic or inflammatory, SUV max 4.0 on the right and left. Larynx: No abnormal uptake. Lungs, pleura and trachea: No abnormal uptake. Left lung calcified granulomas are present. Non radiotracer avid small solid noncalcified nodules in the right lung are similar. Examples: Measuring 0.4 x 0.2 cm medially on series 18, image 115; posteriorly measuring 4-5 mm on series 18, image 121; measuring 3 mm on image 122. No definite solid left-sided pulmonary nodules are noted with limitations of mild respiratory motion artifact. Regions dependent patchy density in the posteroinferior left lower lobe on the CT of 08/07/2023 have resolved. Mild dependent streaky density in the lungs is consistent with atelectasis. Heart: Normal physiologic uptake. Mediastinal space: No abnormal uptake. Liver: No abnormal uptake. Gallbladder and bile ducts: No abnormal uptake. Pancreas: No abnormal uptake. Spleen: No abnormal uptake. Calcified granulomas in the spleen are noted. Adrenal glands: No abnormal uptake. Kidneys and ureters: Normal physiologic uptake. Stomach and bowel: No abnormal uptake. Vasculature: No abnormal uptake. Lymph nodes: No abnormal uptake. A previously noted right suprahilar lymph node measures 1.5 x 1.2 cm (previously 2.2 x 1.[address] of 08/07/2023). Small non radiotracer avid benign-appearing bilateral hilar and mediastinal calcified lymph nodes are present. Bones/joints: No abnormal uptake in the visualized axial and appendicular skeleton. Soft tissues: Mild benign-appearing likely physiologic uptake is noted in the soft tissues in the dorsum of the right foot without a corresponding lesion on the CT images. A small to moderate sized uncomplicated appearing fat containing right inguinal hernia is noted. METRICS: Mediastinal blood pool: SUV max 1.7 PET/PET WB melanoma INITIAL [id number] IMPRESSION: 1. No evidence of radiotracer avid malignancy. 2. Similar small solid right sided pulmonary nodules without elevated uptake. No definite left-sided nodules. Assessment of small nodules can be limited by PET-CT. 3. Interval resolution of previously noted patchy density in the posteroinferior left lower lobe without elevated uptake. 4. No radiotracer avid lymphadenopathy is noted. A previously noted prominent right suprahilar lymph node is decreased in size compared with 08/07/2023 without elevated uptake. 5. Old granulomatous changes. 6. Additional nonurgent findings as detailed above.
== END 2023-08-18 08:29 | disposition home or self-care (01) ==
LOC: RAD 08:32
PROVIDERS: PCP Family Medicine; Visit Provider Family Medicine Adult Medicine
DX: R91.1 Solitary pulmonary nodule (principal)
CPT/HCPCS: 78816; A9552

== ENCOUNTER 2024-01-12 07:46 | Outpatient (CLI) | payer OTHER, SELFPAY ==
[2024-01-12 08:12] VITALS: PULSE 88; RESP 18; O2SAT 95
[2024-01-12] MEDS: albuterol 2.5 mg/3 mL Neb INHALATION (08:12)
[2024-01-12 10:34] VITALS: PULSE 91
== END 2024-01-12 07:47 | disposition home or self-care (01) ==
LOC: RT 07:47
PROVIDERS: PCP Family Medicine; Visit Provider Family Medicine
DX: J44.9 Chronic obstructive pulmonary disease, unspecified (principal)
CPT/HCPCS: 94060; 94618; J7613

== ENCOUNTER 2024-04-07 20:19 | Emergency (ER) | payer MEDICAID, SELFPAY ==
[2024-04-07 20:29] VITALS: BP 155/81; PULSE 99; TEMP 36.7; O2SAT 94; BMI 34.4
--- NOTE | 2024-04-07 20:39 | ECG_ITS ---
[facility] Date: 2024-04-07 Pat Name: Fred Orosco Department: Room: Gender: Male It Support Analyst: : 1975 Requested By: Cynthia Maldonado Order Number: [id number] Montes MD: Khanh Espinoza M.D. Measurements Intervals [place] Rate: 94 P: 42 DC: 168 QRS: 71 QRSD: 101 T: 68 QT: 315 QTc: 395 Interpretive Statements SINUS RHYTHM POSSIBLE RIGHT VENTRICULAR CONDUCTION DELAY [RSR (QR) IN V1/V2] Compared to ECG 08/07/2023 20:23:28 Sinus tachycardia no longer present Electronically Signed On 04-10-2024 18:56:59 FITNESS TRAINER by Khanh Espinoza M.D. [email or web address]
--- NOTE | 2024-04-07 21:46 | XRR_ITS ---
PROCEDURE INFORMATION: Exam: XR Chest Exam date and time: 04/07/2024 10:03 PM Age: 49 years old Clinical indication: Cough and shortness of breath; Patient HX: C/O cough with SOB. TECHNIQUE: Imaging protocol: Radiologic exam of the chest. Views: 1 view. COMPARISON: CT angio chest PE prot [id number] 08/07/2023 9:49 PM FINDINGS: Lungs: Bibasilar pneumonic infiltrates. Emphysematous changes. Pleural spaces: Unremarkable. No pleural effusion. No pneumothorax. Heart/Mediastinum: Unremarkable. No cardiomegaly. Bones/joints: Unremarkable. XR/XR chest 1V portable [id number] IMPRESSION: 1. Bibasilar pneumonic infiltrates. 2. Emphysematous changes.
--- NOTE | 2024-04-07 22:04 | ED_ITS ---
HPI - General Adult 2 General: Chief complaint: General Medical Stated complaint: Drowning In Mucas\Blood in Stool Time Seen by Provider: 04/07/24 22:03 History of Present Illness: 49-year-old man with history of COPD who presents emergency room with concern he might have pneumonia again. Says been having some cough and some worsening shortness of breath. Mild wheeze on exam. O2 sats 94% on room air. He also says he has been having some blood in the stools for a long time now. He says no doctor has been able to figure it out yet. No abdominal pain. Blood pressure is normal. Related Data Home Medications Medication Instructions Recorded Confirmed aspirin 81 mg tablet,delayed 81 mg PO DAILY 07/26/23 09/04/23 release Previous Rx's Medication Instructions Recorded albuterol sulfate 1.25 mg/3 mL 1.25 mg (3 mL) inhalation QID PRN 05/08/23 solution for nebulization shortness of breath or wheezing #180 mL guaifenesin 600 mg tablet, 600 mg PO Q12H PRN Congestion #60 06/23/23 extended release 12 hr (Mucinex) tabs fluticasone propionate 220 1 puff inhalation BID #12 grams 07/01/23 mcg/actuation HFA aerosol inhaler pantoprazole 40 mg tablet,delayed 40 mg PO DAILY PRN acid reflux #60 07/02/23 release tabs albuterol sulfate 90 mcg/actuation 1 inh inhalation Q6H PRN shortness 07/10/23 aerosol inhaler (Ventolin HFA) of breath or wheezing #8.5 grams naproxen 500 mg tablet (Naprosyn) 500 mg PO BID PRN pain #20 tabs 07/26/23 azithromycin 250 mg tablet 500 mg (2 x 250 mg) PO DAILY #4 08/10/23 tabs prednisone 20 mg tablet 40 mg (2 x 20 mg) PO DAILY #12 tabs 08/10/23 tiotropium 2.5 mcg-olodaterol 2.5 2 puff inhalation DAILY #4 grams 11/05/23 mcg/actuation mist for inhalation (Stiolto Respimat) doxycycline hyclate 100 mg capsule 100 mg PO BID 7 days #14 caps 04/07/24 prednisone 20 mg tablet 60 mg (3 x 20 mg) PO DAILY #20 tabs 04/07/24 Allergies Allergy/AdvReac Type Severity Reaction Status Date / Time Penicillins Allergy Mild ALGY-Fever Verified 04/07/24 20:35 Review of Systems 2 Narrative: Constitutional symptoms: Negative except as documented in HPI. Skin symptoms: Negative except as documented in HPI. Eye symptoms: Negative except as documented in HPI. ENMT symptoms: Negative except as documented in HPI. Respiratory symptoms: Negative except as documented in HPI. Cardiovascular symptoms: Negative except as documented in HPI. Gastrointestinal symptoms: Negative except as documented in HPI. Genitourinary symptoms: Negative except as documented in HPI. Musculoskeletal symptoms: Negative except as documented in HPI. Neurologic symptoms: Negative except as documented in HPI. Psychiatric symptoms: Negative except as documented in HPI. Endocrine symptoms: Negative except as documented in HPI. PFSH ED 2 PFSH: Medical History Chest wall pain, chronic Hilar lymphadenopathy Pulmonary nodule less than 1 cm in diameter with moderate to high risk for malignant neoplasm Former heavy cigarette smoker (20-39 per day) Quit smoking 04/22/2023 Chronic GERD COPD (chronic obstructive pulmonary disease) Surgical History No pertinent past surgical history Family History Father Heart disease Mother Heart disease Diabetes Gout Polio Other Cancer Social History Smoking and tobacco/nicotine status: former use of tobacco/nicotine (2 - 21/2 packs per day) Alcohol intake: former Substance/Drug Use: never Adopted: No service: No Current occupational exposures/hazards: Yes 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 Skin: Warm, dry. Head: Normocephalic, atraumatic. Neck: Supple, trachea midline. Eye: Extraocular movements are intact. Ears, nose, mouth and throat: Oral mucosa moist. Cardiovascular: Regular rate and rhythm, Normal peripheral perfusion. Respiratory: some expiratory wheeze, mild increased wob, breath sounds are equal, Symmetrical chest wall expansion. Gastrointestinal: Soft, Nontender, Non distended, Normal bowel sounds. Musculoskeletal: Normal ROM, no deformity. Neurological: Alert and oriented to person, place, time, and situation, No focal neurological deficit observed. Psychiatric: Cooperative, appropriate mood & affect. Course 2 Vital Signs: Vital signs: Vital Signs Temperature 98.0 F 04/07/24 20:29 Pulse Rate 88 04/07/24 23:33 Respiratory Rate 19 H 04/07/24 23:33 Blood Pressure 122/74 04/07/24 23:33 Pulse Oximetry 92 04/07/24 23:33 Oxygen Delivery Me thod Room Air 04/07/24 20:29 MDM - General Adult Medical Decision Making Differential diagnosis for patient with shortness of breath includes but is not limited to and based on the above HPI, review of systems and physical exam: Pneumonia. Bronchitis. Asthma or COPD with acute exacerbation. Acute coronary syndrome / IN. Pulmonary embolism. Anxiety. Congestive heart failure. Viral infections including influenza and Covid-19. Atrial fibrillation. Anxiety. Pleural effusion. Pneumothorax. Orders placed to evaluate differential diagnosis based on the above differential, HPI and physical exam Lab Review: Laboratory results were reviewed and interpreted by myself the emergency room physician. White count is 10. Hemoglobin 13.6. BUN/creatinine are normal at 15 and 0.9. Chest x-ray: Bibasilar patchy infiltrates. Otherwise no acute process. He does have some emphysematous changes. This was reviewed and interpreted by myself the emergency room physician. I also reviewed the radiology report. I reviewed the patient's medical record. Reexamination: Patient remained stable. No increased work of breathing. No altered mental status. No focal motor deficits. No oxygen requirement Assessment and plan: COPD with acute exacerbation Pneumonia/pneumonitis ?Solu-Medrol and doxycycline IV in the emergency room - Discharged home - Discussed findings and plan with patient. Answered any questions. - All laboratory values were reviewed and interpreted personally by myself, the ER physician - All imaging was reviewed and interpreted personally by myself, the ER physician. - Evaluation and treatment of this problem were appropriate in the emergency setting Lab Data 04/07/24 22:09 04/07/24 22:09 Radiology Impressions Chest X-Ray 04/07/24 21:46 IMPRESSION: 1. Bibasilar pneumonic infiltrates. 2. Emphysematous changes. Laboratory Results WBC 10.10 10^3/uL (3.29-11.43) 04/07/24 22:09 RBC 4.88 10^6/uL (3.85-5.65) 04/07/24 22:09 Hgb 13.60 g/dL (11.27-16.99) 04/07/24 22:09 Hct 40.1 % (37-53) 04/07/24 22:09 MCV 82.2 fl (82-101) 04/07/24 22:09 MCH 27.9 pg (27-33) 04/07/24 22:09 MCHC 33.9 g/dL (30-55) 04/07/24 22:09 RDW 13.9 % (12.1-15.1) 04/07/24 22:09 Plt Count 247 10^3/cmm (157-399) 04/07/24 22:09 MPV 9.1 fL (7.4-10.4) 04/07/24 22:09 Neut % (Auto) 59.2 % 04/07/24 22:09 Lymph % (Auto) 24.3 % 04/07/24 22:09 Pierce % (Auto) 9.2 % 04/07/24 22:09 Eos % (Auto) 5.6 % 04/07/24 22:09 Baso % (Auto) 1.0 % 04/07/24 22:09 Neut # (Auto) 5.98 10^3/uL (1.8-7.7) 04/07/24 22:09 Lymph # (Auto) 2.5 10^3/uL (0.8-4.8) 04/07/24 22:09 Pierce # (Auto) 0.9 10^3/uL (0.2-0.9) 04/07/24 22:09 Eos # (Auto) 0.6 10^3/uL (0.0-0.8) 04/07/24 22:09 Baso # (Auto) 0.1 10^3/uL (0.0-0.1) 04/07/24 22:09 Nucleated RBC % (auto) 0 % 04/07/24 22:09 Nucleated RBCs # 0.0 /100WBC 04/07/24 22:09 Sodium 140 mmol/L (136-145) 04/07/24 22:09 Potassium 3.9 mmol/L (3.5-5.1) 04/07/24 22:09 Chloride 104 mmol/L (98-107) 04/07/24 22:09 Carbon Dioxide 23 mmol/L (22-29) 04/07/24 22:09 Anion Gap 16.9 (5-19) 04/07/24 22:09 BUN 15 mg/dL (6-20) 04/07/24 22:09 Creatinine 0.9 mg/dL (0.7-1.2) 04/07/24 22:09 GFR Calculation 89.7 mL/min (90-130) L 04/07/24 22:09 Glucose 144 mg/dL (65-115) H 04/07/24 22:09 Calculated Osmolality 293 mOsm/kg (285-295) 04/07/24 22:09 Lactic Acid 2.0 mmol/L (0.5-2.2) 04/07/24 22:09 Calcium 8.8 mg/dL (8.5-10.5) 04/07/24 22:09 Total Bilirubin 0.4 mg/dL (0.15-1.2) 04/07/24 22:09 AST 16 U/L (0-40) 04/07/24 22:09 ALT 27 U/L (0-41) 04/07/24 22:09 Alkaline Phosphatase 103 U/L (40-130) 04/07/24 22:09 Total Protein 6.8 g/dL (6.6-8.7) 04/07/24 22:09 Albumin 4.2 g/dL (3.5-5.2) 04/07/24 22:09 Globulin 2.6 g/dL (1.3-4.6) 04/07/24 22:09 All radiology interpretation(s) finalized by discharge Discharge Plan Discharge Patient Disposition: Home Clinical Impression: COPD with acute exacerbation Condition: Stable Prescriptions: New doxycycline hyclate 100 mg capsule 100 mg PO BID 7 Days Qty: 14 0RF prednisone 20 mg tablet 60 mg PO DAILY Qty: 20 0RF Rx Instructions: 3 tabs (60 mg) x 3 days. 2 tabs (40 mg) x 3 days. 1 tab (20 mg) x 3 days. 1/2 tab (10 mg) x 4 days No Action albuterol sulfate [Ventolin HFA] 90 mcg/actuation HFA aerosol inhaler 1 inh inhalation Q6H PRN (Reason: shortness of breath or wheezing) Qty: 8.5 3RF pantoprazole 40 mg tablet,delayed release (DR/EC) 40 mg PO DAILY PRN (Reason: acid reflux) Qty: 60 1RF albuterol sulfate 1.25 mg/3 mL solution for nebulization 1.25 mg inhalation QID PRN (Reason: shortness of breath or wheezing) Qty: 180 1RF guaifenesin [Mucinex] 600 mg tablet extended release 12hr 600 mg PO Q12H PRN (Reason: Congestion) Qty: 60 1RF fluticasone propionate 220 mcg/actuation HFA aerosol inhaler 1 puff inhalation BID Qty: 12 3RF Stiolto Respimat 2.5-2.5 mcg/actuation mist 2 puff inhalation DAILY Qty: 4 3RF aspirin 81 mg Tablet,Delayed Release (Dr/Ec) 81 mg PO DAILY naproxen [Naprosyn] 500 mg tablet 500 mg PO BID PRN (Reason: pain) Qty: 20 0RF azithromycin 250 mg Tablet 500 mg PO DAILY Qty: 4 0RF prednisone 20 mg Tablet 40 mg PO DAILY Qty: 12 0RF Rx Instructions: Take 2 tabs X 3 days, then 1 tab X 3days, then 1/2 tab X 3 days. Then stop. Please take with food. Discharge Orders: Discharge ED (Routine); Ordered 04/07/24 Ordered By: Cynthia Jovel Referrals: Laron Tello MD [Primary Care Provider] - Discharge Diet: Usual diet Discharge Activity: Increase activity as tolerated Patient Instructions: COPD (Chronic Obstructive Pulmonary Disease) (ED), Opioid Safety, Pain Management Activity Restrictions/Additional Instructions: Thank you for choosing [facility] for your healthcare needs today. Please realize this is an emergency room and that we are providing you with a medical screening exam and this may not be complete and all inclusive of all the testing and or work up that you may need to determine your ailment or severity of your illness. You have been screened and evaluated and felt safe for discharge. Health conditions do change or evolve sometimes and as such it is important that you follow up with your Primary Doctor to be re checked, 3-5 days is a general good time frame for follow up. You are always welcome to return to the ED for re assessment if your symptoms are worsening or you have new concerns Coding Level of Care Code ED Windows Server Support Technician for Cayden Olivares
[2024-04-07 22:34] LABS: Basophils # 0.1 10^3/uL (0.0-0.1); Eosinophils # 0.6 10^3/uL (0.0-0.8); Eosinophils % 5.6 %; Hematocrit 40.1 % (37-53); Lymphocytes # 2.5 10^3/uL (0.8-4.8); Lymphocytes % 24.3 %; Mean Corpuscular HGB Conc 33.9 g/dL (30-55); Mean Corpuscular Hemoglobin 27.9 pg (27-33); Mean Corpuscular Volume 82.2 fl (82-101); Mean Platelet Volume 9.1 fL (7.4-10.4); Monocytes # 0.9 10^3/uL (0.2-0.9); Monocytes % 9.2 %; Neutrophils # 5.98 10^3/uL (1.8-7.7); Neutrophils % 59.2 %; Nucleated Red Blood Cells % 0 %; Platelet Count 247 10^3/cmm (157-399); Red Blood Count 4.88 10^6/uL (3.85-5.65); Red Cell Distribution Width 13.9 % (12.1-15.1)
[2024-04-07 22:48] LABS: Alanine Aminotransferase 27 U/L (0-41); Albumin Level 4.2 g/dL (3.5-5.2); Alkaline Phosphatase 103 U/L (40-130); Anion Gap 16.9 (5-19); Aspartate Amino Transferase 16 U/L (0-40); Blood Urea Nitrogen 15 mg/dL (6-20); Calcium 8.8 mg/dL (8.5-10.5); Carbon Dioxide 23 mmol/L (22-29); Chloride 104 mmol/L (98-107); Creatinine Clr Calc Pharmacy 141.5224; Globulin 2.6 g/dL (1.3-4.6); Glomerular Filtration Rate 89.7 mL/min (90-130); Glucose 144 mg/dL (65-115); Osmolality Calculated 293 mOsm/kg (285-295); Potassium 3.9 mmol/L (3.5-5.1); Sodium 140 mmol/L (136-145); Total Bilirubin 0.4 mg/dL (0.15-1.2); Total Protein 6.8 g/dL (6.6-8.7)
[2024-04-07] MEDS: methylPREDNISolone sod succ 125 mg/2 mL INJ IVP (23:14)
[2024-04-07] MEDS: doxycycline 100 MG in sodium chloride 0.9% (plus) 100 ML IV (23:18)
[2024-04-07 23:33] VITALS: BP 122/74; PULSE 88; RESP 19; O2SAT 92
[2024-04-08 00:16] VITALS: BP 105/64; PULSE 82; RESP 18; O2SAT 100
[2024-04-08 00:16] LABS: Covid PCR NEGATIVE (Negative); Influenza A NEGATIVE (Negative); Influenza B NEGATIVE (Negative); Respiratory Syncytial Virus Ce NEGATIVE (Negative)
== END 2024-04-08 00:17 | disposition home or self-care (01) ==
PROVIDERS: Emergency Provider Emergency Medicine; PCP Family Medicine
DX: J44.1 Chronic obstructive pulmonary disease with (acute) exacerbation (principal); Z79.82 Long term (current) use of aspirin; Z87.891 Personal history of nicotine dependence
CPT/HCPCS: 0241U; 36415; 71045; 80053; 83605; 85025; 87040; 93005; 96365; 96375; 99285; J2919; J3490

== ENCOUNTER 2024-05-02 05:42 | Observation (INO) | payer MEDICAID, SELFPAY ==
[2024-05-02] VITALS (15 sets, daily range): BP systolic 104–136; BP diastolic 62–92; PULSE 64–123; RESP 18–22; TEMP 36.6–36.8; O2SAT 88–96; BMI 34.3
--- NOTE | 2024-05-02 06:20 | XRR_ITS ---
PROCEDURE INFORMATION: Exam: XR Chest Exam date and time: 05/02/2024 6:31 AM Age: 49 years old Clinical indication: Cough and shortness of breath; Additional info: Dyspnea/cough TECHNIQUE: Imaging protocol: Radiologic exam of the chest. Views: 1 view. COMPARISON: CR (CHEST, ) 04/07/2024 10:03 PM FINDINGS: Lungs: Minimal atelectasis at the lung bases. Pleural spaces: Unremarkable. No pleural effusion. No pneumothorax. Heart/Mediastinum: Unremarkable. No cardiomegaly. Bones/joints: Unremarkable. XR/XR chest 1V portable [id number] IMPRESSION: No acute findings.
--- NOTE | 2024-05-02 06:43 | W.ED.SOB ---
HPI - SOB/Dyspnea General: Chief Complaint: Upper Respiratory Infection Stated Complaint: Cant breathe Time Seen by Provider: 05/02/24 06:01 History of Present Illness: HPI Narrative: 49-year-old male presents to the emergency room with complaints of shortness of breath. Patient has a history of COPD is oxygen dependent he usually uses 3 to 4 L. He is complaining of a productive cough for the last several days at the beginning of progressively worse. He has pain in his chest with coughing and pain associated with his upper back also with coughing. He has not really had a fever. No history of PE. Still a bit of a confusing history of heart disease he said at 31 they did do an angiogram after an episode of chest pain he was initially told to the best of his recollection that he had some heart disease but nothing that required intervention he states later someone was reviewing his records told him he probably did not have a heart attack. This was 17 to 18 years ago. He is not having any substernal chest pain today. He does have a nebulizer at home he last used yesterday morning with moderate relief of symptoms. Associated symptoms: Reports chest congestion and hemoptysis (Scant streaks of blood and mucus); Deny abdominal pain, chest pain or fever(s) Related Data Home Medications Medication Instructions Recorded Confirmed aspirin 81 mg tablet,delayed 81 mg PO DAILY 07/26/23 05/02/24 release fluticasone fur. 100 mcg-umeclid 1 inh inhalation DAILY 05/02/24 05/02/24 62.5 mcg-vilant 25 mcg inhalat.powder (Trelegy Ellipta) isosorbide mononitrate 30 mg 30 mg PO QAM 05/02/24 05/02/24 tablet,extended release 24 hr losartan 50 mg tablet 50 mg PO DAILY 05/02/24 05/02/24 metoprolol succinate 25 mg 25 mg PO DAILY 05/02/24 05/02/24 tablet,extended release 24 hr omeprazole 20 mg capsule,delayed 20 mg PO BID 05/02/24 05/02/24 release rosuvastatin 40 mg tablet 40 mg PO DAILY 05/02/24 05/02/24 Previous Rx's Medication Instructions Recorded albuterol sulfate 1.25 mg/3 mL 1.25 mg (3 mL) inhalation QID PRN 05/08/23 solution for nebulization shortness of breath or wheezing #180 mL pantoprazole 40 mg tablet,delayed 40 mg PO DAILY PRN acid reflux #60 07/02/23 release tabs albuterol sulfate 90 mcg/actuation 1 inh inhalation Q6H PRN shortness 07/10/23 aerosol inhaler (Ventolin HFA) of breath or wheezing #8.5 grams Allergies Allergy/AdvReac Type Severity Reaction Status Date / Time Penicillins Allergy Mild ALGY-Fever Verified 05/02/24 05:49 Review of Systems Const: Denies: fever(s) or chills Card: Denies: chest pain Resp: Reports: dyspnea, productive cough, hemoptysis (Scant streaks of blood and mucus) and chest congestion GI: Denies: abdominal pain : Denies: dysuria, urinary frequency or urinary urgency Musc: Denies: neck pain or back pain Skin/Breast: Denies: rash PFSH ED PFSH: Medical History Chest wall pain, chronic Hilar lymphadenopathy Pulmonary nodule less than 1 cm in diameter with moderate to high risk for malignant neoplasm Former heavy cigarette smoker (20-39 per day) Quit smoking 04/22/2023 Chronic GERD COPD (chronic obstructive pulmonary disease) Surgical History No pertinent past surgical history Family History Father Heart disease Mother Heart disease Diabetes Gout Polio Other Cancer Social History Smoking and tobacco/nicotine status: former use of tobacco/nicotine (2 - 21/2 packs per day) Alcohol intake: former Substance/Drug Use: never Adopted: No service: No Current occupational exposures/hazards: Yes 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 Current gender identity: Male Physical Exam Const: GENERAL APPEARANCE: cooperative ORIENTATION/CONSCIOUSNESS: Yes awake, Yes oriented to person, Yes oriented to place and Yes oriented to time HENMT: COMMON NORMALS: normocephalic, atraumatic and hearing grossly normal bilaterally HEAD & SCALP: normocephalic and atraumatic Resp: COMMON NORMALS: normal respiratory effort, No retractions and No use of accessory muscles AUSCULTATION: wheezes Cardio: COMMON NORMALS: regular rate, regular rhythm and No murmurs present (Cardio) RATE: regular rate and tachycardic RHYTHM: regular rhythm GI: COMMON NORMALS: Soft to palpation and No hepatosplenomegaly present AUSCULTATION: Yes normoactive bowel sounds PALPATION: Yes Soft to palpation, No Tenderness to palpation present (GI), No Guarding due to palpation present (GI) and Yes No hepatosplenomegaly present Extremity: COMMON NORMALS: normal to inspection, capillary refill normal, no clubbing, cyanosis or edema, no calf tenderness and no pedal edema Neuro: SENSORIUM/ORIENTATION: Yes oriented to person, Yes oriented to place and Yes oriented to time Skin: COMMON NORMALS: no rashes or lesions noted GENERAL SKIN EXAM: no rashes or lesions noted Course Vital Signs: Vital signs: Vital Signs Temperature 97.9 F 05/02/24 05:45 Pulse Rate 102 H 05/02/24 09:00 Respiratory Rate 18 05/02/24 07:19 Blood Pressure 113/62 05/02/24 09:00 Pulse Oximetry 91 05/02/24 09:00 Oxygen Delivery Me thod Nasal Cannula 05/02/24 09:00 Oxygen Flow Rate 3 05/02/24 09:00 MDM - SOB/Dyspnea Medical Decision Making Patient is tachycardic with expiratory wheezes. He has not been using his oxygen regularly and is now requiring 4 L. Suspect that later in the day he would have progressive worsening. He is given steroids and nebs will place on observation discussed with hospitalist orders written Medical Records I reviewed the patient's medical records. Lab Data I reviewed the patient's lab results. 05/02/24 06:50 05/02/24 06:50 Labs/Radiology: Radiology Impressions Chest X-Ray 05/02/24 06:20 IMPRESSION: No acute findings. Laboratory Results WBC 11.31 10^3/uL (3.29-11.43) 05/02/24 06:50 RBC 5.13 10^6/uL (3.85-5.65) 05/02/24 06:50 Hgb 14.40 g/dL (11.27-16.99) 05/02/24 06:50 Hct 42.5 % (37-53) 05/02/24 06:50 MCV 82.8 fl (82-101) 05/02/24 06:50 MCH 28.1 pg (27-33) 05/02/24 06:50 MCHC 33.9 g/dL (30-55) 05/02/24 06:50 RDW 13.6 % (12.1-15.1) 05/02/24 06:50 Plt Count 281 10^3/cmm (157-399) 05/02/24 06:50 MPV 8.8 fL (7.4-10.4) 05/02/24 06:50 Neut % (Auto) 71.4 % 05/02/24 06:50 Lymph % (Auto) 14.3 % 05/02/24 06:50 Dickey % (Auto) 8.3 % 05/02/24 06:50 Eos % (Auto) 4.3 % 05/02/24 06:50 Baso % (Auto) 0.8 % 05/02/24 06:50 Neut # (Auto) 8.07 10^3/uL (1.8-7.7) H 05/02/24 06:50 Lymph # (Auto) 1.6 10^3/uL (0.8-4.8) 05/02/24 06:50 Dickey # (Auto) 0.9 10^3/uL (0.2-0.9) 05/02/24 06:50 Eos # (Auto) 0.5 10^3/uL (0.0-0.8) 05/02/24 06:50 Baso # (Auto) 0.1 10^3/uL (0.0-0.1) 05/02/24 06:50 Nucleated RBC % (auto) 0 % 05/02/24 06:50 Nucleated RBCs # 0.0 /100WBC 05/02/24 06:50 Specimen Type Arterial 05/02/24 08:32 Sample Site Radial, right 05/02/24 08:32 ABG pH 7.41 (7.35-7.45) 05/02/24 08:32 ABG pCO2 35.2 mmHg (35-45) 05/02/24 08:32 ABG pO2 62.8 mmHg (80.0-100.0) L 05/02/24 08:32 ABG PO2/FiO2 Ratio 196 05/02/24 08:32 ABG HCO3 22.1 mmol/L (22-26) 05/02/24 08:32 ABG O2 Saturation 92.7 05/02/24 08:32 ABG Base Excess -2.1 mmol/L (-2.0-2.0) L 05/02/24 08:32 Ryan Test Pos 05/02/24 08:32 A-a O2 Gradient 15.9 mmHg (5-10) H 05/02/24 08:32 Hematocrit 44.8 % (42-52) 05/02/24 08:32 Hgb O2 Saturation 90.5 % (95-100) L 05/02/24 08:32 Carboxyhemoglobin 1.5 %THgb (0.4-20.1) 05/02/24 08:32 Methemoglobin 1.0 % (0.4-1.5) 05/02/24 08:32 Total Hemoglobin 14.6 g/dL (14-18) 05/02/24 08:32 Sodium 138.0 mmol/L (131-143) 05/02/24 08:32 Potassium 4.2 mmol/L (3.5-5.0) 05/02/24 08:32 Glucose 183.0 mg/dL (70-115) H 05/02/24 08:32 Ionized Calcium 1.2 mmol/L (1.1-1.4) 05/02/24 08:32 O2 Delivery Device Nc 05/02/24 08:32 O2 Liters/Min 3.0 % 05/02/24 08:32 FiO2 32.0 % 05/02/24 08:32 Engineering Technology Instructor ID glc 05/02/24 08:32 Sodium 139 mmol/L (136-145) 05/02/24 06:50 Potassium 4.3 mmol/L (3.5-5.1) 05/02/24 06:50 Chloride 104 mmol/L (98-107) 05/02/24 06:50 Carbon Dioxide 22 mmol/L (22-29) 05/02/24 06:50 Anion Gap 17.3 (5-19) 05/02/24 06:50 BUN 15 mg/dL (6-20) 05/02/24 06:50 Creatinine 0.8 mg/dL (0.7-1.2) 05/02/24 06:50 GFR Calculation 102.7 mL/min (90-130) 05/02/24 06:50 Glucose 192 mg/dL (65-115) H 05/02/24 06:50 Calculated Osmolality 294 mOsm/kg (285-295) 05/02/24 06:50 Calcium 9.5 mg/dL (8.5-10.5) 05/02/24 06:50 Total Bilirubin 0.5 mg/dL (0.15-1.2) 05/02/24 06:50 AST 16 U/L (0-40) 05/02/24 06:50 ALT 26 U/L (0-41) 05/02/24 06:50 Alkaline Phosphatase 118 U/L (40-130) 05/02/24 06:50 Troponin T Baseline 12 ng/L (0-15) 05/02/24 06:50 Troponin T 120 Minute 8.89 ng/L (0-15) 05/02/24 08:59 Delta Troponin T -3.11 ABS# (0-10) L 05/02/24 08:59 Total Protein 6.8 g/dL (6.6-8.7) 05/02/24 06:50 Albumin 4.3 g/dL (3.5-5.2) 05/02/24 06:50 Globulin 2.5 g/dL (1.3-4.6) 05/02/24 06:50 Coronavirus (PCR) Negative (Negative) 05/02/24 06:26 Influenza A (PCR) Negative (Negative) 05/02/24 06:26 Influenza Type B (PCR) Negative (Negative) 05/02/24 06:26 RSV (PCR) Negative (Negative) 05/02/24 06:26 All radiology interpretation(s) finalized by discharge Discharge Plan Discharge Patient Disposition: Placed in Observation Clinical Impression: Acute exacerbation of chronic obstructive pulmonary disease Condition: Stable Prescriptions: No Action albuterol sulfate [Ventolin HFA] 90 mcg/actuation HFA aerosol inhaler 1 inh inhalation Q6H PRN (Reason: shortness of breath or wheezing) Qty: 8.5 3RF pantoprazole 40 mg tablet,delayed release (DR/EC) 40 mg PO DAILY PRN (Reason: acid reflux) Qty: 60 1RF albuterol sulfate 1.25 mg/3 mL solution for nebulization 1.25 mg inhalation QID PRN (Reason: shortness of breath or wheezing) Qty: 180 1RF aspirin 81 mg Tablet,Delayed Release (Dr/Ec) 81 mg PO DAILY losartan 50 mg tablet 50 mg PO DAILY isosorbide mononitrate 30 mg tablet extended release 24 hr 30 mg PO QAM omeprazole 20 mg capsule,delayed release(DR/EC) 20 mg PO BID metoprolol succinate 25 mg tablet extended release 24 hr 25 mg PO DAILY rosuvastatin 40 mg tablet 40 mg PO DAILY Trelegy Ellipta 100-62.5-25 mcg blister with device 1 inh INHALATION DAILY Referrals: Collins Franco [Primary Care Provider] - Coding Level of Care Code ED Clearing Tub Worker for Shahriarg Marshall
[2024-05-02 07:01] LABS: Basophils # 0.1 10^3/uL (0.0-0.1); Basophils % 0.8 %; Eosinophils # 0.5 10^3/uL (0.0-0.8); Eosinophils % 4.3 %; Hematocrit 42.5 % (37-53); Lymphocytes # 1.6 10^3/uL (0.8-4.8); Lymphocytes % 14.3 %; Mean Corpuscular HGB Conc 33.9 g/dL (30-55); Mean Corpuscular Hemoglobin 28.1 pg (27-33); Mean Corpuscular Volume 82.8 fl (82-101); Mean Platelet Volume 8.8 fL (7.4-10.4); Monocytes # 0.9 10^3/uL (0.2-0.9); Monocytes % 8.3 %; Neutrophils # 8.07 10^3/uL (1.8-7.7); Neutrophils % 71.4 %; Nucleated Red Blood Cells % 0 %; Platelet Count 281 10^3/cmm (157-399); Red Blood Count 5.13 10^6/uL (3.85-5.65); Red Cell Distribution Width 13.6 % (12.1-15.1); White Blood Count 11.31 10^3/uL (3.29-11.43)
[2024-05-02] MEDS: methylPREDNISolone sod succ 125 mg/2 mL INJ IVP (07:14)
[2024-05-02] MEDS: ipratropium-albuterol 3 mL Neb INHALATION ×4 (07:16→20:50)
[2024-05-02 07:19] LABS: Covid PCR NEGATIVE (Negative); Influenza A NEGATIVE (Negative); Influenza B NEGATIVE (Negative); Respiratory Syncytial Virus Ce NEGATIVE (Negative)
--- NOTE | 2024-05-02 07:21 | ECG_ITS ---
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 Measurements Intervals [place] Rate: 105 P: 48 UT: 147 QRS: 71 QRSD: 95 T: 61 QT: 302 QTc: 401 Interpretive Statements SINUS TACHYCARDIA POSSIBLE RIGHT VENTRICULAR CONDUCTION DELAY [RSR (QR) IN V1/V2] ABNORMAL RHYTHM ECG Compared to ECG 04/07/2024 20:39:14 Sinus rhythm no longer present Electronically Signed On 05-02-2024 20:05:36 [employer] by Khanh Espinoza M.D. [email or web address]
[2024-05-02 07:22] LABS: Alanine Aminotransferase 26 U/L (0-41); Albumin Level 4.3 g/dL (3.5-5.2); Alkaline Phosphatase 118 U/L (40-130); Anion Gap 17.3 (5-19); Aspartate Amino Transferase 16 U/L (0-40); Blood Urea Nitrogen 15 mg/dL (6-20); Calcium 9.5 mg/dL (8.5-10.5); Carbon Dioxide 22 mmol/L (22-29); Chloride 104 mmol/L (98-107); Creatinine Clr Calc Pharmacy 158.9264; Globulin 2.5 g/dL (1.3-4.6); Glomerular Filtration Rate 102.7 mL/min (90-130); Glucose 192 mg/dL (65-115); Osmolality Calculated 294 mOsm/kg (285-295); Potassium 4.3 mmol/L (3.5-5.1); Sodium 139 mmol/L (136-145); Total Bilirubin 0.5 mg/dL (0.15-1.2); Total Protein 6.8 g/dL (6.6-8.7); Troponin(5th) Baseline 12 ng/L (0-15)
[2024-05-02 08:42] LABS: ABG PCO2 35.2 mmHg (35-45); ABG PH Result 7.41 (7.35-7.45); Alveolar-Arterial Oxygen Gradi 15.9 mmHg (5-10); Arterial Blood Gas Hematocrit 44.8 % (42-52); Base Excess ABG -2.1 mmol/L (-2.0-2.0); Blood Gas Allen Test Pos; Blood Gas Operator Identificat glc; Blood Gas Sample Site Radial, right; Blood Gas Sample Type Arterial; Carboxyhemoglobin 1.5 %THgb (0.4-20.1); HCO3 ABG 22.1 mmol/L (22-26); HGB O2 Sat 90.5 % (95-100); Ionized Calcium Level - ABG 1.2 mmol/L (1.1-1.4); Oxygen Device NC; Oxygen Saturation ABG 92.7; PO2 ABG 62.8 mmHg (80.0-100.0); PO2 FiO2 Ratio Arterial Blood 196; Potassium Level - ABG 4.2 mmol/L (3.5-5.0); Total Hemoglobin 14.6 g/dL (14-18)
--- NOTE | 2024-05-02 09:03 | ECG_ITS ---
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 Measurements Intervals [place] Rate: 98 P: 55 TN: 156 QRS: 65 QRSD: 95 T: 62 QT: 302 QTc: 386 Interpretive Statements SINUS RHYTHM POSSIBLE RIGHT VENTRICULAR CONDUCTION DELAY [RSR (QR) IN V1/V2] Compared to ECG 05/02/2024 07:21:53 Sinus tachycardia no longer present Electronically Signed On 05-02-2024 20:29:19 PAINT CREW SUPERVISOR by Khanh Espinoza M.D. [email or web address]
[2024-05-02 09:30] LABS: Troponin 5 2HR 8.89 ng/L (0-15)
[2024-05-02 09:39] LABS: Troponin 5 2HR Delta -3.11 ABS# (0-10)
--- NOTE | 2024-05-02 10:18 | PM.HP ---
Providers/Chief Complaint Admitting Physician: Alireza Salas MD, hospitalist Primary Care Provider: Collins Franco Chief Complaint: Cant breathe History of Present Illness Fred Orosco is a 49 year old male with history of COPD, hypertension, nonobstructive coronary disease, who presents with increasing shortness of breath, wheezing, cough productive of yellowish sputum with occasional bloody streaking for the last 3 days. He was also sick a week ago and came into the emergency department and got prednisone, and doxycycline. He reports he got better, then ill again. No vomiting. Reports he is still using 3 to 4 L of oxygen. Follows up mainly at [facility]. Recently had a nuclear stress test he reports was okay. No other lung imaging other than what we have here according to the patient. Reports he felt hot at home, but no documented fever. Has been compliant with his inhalers. A little bit of chest pain with deep inspiration. Received IV steroids in the ER. Overall concern is that he failed outpatient treatment. Review of Systems General: Reports: 10 or more systems reviewed and unremarkable except in HPI and below Card: Reports: chest pain Resp: Reports: dyspnea, wheezing and hemoptysis Medications/Allergies Home Medications Medication Instructions Recorded Confirmed Last Taken Type albuterol sulfate 1.25 mg/3 mL 1.25 mg (3 mL) inhalation QID PRN 05/08/23 05/02/24 08/07/23 Rx solution for nebulization shortness of breath or wheezing 900 #180 mL pantoprazole 40 mg tablet,delayed 40 mg PO DAILY PRN acid reflux #60 07/02/23 05/02/24 Unknown Rx release tabs albuterol sulfate 90 mcg/actuation 1 inh inhalation Q6H PRN shortness 07/10/23 05/02/24 07/26/23 Rx aerosol inhaler (Ventolin HFA) of breath or wheezing #8.5 grams aspirin 81 mg tablet,delayed 81 mg PO DAILY 07/26/23 05/02/24 08/07/23 History release 81 mg fluticasone fur. 100 mcg-umeclid 1 inh inhalation DAILY 05/02/24 05/02/24 Unknown History 62.5 mcg-vilant 25 mcg inhalat.powder (Trelegy Ellipta) isosorbide mononitrate 30 mg 30 mg PO QAM 05/02/24 05/02/24 Unknown History tablet,extended release 24 hr losartan 50 mg tablet 50 mg PO DAILY 05/02/24 05/02/24 Unknown History metoprolol succinate 25 mg 25 mg PO DAILY 05/02/24 05/02/24 Unknown History tablet,extended release 24 hr omeprazole 20 mg capsule,delayed 20 mg PO BID 05/02/24 05/02/24 Unknown History release rosuvastatin 40 mg tablet 40 mg PO DAILY 05/02/24 05/02/24 Unknown History Allergies Allergy/AdvReac Type Severity Reaction Status Date / Time Penicillins Allergy Mild ALGY-Fever Verified 05/02/24 05:49 PFSH Acute PFSH: Medical History Chest wall pain, chronic Hilar lymphadenopathy Pulmonary nodule less than 1 cm in diameter with moderate to high risk for malignant neoplasm Former heavy cigarette smoker (20-39 per day) Quit smoking 04/22/2023 Chronic GERD COPD (chronic obstructive pulmonary disease) Surgical History No pertinent past surgical history Family History Father Heart disease Mother Heart disease Diabetes Gout Polio Other Cancer Social History Smoking and tobacco/nicotine status: former use of tobacco/nicotine (2 - 21/2 packs per day) Alcohol intake: former Substance/Drug Use: never Adopted: No service: No Current occupational exposures/hazards: Yes 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 Oropharynx clear Neck is supple no lymphadenopathy thyromegaly Cardiovascular regular rhythm, tachycardic, no murmur Lungs diminished breath sounds bilaterally, occasional wheeze Abdomen is soft nontender positive bowel sounds exam is deferred Extremities no cyanosis clubbing or edema, cap refill brisk Skin no rash Neuro no obvious focal deficits Data 05/02/24 06:50 05/02/24 06:50 Other Labs: Chest x-ray which I reviewed, possible COPD, no infiltrate I have ordered a D-dimer LFTs are normal Troponin normal ABG demonstrates pH 7.41, pCO2 35, pO2 63 on 3 L Influenza, RSV, COVID-negative A&P Assessment and plan (1) Acute exacerbation of chronic obstructive pulmonary disease: Patient appears to have an acute COPD exacerbation failing outpatient treatment He was recently treated with oral steroids, doxycycline. Patient reports he took the medication. Mucinex 1200 mg twice daily Levaquin 750 mg IV daily initially. With his longstanding COPD, failure of recent treatment with doxycycline, Pseudomonas coverage is warranted. No infiltrate is noted on x-ray. Budesonide twice daily DuoNeb every 4 hours Solu-Medrol 60 mg IV every 12 hours. He received 125 mg IV in the ER. Secondary to some chest discomfort with deep inspiration, occasional blood-streaked sputum, tachycardia, will check a D-dimer. If positive consider CTA (2) Hyperglycemia: Check hemoglobin A1c. This may be due to recent steroid use (3) Coronary artery disease: History of nonobstructive coronary disease. Continue his metoprolol, aspirin, Imdur, beta-jos Plan Patient reports past history of obstructive sleep apnea. Encouraged him to get outpatient follow-up with his primary care provider at [facility] and referral for repeat sleep study. He reports he had a machine in the distant past, but it was taken away secondary to financial reasons. He would like to be treated again if possible. Other medical problems as outlined in past medical history Full code Lovenox for DVT prophylaxis Attestations Medical Necessity Statement*: Will need less than 2 midnight stay for evaluation and treatment of acute COPD exacerbation, failing outpatient treatment. Diagnoses Acute exacerbation of chronic obstructive pulmonary disease J44.1 Hyperglycemia R73.9 Coronary artery disease I25.10 Time Spent (min) 42
[2024-05-02] MEDS: levofloxacin-dextrose 5 % 750 MG/150 ML PREMIX 100 MG IV (10:27)
[2024-05-02 11:15] LABS: Estmated Average Glucose 160; Hemoglobin A1C 7.2 % (4.0-6.0)
[2024-05-02] MEDS: enoxaparin 40 mg/0.4 mL Syringe SUBCUT (12:22)
--- NOTE | 2024-05-02 12:40 | ECG_ITS ---
[facility]: [facility]24[facility]02 Pat Name: Fred Orosco Department: Room: 260 Gender: Male Outpatient Clerk: : 1975 Requested By: Deangelo Maldonado Order Number: [id number] Simon MD: Khanh Espinoza M.D. Measurements Intervals [place] Rate: 119 P: 50 MO: 168 QRS: 73 QRSD: 106 T: 61 QT: 311 QTc: 439 Interpretive Statements SINUS TACHYCARDIA INCOMPLETE RIGHT BUNDLE BRANCH BLOCK [90+ ms QRS DURATION, TERMINAL R IN V1/V2, 40+ ms S IN I/aVL/V4/V5/V6] Compared to ECG 05/02/2024 09:03:04 Incomplete right bundle-branch block now present Sinus rhythm no longer present Electronically Signed On 05-02-2024 20:25:43 SOCIAL SERVICES COUNSELOR by Khanh Espinoza M.D. [id number]
[2024-05-02 13:59] LABS: Troponin 5 6HR 8.17 ng/L (0-15)
[2024-05-02 14:00] LABS: Troponin 5 6HR Delta -3.83 ng/L (0-12)
[2024-05-02] MEDS: budesonide 0.5 mg/2 mL Neb INHALATION ×2 (14:26→20:50)
[2024-05-02] MEDS: guaiFENesin 600 mg Tablet 1200 MG PO (16:56)
[2024-05-02] MEDS: metoprolol succinate ER (24 HR) 25 mg Tablet PO (20:28)
[2024-05-02] MEDS: methylPREDNISolone sod succ 125 mg/2 mL INJ 60 MG IVP (20:28)
[2024-05-02] MEDS: losartan 50 mg Tablet PO (20:28)
[2024-05-02] MEDS: atorvastatin 40 mg Tablet PO (20:28)
[2024-05-02 20:51] LABS: Glucose Point of Care 403 mg/dL (70-110)
--- NOTE | 2024-05-02 21:00 | PC.NURSE ---
Dr. Chery notified of blood sugar of 403. Patient states that he has no history of diabetes. Patient is receiving IV steroids. She ordered sliding scale Humalog, BID Lantus, and one liter fluid bolus for patient.
[2024-05-02] MEDS: sodium chloride 0.9% 1,000 ML 500 ML IV (21:37)
[2024-05-02] MEDS: insulin glargine 100 units/1 mL 15 UNIT SUBCUT (21:38)
[2024-05-02] MEDS: insulin lispro 100 unit/1 mL 10 UNIT SUBCUT (21:38)
[2024-05-03] VITALS (10 sets, daily range): BP systolic 129–153; BP diastolic 64–78; PULSE 104–117; RESP 16–20; TEMP 36.4–36.7; O2SAT 86–93
[2024-05-03] MEDS: ipratropium-albuterol 3 mL Neb INHALATION ×3 (00:31→08:42)
[2024-05-03 06:22] LABS: Glucose Point of Care 310 mg/dL (70-110)
[2024-05-03 06:52] LABS: Basophils % 0.2 %; Eosinophils % 0.1 %; Lymphocytes % 6.2 %; Mean Corpuscular HGB Conc 30.7 g/dL (30-55); Mean Corpuscular Hemoglobin 27.2 pg (27-33); Mean Corpuscular Volume 88.7 fl (82-101); Mean Platelet Volume 8.9 fL (7.4-10.4); Monocytes # 0.9 10^3/uL (0.2-0.9); Monocytes % 5.7 %; Neutrophils # 14.08 10^3/uL (1.8-7.7); Neutrophils % 86.6 %; Nucleated Red Blood Cells % 0 %; Platelet Count 294 10^3/cmm (157-399); Red Blood Count 4.85 10^6/uL (3.85-5.65); Red Cell Distribution Width 14.1 % (12.1-15.1); White Blood Count 16.23 10^3/uL (3.29-11.43)
[2024-05-03 07:05] LABS: Anion Gap 18.7 (5-19); Blood Urea Nitrogen 17 mg/dL (6-20); Calcium 9.9 mg/dL (8.5-10.5); Carbon Dioxide 19 mmol/L (22-29); Chloride 102 mmol/L (98-107); Creatinine Clr Calc Pharmacy 161.5351; Glomerular Filtration Rate 102.7 mL/min (90-130); Glucose 323 mg/dL (65-115); Osmolality Calculated 294 mOsm/kg (285-295); Potassium 4.7 mmol/L (3.5-5.1); Sodium 135 mmol/L (136-145)
[2024-05-03] MEDS: guaiFENesin 600 mg Tablet 1200 MG PO (08:21)
[2024-05-03] MEDS: isosorbide mononitrate ER 30 mg Tablet PO (08:21)
[2024-05-03] MEDS: aspirin 81 mg EC Tablet PO (08:21)
[2024-05-03] MEDS: insulin lispro 100 unit/1 mL SUBCUT (08:21)
[2024-05-03] MEDS: methylPREDNISolone sod succ 125 mg/2 mL INJ 60 MG IVP (08:22)
[2024-05-03] MEDS: insulin glargine 100 units/1 mL 15 UNIT SUBCUT (08:23)
--- NOTE | 2024-05-03 08:27 | P.DS_ITS ---
Discharge Providers Date of Admission: 05/02/24 11:10 Date of Discharge: May 03, 2024 Attending Provider at Admission: Alireza Salas MD Attending Provider at Discharge: Alireza Salas MD Primary Care Provider: Collins Franco Diagnoses at Discharge Discharge Diagnosis (1) Acute exacerbation of chronic obstructive pulmonary disease: Status: Acute (2) Hyperglycemia: Status: Acute (3) Coronary artery disease: Status: Acute Reason for Visit Reason for Visit: [facility] breathe Hospital Course Hospital Course Patient is a 49-year-old white male with known COPD who recently was treated on as an outpatient for COPD exacerbation with doxycycline and prednisone. He presented to the emergency department with shortness of breath, reporting he was not better. He was given IV steroids, IV Levaquin. Chest x-ray showed no infiltrate. D-dimer was negative. Hemoglobin A1c was done secondary to hyperglycemia, this was elevated at 7.2. He also related to past history of sleep apnea, and CPAP use but had stopped this secondary to loss of insurance in the past. By the following day May 03 he was feeling much better and wishing to go home. Home oxygen evaluation will be done prior to discharge as he needs recertification. He was previously using 3 to 4 L. He will take metformin 500 mg twice daily. Singulair and loratadine were added to his regimen. He will have a prednisone taper, and completed course of Levaquin. He was able to ask questions and agreed with the plan. He will ask his primary care provider regarding his sleep study. Physical Exam Narrative: General Exam no distress Neck is supple Cardiovascular regular rate and rhythm Lungs clear but diminished breath sounds bilaterally Abdomen is soft Extremities no cyanosis clubbing or edema Discharge Data Studies Completed and Pending Completed Studies During Hospitalization Category Date Time Status XR chest 1V portable [id number] Stat Exams 05/02/24 06:20 Completed Radiology Impressions Chest X-Ray 05/02/24 06:20 IMPRESSION: No acute findings. Laboratory Results WBC 16.23 10^3/uL (3.29-11.43) H 05/03/24 05:37 RBC 4.85 10^6/uL (3.85-5.65) 05/03/24 05:37 Hgb 13.20 g/dL (11.27-16.99) 05/03/24 05:37 Hct 43.0 % (37-53) 05/03/24 05:37 MCV 88.7 fl (82-101) D 05/03/24 05:37 MCH 27.2 pg (27-33) 05/03/24 05:37 MCHC 30.7 g/dL (30-55) D 05/03/24 05:37 RDW 14.1 % (12.1-15.1) 05/03/24 05:37 Plt Count 294 10^3/cmm (157-399) 05/03/24 05:37 MPV 8.9 fL (7.4-10.4) 05/03/24 05:37 Neut % (Auto) 86.6 % 05/03/24 05:37 Lymph % (Auto) 6.2 % 05/03/24 05:37 [place] % (Auto) 5.7 % 05/03/24 05:37 Eos % (Auto) 0.1 % 05/03/24 05:37 Baso % (Auto) 0.2 % 05/03/24 05:37 Neut # (Auto) 14.08 10^3/uL (1.8-7.7) H 05/03/24 05:37 Lymph # (Auto) 1.0 10^3/uL (0.8-4.8) 05/03/24 05:37 Fountain # (Auto) 0.9 10^3/uL (0.2-0.9) 05/03/24 05:37 Eos # (Auto) 0.0 10^3/uL (0.0-0.8) 05/03/24 05:37 Baso # (Auto) 0.0 10^3/uL (0.0-0.1) 05/03/24 05:37 Nucleated RBC % (auto) 0 % 05/03/24 05:37 Nucleated RBCs # 0.0 /100WBC 05/03/24 05:37 D-Dimer 0.30 ug/mLFEU (0-0.59) 05/02/24 06:50 Specimen Type Arterial 05/02/24 08:32 Sample Site Radial, right 05/02/24 08:32 ABG pH 7.41 (7.35-7.45) 05/02/24 08:32 ABG pCO2 35.2 mmHg (35-45) 05/02/24 08:32 ABG pO2 62.8 mmHg (80.0-100.0) L 05/02/24 08:32 ABG PO2/FiO2 Ratio 196 05/02/24 08:32 ABG HCO3 22.1 mmol/L (22-26) 05/02/24 08:32 ABG O2 Saturation 92.7 05/02/24 08:32 ABG Base Excess -2.1 mmol/L (-2.0-2.0) L 05/02/24 08:32 Ryan Test Pos 05/02/24 08:32 A-a O2 Gradient 15.9 mmHg (5-10) H 05/02/24 08:32 Hematocrit 44.8 % (42-52) 05/02/24 08:32 Hgb O2 Saturation 90.5 % (95-100) L 05/02/24 08:32 Carboxyhemoglobin 1.5 %THgb (0.4-20.1) 05/02/24 08:32 Methemoglobin 1.0 % (0.4-1.5) 05/02/24 08:32 Total Hemoglobin 14.6 g/dL (14-18) 05/02/24 08:32 Sodium 138.0 mmol/L (131-143) 05/02/24 08:32 Potassium 4.2 mmol/L (3.5-5.0) 05/02/24 08:32 Glucose 183.0 mg/dL (70-115) H 05/02/24 08:32 Ionized Calcium 1.2 mmol/L (1.1-1.4) 05/02/24 08:32 O2 Delivery Device Nc 05/02/24 08:32 O2 Liters/Min 3.0 % 05/02/24 08:32 FiO2 32.0 % 05/02/24 08:32 Computer Engineering Technologist ID glc 05/02/24 08:32 Sodium 135 mmol/L (136-145) L 05/03/24 05:37 Potassium 4.7 mmol/L (3.5-5.1) 05/03/24 05:37 Chloride 102 mmol/L (98-107) 05/03/24 05:37 Carbon Dioxide 19 mmol/L (22-29) L 05/03/24 05:37 Anion Gap 18.7 (5-19) 05/03/24 05:37 BUN 17 mg/dL (6-20) 05/03/24 05:37 Creatinine 0.8 mg/dL (0.7-1.2) 05/03/24 05:37 GFR Calculation 102.7 mL/min (90-130) 05/03/24 05:37 Glucose 323 mg/dL (65-115) H 05/03/24 05:37 POC Glucose 310 mg/dL (70-110) H 05/03/24 06:07 Estimat Average Glucose 160 05/02/24 06:50 Hemoglobin A1c 7.2 % (4.0-6.0) H 05/02/24 06:50 Calculated Osmolality 294 mOsm/kg (285-295) 05/03/24 05:37 Calcium 9.9 mg/dL (8.5-10.5) 05/03/24 05:37 Total Bilirubin 0.5 mg/dL (0.15-1.2) 05/02/24 06:50 AST 16 U/L (0-40) 05/02/24 06:50 ALT 26 U/L (0-41) 05/02/24 06:50 Alkaline Phosphatase 118 U/L (40-130) 05/02/24 06:50 Troponin T Baseline 12 ng/L (0-15) 05/02/24 06:50 Troponin T 120 Minute 8.89 ng/L (0-15) 05/02/24 08:59 Delta Troponin T -3.11 ABS# (0-10) L 05/02/24 08:59 Troponin T Hi Sens 6Hr 8.17 ng/L (0-15) 05/02/24 13:29 Troponin T Hi Sens 6Hr Delta -3.83 ng/L (0-12) L 05/02/24 13:29 Total Protein 6.8 g/dL (6.6-8.7) 05/02/24 06:50 Albumin 4.3 g/dL (3.5-5.2) 05/02/24 06:50 Globulin 2.5 g/dL (1.3-4.6) 05/02/24 06:50 Coronavirus (PCR) Negative (Negative) 05/02/24 06:26 Influenza A (PCR) Negative (Negative) 05/02/24 06:26 Influenza Type B (PCR) Negative (Negative) 05/02/24 06:26 RSV (PCR) Negative (Negative) 05/02/24 06:26 Vitals Last Vital Signs Temp 97.7 F 05/03/24 07:58 Pulse 104 H 05/03/24 07:58 Resp 20 H 05/03/24 07:58 BP 136/78 05/03/24 07:58 Pulse Ox 91 05/03/24 07:58 O2 Del Method Nasal Cannula 05/03/24 07:58 O2 Flow Rate 4 05/03/24 07:58 Discharge Plan Discharge Patient Disposition: Home Condition: Stable Prescriptions: New Allergy Relief (loratadine) 10 mg capsule 10 mg PO DAILY Qty: 30 0RF montelukast [Singulair] 10 mg tablet 10 mg PO DAILY Qty: 30 0RF levofloxacin 750 mg tablet 750 mg PO DAILY 5 Days Qty: 5 0RF metformin 500 mg tablet 500 mg PO BID Qty: 60 0RF prednisone 10 mg tablet 10 mg PO DIRECTED Qty: 30 0RF Rx Instructions: see taper instructions Continued albuterol sulfate [Ventolin HFA] 90 mcg/actuation HFA aerosol inhaler 1 inh inhalation Q6H PRN (Reason: shortness of breath or wheezing) Qty: 8.5 3RF pantoprazole 40 mg tablet,delayed release (DR/EC) 40 mg PO DAILY PRN (Reason: acid reflux) Qty: 60 1RF albuterol sulfate 1.25 mg/3 mL solution for nebulization 1.25 mg inhalation QID PRN (Reason: shortness of breath or wheezing) Qty: 180 1RF aspirin 81 mg Tablet,Delayed Release (Dr/Ec) 81 mg PO DAILY losartan 50 mg tablet 50 mg PO DAILY isosorbide mononitrate 30 mg tablet extended release 24 hr 30 mg PO QAM omeprazole 20 mg capsule,delayed release(DR/EC) 20 mg PO BID metoprolol succinate 25 mg tablet extended release 24 hr 25 mg PO DAILY rosuvastatin 40 mg tablet 40 mg PO DAILY Trelegy Ellipta 100-62.5-25 mcg blister with device 1 inh INHALATION DAILY Discharge Orders: Discharge Order (Routine); Ordered 05/03/24 Ordered By: Alireza Salas Referrals: Collins Franco [Primary Care Provider] - 4-7 days (Consider sleep study as an outpatient) Discharge Diet: Diabetic Discharge Activity: Increase activity as tolerated Patient Instructions: Opioid Safety Activity Restrictions/Additional Instructions: General Medicine as prescribed Follow-up with your primary care provider 3 to 5 days Follow consistent carb diet Prednisone should be 40 mg a day for 3 days, 30 mg a day for 3 days, 20 mg a day for 3 days, 10 mg a day for 3 days and discontinue Return for any concerns Ask your primary care provider regarding his sleep study. Home oxygen evaluation prior to discharge. Discharge Attestations Time Spent in Discharge Care*: greater than 30 min Quality Metrics Clinical Quality Measures [ No reported AMI, CVA or VTE this stay] Coding Level of Care Code 18619 Total time (in minutes) for Discharge: 33 Diagnoses Acute exacerbation of chronic obstructive pulmonary disease J44.1 Hyperglycemia R73.9 Coronary artery disease I25.10
[2024-05-03] MEDS: budesonide 0.5 mg/2 mL Neb INHALATION (08:42)
--- NOTE | 2024-05-03 11:25 | PC.SOCIAL ---
Care coordination Patient has Home o2 eval ordered. CM to room to see patient. He is sitting on EOB and is wearing O2. He reports that he already has O2 @ home with HOME and his son will bring his inogen for transport home. He says he just needs the home O2 eval for recertification. Home O2 eval completed. Order received and faxed to [facility] @ this time to assist w/ O2 recert.
== END 2024-05-03 10:09 | disposition home or self-care (01) ==
LOC: ER 10:06 → MEDSURG 11:11
PROVIDERS: Admitting Provider Internal Medicine; Emergency Provider Family Medicine; PCP Family Medicine; Visit Provider Internal Medicine
DX: J44.1 Chronic obstructive pulmonary disease with (acute) exacerbation (principal); R73.9 Hyperglycemia, unspecified; I25.10 Atherosclerotic heart disease of native coronary artery without angina pectoris; Z79.52 Long term (current) use of systemic steroids; G47.30 Sleep apnea, unspecified; Z79.84 Long term (current) use of oral hypoglycemic drugs; Z99.81 Dependence on supplemental oxygen; Z79.82 Long term (current) use of aspirin; F17.210 Nicotine dependence, cigarettes, uncomplicated; K21.9 Gastro-esophageal reflux disease without esophagitis
CPT/HCPCS: 36415; 36416; 36600; 71045; 80048; 80051; 80053; 82330; 82805; 82962; 83036; 84484; 85025; 85378; 87637; 93005; 94640; 94760; 96361; 96372; 96374; 96375; 99285; G0378; J1650; J1815; J1956; J2919; J7030; J7626

== ENCOUNTER 2024-06-19 07:02 | Inpatient (IN) | payer MEDICAID, SELFPAY ==
[2024-06-19] VITALS (24 sets, daily range): BP systolic 120–174; BP diastolic 69–108; PULSE 97–130; RESP 14–25; TEMP 36.8–37.9; O2SAT 86–94; BMI 35.6
--- NOTE | 2024-06-19 07:25 | XRR_ITS ---
PROCEDURE INFORMATION: Exam: XR Chest Exam date and time: 06/19/2024 7:28 AM Age: 49 years old Clinical indication: Shortness of breath; Additional info: SOB TECHNIQUE: Imaging protocol: Radiologic exam of the chest. Views: 1 view. COMPARISON: CR XR chest 1V portable [id number] 05/02/2024 6:31 AM FINDINGS: Lungs: No consolidation. Pleural spaces: No sizable pleural effusion or pneumothorax. Heart/Mediastinum: No cardiomegaly. Bones/joints: Unremarkable. XR/XR chest 1V portable [id number] IMPRESSION: No acute intrathoracic findings.
--- NOTE | 2024-06-19 07:27 | ECG_ITS ---
[facility]: [facility] Pat Name: Fred Orosco Department: Room: Gender: Male Mva Operator: : 1975 Requested By: Qian Maldonado Order Number: [id number] Reading MD: CHARMAINE YEBOAH Measurements Intervals [place] Rate: 126 P: 48 MD: 154 QRS: 80 QRSD: 99 T: 61 QT: 279 QTc: 404 Interpretive Statements SINUS TACHYCARDIA POSSIBLE RIGHT VENTRICULAR CONDUCTION DELAY [RSR (QR) IN V1/V2] ABNORMAL RHYTHM ECG Compared to ECG 05/02/2024 15:56:54 Incomplete right bundle-branch block no longer present Electronically Signed On 06-19-2024 20:49:26 ALUMNI RELATIONS OFFICER by CHARMAINE YEBOAH [email or web address] [id number]
[2024-06-19] MEDS: ipratropium-albuterol 3 mL Neb INHALATION ×3 (07:41→20:40)
[2024-06-19] MEDS: metoprolol tartrate 1 mg/1 mL SDV 5 mL 5 MG IVP (07:44)
[2024-06-19] MEDS: sodium chloride 0.9% 1,000 ML 999 ML IV (07:44)
[2024-06-19 07:46] LABS: Basophils # 0.1 10^3/uL (0.0-0.1); Basophils % 0.5 %; Eosinophils # 0.1 10^3/uL (0.0-0.8); Eosinophils % 0.6 %; Hematocrit 41.6 % (37-53); Lymphocytes # 0.9 10^3/uL (0.8-4.8); Lymphocytes % 7.1 %; Mean Corpuscular HGB Conc 33.4 g/dL (30-55); Mean Corpuscular Hemoglobin 27.6 pg (27-33); Mean Corpuscular Volume 82.7 fl (82-101); Mean Platelet Volume 8.7 fL (7.4-10.4); Monocytes # 1.3 10^3/uL (0.2-0.9); Monocytes % 9.6 %; Neutrophils # 10.59 10^3/uL (1.8-7.7); Neutrophils % 81.4 %; Nucleated Red Blood Cells % 0 %; Platelet Count 225 10^3/cmm (157-399); Red Blood Count 5.03 10^6/uL (3.85-5.65); Red Cell Distribution Width 14.6 % (12.1-15.1); White Blood Count 13.03 10^3/uL (3.29-11.43)
[2024-06-19] MEDS: methylPREDNISolone sod succ 125 mg/2 mL INJ IVP (07:47)
[2024-06-19] MEDS: acetaminophen 500 mg Tablet 1000 MG PO (07:50)
[2024-06-19 08:08] LABS: Lactic Sepsis W/Reflex 2.5 mmol/L (0.5-2.2)
[2024-06-19 08:09] LABS: Troponin(5th) Baseline 11 ng/L (0-15)
--- NOTE | 2024-06-19 08:12 | ED_ITS ---
HPI - Chest Pain 2 General: Chief Complaint: Upper Respiratory Infection Stated Complaint: n/v/d Time Seen by Provider: 06/19/24 07:16 History of Present Illness: This patient is a 49-year-old presenting with complaints of chest pain and shortness of breath. He has had a cough and chills overnight. He has a history of COPD and has home oxygen. He normally uses 3 to 4 L as needed. He turned his oxygen up to 5 last night because he was running in the low 80s. He says 89-90 is normal for him. His mother had flu last week and he suspects that he now has it as well. He has had a history of severe pneumonia in the past and tells me that that is the cause of his COPD. He also was a smoker for 31 years but has not smoked since his diagnosis of COPD. He also has been told that he has a resting heart rate that is quite high. He was seen by a fats and oils loader at [facility] in the past and started on a medication to regulate his heart rate. He believes that was metoprolol. He has not taken his regular morning medications yet today. He has had nausea, vomiting, diarrhea overnight as well. He said he is coughing up brown and yellow sputum. He is having difficulty coughing it up. His chest pain is described as a tightness and worse with coughing. He says that he was told 20 years ago that he had a heart attack from stress. Since then he has been told that there is no record of that. He does take medication for blood pressure, cholesterol. He has isosorbide mononitrate listed on his medication list as well. He denies urinary symptoms. He does get occasional swelling in his legs and joints but not current. He has not taken anything at home for this. Related Data Home Medications ?Medication ?Instructions ?Recorded ?Confirmed aspirin 81 mg tablet,delayed 81 mg PO DAILY 07/26/23 0 06/19/24 release fluticasone fur. 100 mcg-umeclid 1 inh inhalation JEWELS Y 05/02/24 06/19/24 62.5 mcg-vilant 25 mcg inhalat.powder (Trelegy Ellipta) isosorbide mononitrate 30 mg 30 mg PO QAM 05/02/2402/02 tablet,extended release 24 hr losartan 50 mg tablet 50 mg PO DAILY 05/02/2402/02 metoprolol succinate 25 mg 25 mg PO DAILY 05/02/2402/02 tablet,extended release 24 hr omeprazole 20 mg capsule,delayed 20 mg PO BID 05/02/24 06/19/24 release rosuvastatin 40 mg tablet 40 mg PO DAILY 05/02/2402/02 Previous Rx's ?Medication ?Instructions ?Recorded pantoprazole 40 mg tablet,delayed 40 mg PO DAILY PRN a hernandez reflux #60 07/02/23 release tabs loratadine 10 mg capsule (Allergy 10 mg PO DAILY #30 c aps 05/03/24 Relief (loratadine)) metformin 500 mg tablet 500 mg PO BID #60 tabs 05/03 montelukast 10 mg tablet 10 mg PO DAILY #30 tabs 04/11 09/01 (Singulair) prednisone 10 mg tablet 10 mg PO DIRECTED #30 tab s 05/03/24 Allergies Allergy/AdvReac Type Severity Reaction Status Date / Time Penicillins Allergy Mild ALGY-Fever Verified 05/02/24 05:49 PFSH ED 2 PFSH: Medical History Chest wall pain, chronic Hilar lymphadenopathy Pulmonary nodule less than 1 cm in diameter with moderate to high risk for malignant neoplasm Former heavy cigarette smoker (20-39 per day) Quit smoking 04/22/2023 Chronic GERD COPD (chronic obstructive pulmonary disease) Surgical History No pertinent past surgical history Family History Father Heart disease Mother Heart disease Diabetes Gout Polio Other Cancer Social History Smoking and tobacco/nicotine status: former use of tobacco/nicotine (2 - 21/2 packs per day) Alcohol intake: former Substance/Drug Use: never Adopted: No service: No Current occupational exposures/hazards: Yes 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 Current gender identity: Male Physical Exam 2 HENMT: HEAD & SCALP: normal to inspection FACE & SINUS: normal facial exam Eye: GENERAL EYE: appearance normal, both eyes and all related structures Neck/C-Spine: COMMON NORMALS: supple and no meningeal signs Chest: CHEST: Yes Symmetrical chest wall rise Resp: EFFORT & INSPECTION: Yes symmetric chest movement, Yes tachypneic and Yes labored (Slightly) AUSCULTATION: wheezes (Mild, bilateral) Cardio: COMMON NORMALS: regular rhythm, S1 normal heart sound present and S2 normal heart sound present RATE: tachycardic (Regular) RHYTHM: regular rhythm HEART SOUNDS: S1 normal heart sound present, S2 normal heart sound present and no murmurs GI: COMMON NORMALS: Normal to inspection, nondistended, normoactive bowel sounds present, Soft to palpation and non-tender INSPECTION: Yes normal to inspection AUSCULTATION: Yes normoactive bowel sounds PALPATION: Yes Soft to palpation Back/Pelvis: COMMON NORMALS: thoracic and lumbar spine normal to inspection Extremity: COMMON NORMALS: normal to inspection NARRATIVE EXTREMITY EXAM: No edema Neuro: COMMON NORMALS: moves all extremities, no focal motor deficits and no sensory deficits noted MENINGEAL SIGNS: Yes no meningeal signs Psych: COMMON NORMALS: mental status grossly normal, cooperative and normal affect Skin: COMMON NORMALS: no rashes or lesions noted and turgor normal GENERAL SKIN EXAM: no rashes or lesions noted and turgor normal Course 2 Vital Signs: Vital signs: Vital Signs Temperature 100.2 F H 06/19/24 07:08 Pulse Rate 121 H 06/19/24 07:43 Respiratory Rate 18 06/19/24 07:43 Blood Pressure 162/97 06/19/24 07:08 Pulse Oximetry 90 06/19/24 07:43 Oxygen Delivery Me thod Nasal Cannula 06/19/24 07:43 Oxygen Flow Rate 3.5 06/19/24 07:43 MDM - Chest Pain Medical Decision Making This patient has a history of COPD and tachycardia. On presentation his heart rate was 130s. After treatment with resting on the stretcher his heart rate stabilized around 115. Blood pressure initially was somewhat elevated but that too has improved with resting on the stretcher. He is now 130s over 90. Pulse ox on his normal 3-1/2 L of oxygen is 89-90 which he says is his baseline. Chest x-ray was read as negative by the radiologist however I think that there might be some infiltrate in the right base. He has had an exposure to flu. This may be a viral pneumonia but given his history could also be a secondary bacterial infection and antibiotics are probably reasonable. Lactic was also sent in case there is evidence of sepsis. Cardiac workup was undertaken as well as he likely has a cardiac history that is more extensive than what he tells me. His initial EKG was sinus tachycardia however he appears to have some irregularity on that monitor and it is possible that he may have MAT or intermittent A-fib. This will need to be monitored. He was given albuterol and ipratropium nebulizer treatment. He was also given steroids due to his COPD history. Cautious fluids were given as well as he does report some leg swelling and I do want to rule out CHF prior to giving much fluid. Patient improved somewhat with nebulizer and some steroids. He continues to be tachycardic around 05 20- 15. Oxygen varies between about 86% and 92% on his baseline oxygen. Given his significant lung history and baseline hypoxia I think it is advisable for him to be admitted as he will not tolerate much worsening of his condition. Tamiflu was started. I have also ordered cefepime and azithromycin to cover possible pneumonia. He was given some IV fluids. I spoke to Dr. Dangelo who will admit to the hospital. Lab Data 06/19/24 07:37 06/19/24 07:37 Radiology Impressions Chest X-Ray 06/19/24 07:25 IMPRESSION: No acute intrathoracic findings. Laboratory Results WBC 13.03 10^3/uL (3.29-11.43) H 06/19/24 07:37 RBC 5.03 10^6/uL (3.85-5.65) 06/19/24 07:37 Hgb 13.90 g/dL (11.27-16.99) 06/19/24 07:37 Hct 41.6 % (37-53) 06/19/24 07:37 MCV 82.7 fl (82-101) 06/19/24 07:37 MCH 27.6 pg (27-33) 06/19/24 07:37 MCHC 33.4 g/dL (30-55) 06/19/24 07:37 RDW 14.6 % (12.1-15.1) 06/19/24 07:37 Plt Count 225 10^3/cmm (157-399) 06/19/24 07:37 MPV 8.7 fL (7.4-10.4) 06/19/24 07:37 Neut % (Auto) 81.4 % 06/19/24 07:37 Lymph % (Auto) 7.1 % 06/19/24 07:37 [place]aden % (Auto) 9.6 % 06/19/24 07:37 Eos % (Auto) 0.6 % 06/19/24 07:37 Baso % (Auto) 0.5 % 06/19/24 07:37 Neut # (Auto) 10.59 10^3/uL (1.8-7.7) H 06/19/24 07:37 Lymph # (Auto) 0.9 10^3/uL (0.8-4.8) 06/19/24 07:37 [place]aden # (Auto) 1.3 10^3/uL (0.2-0.9) H 06/19/24 07:37 Eos # (Auto) 0.1 10^3/uL (0.0-0.8) 06/19/24 07:37 Baso # (Auto) 0.1 10^3/uL (0.0-0.1) 06/19/24 07:37 Nucleated RBC % (auto) 0 % 06/19/24 07:37 Nucleated RBCs # 0.0 /100WBC 06/19/24 07:37 Sodium 138 mmol/L (136-145) 06/19/24 07:37 Potassium 4.2 mmol/L (3.5-5.1) 06/19/24 07:37 Chloride 103 mmol/L (98-107) 06/19/24 07:37 Carbon Dioxide 21 mmol/L (22-29) L 06/19/24 07:37 Anion Gap 18.2 (5-19) 06/19/24 07:37 BUN 13 mg/dL (6-20) 06/19/24 07:37 Creatinine 0.8 mg/dL (0.7-1.2) 06/19/24 07:37 GFR Calculation 102.7 mL/min (90-130) 06/19/24 07:37 Glucose 178 mg/dL (65-115) H 06/19/24 07:37 Calculated Osmolality 291 mOsm/kg (285-295) 06/19/24 07:37 Lactic Acid 2.5 mmol/L (0.5-2.2) H 06/19/24 07:37 Lactic Acid (Sepsis) 2.1 mmol/L (0.5-2.2) 06/19/24 09:23 Calcium 9.4 mg/dL (8.5-10.5) 06/19/24 07:37 Magnesium 1.7 mg/dL (1.7-2.3) 06/19/24 07:37 Total Bilirubin 0.4 mg/dL (0.15-1.2) 06/19/24 07:37 AST 24 U/L (0-40) 06/19/24 07:37 ALT 28 U/L (0-41) 06/19/24 07:37 Alkaline Phosphatase 106 U/L (40-130) 06/19/24 07:37 Troponin T Baseline 11 ng/L (0-15) 06/19/24 07:37 Troponin T 120 Minute 11.67 ng/L (0-15) 06/19/24 09:23 Delta Troponin T 0.67 ABS# (0-10) 06/19/24 09:23 NT-Pro-B Natriuret Pep < 36 pg/mL (0-125) 06/19/24 07:37 Total Protein 6.8 g/dL (6.6-8.7) 06/19/24 07:37 Albumin 4.5 g/dL (3.5-5.2) 06/19/24 07:37 Globulin 2.3 g/dL (1.3-4.6) 06/19/24 07:37 Coronavirus (PCR) Negative (Negative) 06/19/24 07:14 Influenza A (PCR) Positive (Negative) 06/19/24 07:14 Influenza Type B (PCR) Negative (Negative) 06/19/24 07:14 RSV (PCR) Negative (Negative) 06/19/24 07:14 All radiology interpretation(s) finalized by discharge Discharge Plan Discharge Patient Disposition: Admitted As Inpatient Admit Provider: Monico Dangelo Clinical Impression: Acute exacerbation of chronic obstructive pulmonary disease, Influenza, Hypoxia Condition: Stable Coding Level of Care Code ED Drivability Technician for Cayden Olivares
[2024-06-19 08:19] LABS: Alanine Aminotransferase 28 U/L (0-41); Albumin Level 4.5 g/dL (3.5-5.2); Alkaline Phosphatase 106 U/L (40-130); Anion Gap 18.2 (5-19); Aspartate Amino Transferase 24 U/L (0-40); Blood Urea Nitrogen 13 mg/dL (6-20); Calcium 9.4 mg/dL (8.5-10.5); Carbon Dioxide 21 mmol/L (22-29); Chloride 103 mmol/L (98-107); Creatinine Clr Calc Pharmacy 161.7929; Globulin 2.3 g/dL (1.3-4.6); Glomerular Filtration Rate 102.7 mL/min (90-130); Glucose 178 mg/dL (65-115); Magnesium 1.7 mg/dL (1.7-2.3); NT Pro B Type Natriuretic Pept < 36 pg/mL (0-125); Osmolality Calculated 291 mOsm/kg (285-295); Potassium 4.2 mmol/L (3.5-5.1); Sodium 138 mmol/L (136-145); Total Bilirubin 0.4 mg/dL (0.15-1.2); Total Protein 6.8 g/dL (6.6-8.7)
[2024-06-19 08:57] LABS: Influenza A POSITIVE (Negative); Influenza B NEGATIVE (Negative); Respiratory Syncytial Virus Ce NEGATIVE (Negative); SARS-CoV-2 PCR NEGATIVE (Negative)
[2024-06-19 09:31] LABS: Reflex Lactate Order REFLEX LACTIC ORDERD
--- NOTE | 2024-06-19 09:33 | ECG_ITS ---
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
[2024-06-19 09:47] LABS: Troponin 5 2HR 11.67 ng/L (0-15); Troponin 5 2HR Delta 0.67 ABS# (0-10)
[2024-06-19 09:49] LABS: Lactic Acid level (Lactate) 2.1 mmol/L (0.5-2.2)
--- NOTE | 2024-06-19 11:08 | P.HP_ITS ---
Providers/Chief Complaint 2 Admitting Physician: Monico Dangelo MD Primary Care Provider: Collins Franco Chief Complaint: n/v/d History of Present Illness Fred Orosco is a 49 year old male with a past medical history of COPD, hypertension, hyperlipidemia, type 2 diabetes mellitus, who presents to [facility] for shortness of breath. Patient tells me that he had taken his mother up to [place] for a surgery and she had been exposed to the fluid so the surgery got canceled Thursday night, he started noticing that he had a sore throat, shortness of breath, cough. His symptoms progressed on Thursday with persistent cough, shortness of breath fatigue, malaise chills. This morning his symptoms were severe enough that he had had to come to the emergency room. During our discussion, his O2 sats do drop into the high 80s, currently on 4 L, tachycardic heart rates in 120s, complaining of chills, fevers, does report nausea, does report vomiting does report diarrhea. Review of Systems 2 Const: Denies: fever(s) or chills Resp: Reports: dyspnea GI: Denies: abdominal pain Medications/Allergies Home Medications ?Medication ?Instructions ?Recorded ?Confirmed ?Last Taken ?Type pantoprazole 40 mg tablet,delayed 40 mg PO DAILY PRN a hernandez reflux #60 07/02/23 06/19/24 Unknown Rx release tabs aspirin 81 mg tablet,delayed 81 mg PO DAILY 07/26/23 0 06/19/24 08/07/23 History release 81 mg fluticasone fur. 100 mcg-umeclid 1 inh inhalation JEWELS Y 05/02/24 06/19/24 Unknown History 62.5 mcg-vilant 25 mcg inhalat.powder (Trelegy Ellipta) isosorbide mononitrate 30 mg 30 mg PO QAM 05/02/2402/02 Unknown History tablet,extended release 24 hr losartan 50 mg tablet 50 mg PO DAILY 05/02/2402/02 Unknown History metoprolol succinate 25 mg 25 mg PO DAILY 05/02/2402/02 Unknown History tablet,extended release 24 hr omeprazole 20 mg capsule,delayed 20 mg PO BID 05/02/24 06/19/24 Unknown History release rosuvastatin 40 mg tablet 40 mg PO DAILY 05/02/24/02/02 Unknown History loratadine 10 mg capsule (Allergy 10 mg PO DAILY #30 c aps 05/03/24 06/19/24 Unknown Rx Relief (loratadine)) metformin 500 mg tablet 500 mg PO BID #60 tabs 05/0306/19/24 Unknown Rx montelukast 10 mg tablet 10 mg PO DAILY #30 tabs 04/1106/19/24 Unknown Rx (Singulair) prednisone 10 mg tablet 10 mg PO DIRECTED #30 tab s 05/03/24 06/19/24 Unknown Rx Allergies Allergy/AdvReac Type Severity Reaction Status Date / Time Penicillins Allergy Mild ALGY-Fever Verified 05/02/24 05:49 PFSH Acute 2 PFSH: Medical History Chest wall pain, chronic Hilar lymphadenopathy Pulmonary nodule less than 1 cm in diameter with moderate to high risk for malignant neoplasm Former heavy cigarette smoker (20-39 per day) Quit smoking 04/22/2023 Chronic GERD COPD (chronic obstructive pulmonary disease) Surgical History No pertinent past surgical history Family History Father Heart disease Mother Heart disease Diabetes Gout Polio Other Cancer Social History Smoking and tobacco/nicotine status: former use of tobacco/nicotine (2 - 21/2 packs per day) Alcohol intake: former Substance/Drug Use: never Adopted: No service: No Current occupational exposures/hazards: Yes Previous occupational history: [employer] Current gender identity: Male Vitals/I&O/Wt Last Vital Signs Temp 100.2 F H 06/19/24 07:08 Pulse 121 H 06/19/24 07:43 Resp 18 06/19/24 07:43 BP 162/97 06/19/24 07:08 Pulse Ox 90 06/19/24 07:43 O2 Del Method Nasal Cannula 06/19/24 07:43 O2 Flow Rate 3.5 06/19/24 07:43 Weight last 48 hrs Weight 129.274 kg Physical Exam 2 Const: COMMON NORMALS: no acute distress and patient oriented x3 Eye: COMMON NORMALS: Equal, round and reactive pupils present and EOMs intact bilaterally Neck/C-Spine: COMMON NORMALS: no JVD Resp: COMMON NORMALS: normal respiratory effort, No retractions and No use of accessory muscles AUSCULTATION: crackles and wheezes Cardio: COMMON NORMALS: no JVD, regular rate, regular rhythm, S1 normal heart sound present and S2 normal heart sound present RATE: tachycardic RHYTHM: regular rhythm HEART SOUNDS: S1 normal heart sound present and S2 normal heart sound present GI: COMMON NORMALS: Normal to inspection, nondistended, normoactive bowel sounds present, Soft to palpation and non-tender Extremity: COMMON NORMALS: no pedal edema Neuro: COMMON NORMALS: patient oriented x3, CN's II-XII intact bilaterally and moves all extremities Psych: COMMON NORMALS: mental status grossly normal Data 06/19/24 07:37 06/19/24 07:37 Micro: Microbiology 06/19/24 09:20 Blood Culture - Preliminary Blood SPECIMEN COLLECTED 06/19/24 09:23 Blood Culture - Preliminary Blood SPECIMEN COLLECTED A&P Assessment and plan (1) Acute hypoxic respiratory failure: (2) Community acquired pneumonia: Qualifiers: Laterality: left Lung location: lower lobe of lung Qualified Code(s): J18.9 - Pneumonia, unspecified organism (3) Acute exacerbation of chronic obstructive pulmonary disease: (4) Hypoxia: (5) Influenza: (6) Sepsis: Qualifiers: Sepsis type: sepsis due to unspecified organism Sepsis acute organ dysfunction status: with acute organ dysfunction Severe sepsis acute organ dysfunction type: acute respiratory failure Acute respiratory failure type: w ith hypoxia Severe sepsis shock status: without septic shock Qualified Code(s): A41.9 - Sepsis, unspecified organism; R65.20 - Severe sepsis without septic shock; J96.01 - Acute respiratory failure with hypoxia Plan Acute hypoxic respiratory failure -Multifactorial -COPD exacerbation -Influenza -Concern for second bacterial pneumonia Plan -CT angio of the chest -Pro-John, CRP -Blood cultures -Sputum culture -Status post cefepime azithromycin, Solu-Medrol, Tamiflu -Continue azithromycin -Which to Rocephin -Switch to prednisone 40 mg daily -Continue Tamiflu -Telemetry monitoring -Monitor respiratory status closely -Full code -Lovenox for DVT prophylaxis Sepsis, sepsis features met, given tachycardia, tachypnea, febrile, Type 2 diabetes mellitus, low-dose sliding scale PDMP PDMP Reviewed: Not Reviewed Attestations 2 Medical Necessity Statement*: Patient requires hospitalization, inpatient, greater than 2 minutes for acute hypoxic respiratory failure secondary to COPD exacerbation, pneumonia, influenza Diagnoses Acute hypoxic respiratory failure J96.01 Community acquired pneumonia J18.9 Laterality: left Lung location: lower lobe of lung Acute exacerbation of chronic obstructive pulmonary disease J44.1 Hypoxia R09.02 Influenza J11.1 Sepsis with acute hypoxic respiratory failure without septic shock, due to unspecified organism A41.9; R65.20; J96.01 Sepsis type: sepsis due to unspecified organism Sepsis acute organ dysfunction status: with acute organ dysfunction Severe sepsis acute organ dysfunction type: acute respiratory failure Acute respiratory failure type: with hypoxia Severe sepsis shock status: without septic shock
[2024-06-19 11:39] LABS: Procalcitonin 0.14 ng/mL (0-0.5)
[2024-06-19] MEDS: cefepime 2,000 mg SDV 2000 MG IVP (12:42)
[2024-06-19] MEDS: oseltamivir phosphate 75 mg Capsule PO ×2 (12:43→22:01)
[2024-06-19] MEDS: AZITHROMYCIN ADD-Vantage 500 MG in 0.9% NaCl ADD-Vantage 250 ML 250 MG IV ×2 (12:55→12:56)
[2024-06-19 14:02] LABS: Troponin 5 6HR 6.89 ng/L (0-15)
[2024-06-19 14:07] LABS: Troponin 5 6HR Delta -4.11 ng/L (0-12)
--- NOTE | 2024-06-19 14:38 | ECG_ITS ---
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1975 Requested By: Qian Maldonado Order Number: [id number] Reading MD: CHARMAINE YEBOAH Measurements Intervals [place] Rate: 103 P: 95 CO: 175 QRS: 71 QRSD: 104 T: 54 QT: 312 QTc: 410 Interpretive Statements SINUS TACHYCARDIA INCOMPLETE RIGHT BUNDLE BRANCH BLOCK [90+ ms QRS DURATION, TERMINAL R IN V1/V2, 40+ ms S IN I/aVL/V4/V5/V6] MODERATE ST DEPRESSION [0.05+ mV ST DEPRESSION] Compared to ECG 06/19/2024 09:33:18 Incomplete right bundle-branch block now present ST (T wave) deviation now present Electronically Signed On 06-19-2024 21:06:08 WEBSITE/BLOG EDITOR by CHARMAINE YEBOAH [email or web address]
--- NOTE | 2024-06-19 15:20 | CTR_ITS ---
PROCEDURE INFORMATION: Exam: CTA Chest With Contrast Exam date and time: 06/19/2024 3:38 PM Age: 49 years old Clinical indication: Shortness of breath; Additional info: SOB TECHNIQUE: Imaging protocol: Computed tomographic angiography of the chest with contrast. Exam focused on the arteries. 3D rendering (Not supervised by radiologist): MIP and/or 3D reconstructed images were created by the technologist. Radiation optimization: All CT scans at this facility use at least one of these dose optimization techniques: automated exposure control; mA and/or kV adjustment per patient size (includes targeted exams where dose is matched to clinical indication); or iterative reconstruction. Contrast material: OMNI 350; Contrast volume: 100 ml; Contrast route: INTRAVENOUS (IV); COMPARISON: CT angio chest PE protcl [id number] 08/07/2023 9:49 PM RADIATION DOSE METRICS: Total DLP (mGy-cm): 1592.2 FINDINGS: Pulmonary arteries: Normal. No pulmonary emboli. Aorta: Unremarkable. No aortic aneurysm. No aortic dissection. Lungs: Severe emphysematous changes throughout both lungs with an upper lobe predominance. Pleural spaces: Unremarkable. No pneumothorax. No pleural effusion. Heart: Unremarkable. No cardiomegaly. No pericardial effusion. Lymph nodes: Unremarkable. No enlarged lymph nodes. Spleen: The spleen is enlarged measuring up to 17.8 cm in length. Bones/joints: Unremarkable. No acute fracture. Soft tissues: Unremarkable. CT/CT angio chest PE protcl [id number] IMPRESSION: No focal consolidation, pleural effusion or suspicious pulmonary nodules or masses.
[2024-06-19 15:47] LABS: Estmated Average Glucose 157; Hemoglobin A1C 7.1 % (4.0-6.0)
[2024-06-19] MEDS: enoxaparin 40 mg/0.4 mL Syringe SUBCUT (17:20)
[2024-06-19] MEDS: pantoprazole 40 mg SDV IVP (17:21)
[2024-06-19] MEDS: insulin lispro 100 unit/1 mL SUBCUT ×2 (17:21→19:14)
[2024-06-19 17:26] LABS: Glucose Point of Care 317 mg/dL (70-110)
[2024-06-19 19:13] LABS: Glucose Point of Care 293 mg/dL (70-110)
[2024-06-19 20:36] LABS: Glucose Point of Care 363 mg/dL (70-110)
[2024-06-19] MEDS: budesonide 0.5 mg/2 mL Neb INHALATION (20:40)
[2024-06-20] VITALS (13 sets, daily range): BP systolic 100–126; BP diastolic 62–67; PULSE 92–104; RESP 16–22; TEMP 36.5–36.7; O2SAT 91–98
[2024-06-20] MEDS: ipratropium-albuterol 3 mL Neb INHALATION ×5 (00:54→15:04)
[2024-06-20 05:39] LABS: Basophils % 0.3 %; Hematocrit 38.4 % (37-53); Lymphocytes # 1.1 10^3/uL (0.8-4.8); Lymphocytes % 9.3 %; Mean Corpuscular HGB Conc 33.6 g/dL (30-55); Mean Corpuscular Hemoglobin 28.1 pg (27-33); Mean Corpuscular Volume 83.7 fl (82-101); Mean Platelet Volume 9.1 fL (7.4-10.4); Monocytes # 1.4 10^3/uL (0.2-0.9); Monocytes % 11.4 %; Neutrophils # 9.24 10^3/uL (1.8-7.7); Neutrophils % 77.7 %; Nucleated Red Blood Cells % 0 %; Platelet Count 207 10^3/cmm (157-399); Red Blood Count 4.59 10^6/uL (3.85-5.65); Red Cell Distribution Width 14.8 % (12.1-15.1); White Blood Count 11.88 10^3/uL (3.29-11.43)
[2024-06-20] MEDS: isosorbide mononitrate ER 30 mg Tablet PO (06:02)
[2024-06-20 06:04] LABS: Alanine Aminotransferase 22 U/L (0-41); Alkaline Phosphatase 91 U/L (40-130); Anion Gap 17.2 (5-19); Aspartate Amino Transferase 14 U/L (0-40); Blood Urea Nitrogen 13 mg/dL (6-20); Carbon Dioxide 22 mmol/L (22-29); Chloride 106 mmol/L (98-107); Globulin 2.7 g/dL (1.3-4.6); Glomerular Filtration Rate 119.9 mL/min (90-130); Glucose 241 mg/dL (65-115); Magnesium 2.1 mg/dL (1.7-2.3); Osmolality Calculated 300 mOsm/kg (285-295); Phosphorus 3.8 mg/dL (2.5-4.5); Potassium 4.2 mmol/L (3.5-5.1); Sodium 141 mmol/L (136-145); Total Bilirubin 0.3 mg/dL (0.15-1.2); Total Protein 6.7 g/dL (6.6-8.7)
[2024-06-20 06:47] LABS: Glucose Point of Care 241 mg/dL (70-110)
[2024-06-20] MEDS: budesonide 0.5 mg/2 mL Neb INHALATION (07:44)
[2024-06-20] MEDS: aspirin 81 mg EC Tablet PO (08:10)
[2024-06-20] MEDS: insulin lispro 100 unit/1 mL SUBCUT ×2 (08:10→11:54)
[2024-06-20] MEDS: predniSONE 20 mg Tablet 40 MG PO (08:10)
[2024-06-20] MEDS: metoprolol succinate ER (24 HR) 25 mg Tablet PO (08:10)
[2024-06-20] MEDS: oseltamivir phosphate 75 mg Capsule PO (08:10)
[2024-06-20] MEDS: atorvastatin 40 mg Tablet 80 MG PO (08:10)
[2024-06-20] MEDS: losartan 50 mg Tablet PO (08:13)
--- NOTE | 2024-06-20 10:11 | PC.CHAP ---
Pastoral Care Encounter/Spiritual Assessment Type of Contact [] Declined alumni coordinator visit [] Patient/Family/Request visit [] Outpatient visit [] Follow-up visit [] Physician referral [] Code/Alert [x] Routine visit [] Staff referral [] Actively dying [] Patient sleeping [] Family support [] [] Out of room [] Palliative care [] [] Receiving care in room [] Pre-surgical visit [] Trauma [] Long length of stay [] ICU visit [] Other: Relational/Emotional Strength [] Patient feels connected with others/family/visitors/staff [] Distress [] Loneliness/isolation [] Abandonment Spirituality of Patient [] Person of Mariella [] Attends Zoroastrianism of their Mariella [] Believes in Prayer [] Reads Bible or Congregation materials [] There are Spiritual issues to be addressed Administrative Processor Interventions [] Prayer [] Active listening [] Non-anxious presence [] Spiritual/emotional support [] Crisis/trauma care [] Spiritual counseling [] Bereavement support [] Provided bereavement packet [] Provided Bible/devotional materials [] Provided toy/stuffed animal, coloring book to patient or family member [] Provided Communion [] Anointing/Ralph [] Salvation [] Completed spiritual assessment [] Other: Impact on Illness or Injury [] Angry [] Fearful [] Anxious [] Often cries [] Exhaustion [] Unable to work [] Unable to attend catholic [] Unable to walk/stand [] Unable to read [] Unable to drive [] Unable to eat/drink [] Unable to sleep [] Unable to be with family [] Patient intubated [] Other: Summary precaution Time spent with patient
[2024-06-20 11:28] LABS: Glucose Point of Care 245 mg/dL (70-110)
[2024-06-20] MEDS: cefTRIAXone 1,000 mg SDV 1000 MG IVP (13:00)
[2024-06-20] MEDS: AZITHROMYCIN ADD-Vantage 500 MG in 0.9% NaCl ADD-Vantage 250 ML 250 MG IV (13:01)
--- NOTE | 2024-06-20 15:46 | PC.NURSE ---
Transmission error with medications sent to the pharmacy. I called and gave verbal orders for Cefuroxime, Oseltamivir, and Prednisone to [facility] [address] [place].
--- NOTE | 2024-06-29 18:56 | PM.DCS ---
Discharge Providers Date of Admission: 06/19/24 10:21 Date of Discharge: June 20, 2024 Attending Provider at Admission: Monico Dangelo MD Attending Provider at Discharge: Saundra Santana Primary Care Provider: Collins Franco Diagnoses at Discharge Discharge Diagnosis (1) Acute hypoxic respiratory failure: Status: Inactive (2) Community acquired pneumonia: Status: Resolved Qualifiers: Laterality: left Lung location: lower lobe of lung Qualified Code(s): J18.9 - Pneumonia, unspecified organism (3) Acute exacerbation of chronic obstructive pulmonary disease: Status: Resolved (4) Hypoxia: Status: Acute (5) Influenza: Status: Acute (6) Sepsis: Status: Resolved Qualifiers: Sepsis type: sepsis due to unspecified organism Sepsis acute organ dysfunction status: with acute organ dysfunction Severe sepsis acute organ dysfunction type: acute respiratory failure Acute respiratory failure type: with hypoxia Severe sepsis shock status: without septic shock Qualified Code(s): A41.9 - Sepsis, unspecified organism; R65.20 - Severe sepsis without septic shock; J96.01 - Acute respiratory failure with hypoxia Reason for Visit Reason for Visit: n/v/d Brief History: 49 year old male with a past medical history of COPD, hypertension, hyperlipidemia, type 2 diabetes mellitus, who presents to [facility] for shortness of breath. Patient tells me that he had taken his mother up to [place] for a surgery and she had been exposed to the flu so the surgery got canceled Thursday night, he started noticing that he had a sore throat, shortness of breath, cough. His symptoms progressed on Thursday with persistent cough, shortness of breath fatigue, malaise chills. This morning his symptoms were severe enough that he had had to come to the emergency room. During our discussion, his O2 sats do drop into the high 80s, currently on 4 L, tachycardic heart rates in 120s, complaining of chills, fevers, does report nausea, does report vomiting does report diarrhea Hospital Course Hospital Course Upon admission to the hospital additional work up included a Chest x-ray did not show any acute cardiothoracic abnormality. CTA of chest also did not show any acute cardiopulmonary abnormality including no evidence of pulmonary embolism, consolidation or pleural effusion. He was started on Tamiflu. He was also treated with cefepime initially which was transition to azithromycin. And also was given Rocephin. Transition from IV steroids to prednisone 40 mg daily. Leukocytosis had improved from 13-11. He did not have any fever or chills. He was wanting to discharge home. Home O2 evaluation was performed and patient was at 4 L which was apparently his baseline. Patient already had home oxygen. He was discharged with instructions to follow-up with his primary care physician for final results on his cultures. Patient verbalized understanding. Physical Exam Const: COMMON NORMALS: no acute distress and patient oriented x3 Eye: COMMON NORMALS: Equal, round and reactive pupils present and EOMs intact bilaterally PUPIL: Yes Equal, round and reactive pupils present Neck/C-Spine: COMMON NORMALS: no JVD Resp: COMMON NORMALS: normal respiratory effort, No retractions, No use of accessory muscles and clear to auscultation bilaterally AUSCULTATION: clear to auscultation bilaterally Cardio: COMMON NORMALS: no JVD, regular rate, regular rhythm, S1 normal heart sound present and S2 normal heart sound present RATE: regular rate and tachycardic RHYTHM: regular rhythm HEART SOUNDS: S1 normal heart sound present and S2 normal heart sound present GI: COMMON NORMALS: Normal to inspection, nondistended, normoactive bowel sounds present, Soft to palpation and non-tender PALPATION: Yes Soft to palpation Extremity: COMMON NORMALS: no pedal edema Neuro: COMMON NORMALS: patient oriented x3, CN's II-XII intact bilaterally and moves all extremities Psych: COMMON NORMALS: mental status grossly normal Discharge Data Studies Completed and Pending Completed Studies During Hospitalization Category Date Time Status CT angio chest PE protcl [id number] Routine Cat Scan 06/19/24 15:20 Completed XR chest 1V portable [id number] Stat Exams 06/19/24 07:25 Completed Radiology Impressions Chest X-Ray 06/19/24 07:25 IMPRESSION: No acute intrathoracic findings. Chest CTA 06/19/24 15:20 IMPRESSION: No focal consolidation, pleural effusion or suspicious pulmonary nodules or masses. Laboratory Results WBC 11.88 10^3/uL (3.29-11.43) H 06/20/24 05:11 RBC 4.59 10^6/uL (3.85-5.65) 06/20/24 05:11 Hgb 12.90 g/dL (11.27-16.99) 06/20/24 05:11 Hct 38.4 % (37-53) 06/20/24 05:11 MCV 83.7 fl (82-101) 06/20/24 05:11 MCH 28.1 pg (27-33) 06/20/24 05:11 MCHC 33.6 g/dL (30-55) 06/20/24 05:11 RDW 14.8 % (12.1-15.1) 06/20/24 05:11 Plt Count 207 10^3/cmm (157-399) 06/20/24 05:11 MPV 9.1 fL (7.4-10.4) 06/20/24 05:11 Neut % (Auto) 77.7 % 06/20/24 05:11 Lymph % (Auto) 9.3 % 06/20/24 05:11 [place] % (Auto) 11.4 % 06/20/24 05:11 Eos % (Auto) 0.0 % 06/20/24 05:11 Baso % (Auto) 0.3 % 06/20/24 05:11 Neut # (Auto) 9.24 10^3/uL (1.8-7.7) H 06/20/24 05:11 Lymph # (Auto) 1.1 10^3/uL (0.8-4.8) 06/20/24 05:11 [place] # (Auto) 1.4 10^3/uL (0.2-0.9) H 06/20/24 05:11 Eos # (Auto) 0.0 10^3/uL (0.0-0.8) 06/20/24 05:11 Baso # (Auto) 0.0 10^3/uL (0.0-0.1) 06/20/24 05:11 Nucleated RBC % (auto) 0 % 06/20/24 05:11 Nucleated RBCs # 0.0 /100WBC 06/20/24 05:11 Sodium 141 mmol/L (136-145) 06/20/24 05:11 Potassium 4.2 mmol/L (3.5-5.1) 06/20/24 05:11 Chloride 106 mmol/L (98-107) 06/20/24 05:11 Carbon Dioxide 22 mmol/L (22-29) 06/20/24 05:11 Anion Gap 17.2 (5-19) 06/20/24 05:11 BUN 13 mg/dL (6-20) 06/20/24 05:11 Creatinine 0.7 mg/dL (0.7-1.2) 06/20/24 05:11 GFR Calculation 119.9 mL/min (90-130) 06/20/24 05:11 Glucose 241 mg/dL (65-115) H 06/20/24 05:11 POC Glucose 245 mg/dL (70-110) H 06/20/24 11:20 Estimat Average Glucose 157 06/19/24 07:37 Hemoglobin A1c 7.1 % (4.0-6.0) H 06/19/24 07:37 Calculated Osmolality 300 mOsm/kg (285-295) H 06/20/24 05:11 Lactic Acid 2.5 mmol/L (0.5-2.2) H 06/19/24 07:37 Lactic Acid (Sepsis) 2.1 mmol/L (0.5-2.2) 06/19/24 09:23 Calcium 9.0 mg/dL (8.5-10.5) 06/20/24 05:11 Phosphorus 3.8 mg/dL (2.5-4.5) 06/20/24 05:11 Magnesium 2.1 mg/dL (1.7-2.3) 06/20/24 05:11 Total Bilirubin 0.3 mg/dL (0.15-1.2) 06/20/24 05:11 AST 14 U/L (0-40) 06/20/24 05:11 ALT 22 U/L (0-41) 06/20/24 05:11 Alkaline Phosphatase 91 U/L (40-130) 06/20/24 05:11 Troponin T Baseline 11 ng/L (0-15) 06/19/24 07:37 Troponin T 120 Minute 11.67 ng/L (0-15) 06/19/24 09:23 Delta Troponin T 0.67 ABS# (0-10) 06/19/24 09:23 Troponin T Hi Sens 6Hr 6.89 ng/L (0-15) 06/19/24 13:30 Troponin T Hi Sens 6Hr Delta -4.11 ng/L (0-12) L 06/19/24 13:30 C-Reactive Protein 16.0 mg/L (0.0-4.9) H 06/19/24 07:37 NT-Pro-B Natriuret Pep < 36 pg/mL (0-125) 06/19/24 07:37 Total Protein 6.7 g/dL (6.6-8.7) 06/20/24 05:11 Albumin 4.0 g/dL (3.5-5.2) 06/20/24 05:11 Globulin 2.7 g/dL (1.3-4.6) 06/20/24 05:11 Procalcitonin 0.14 ng/mL (0-0.5) 06/19/24 09:23 TSH 0.50 uIU/mL (0.27-4.20) 06/19/24 07:37 Coronavirus (PCR) Negative (Negative) 06/19/24 07:14 Influenza A (PCR) Positive (Negative) 06/19/24 07:14 Influenza Type B (PCR) Negative (Negative) 06/19/24 07:14 RSV (PCR) Negative (Negative) 06/19/24 07:14 Vitals Last Vital Signs Temp 98.0 F 06/20/24 15:22 Pulse 94 06/20/24 16:08 Resp 17 06/20/24 15:22 BP 100/62 06/20/24 16:08 Pulse Ox 97 06/20/24 16:08 O2 Del Method Nasal Cannula 06/20/24 15:22 O2 Flow Rate 4 06/20/24 15:22 Discharge Plan Discharge Patient Disposition: Home Condition: Stable Prescriptions: Continued pantoprazole 40 mg tablet,delayed release (DR/EC) 40 mg PO DAILY PRN (Reason: acid reflux) Qty: 60 1RF aspirin 81 mg Tablet,Delayed Release (Dr/Ec) 81 mg PO DAILY losartan 50 mg tablet 50 mg PO DAILY isosorbide mononitrate 30 mg tablet extended release 24 hr 30 mg PO QAM omeprazole 20 mg capsule,delayed release(DR/EC) 20 mg PO BID metoprolol succinate 25 mg tablet extended release 24 hr 25 mg PO DAILY rosuvastatin 40 mg tablet 40 mg PO DAILY Trelegy Ellipta 100-62.5-25 mcg blister with device 1 inh INHALATION DAILY Allergy Relief (loratadine) 10 mg capsule 10 mg PO DAILY Qty: 30 0RF montelukast [Singulair] 10 mg tablet 10 mg PO DAILY Qty: 30 0RF metformin 500 mg tablet 500 mg PO BID Qty: 60 0RF Discontinued prednisone 10 mg tablet 10 mg PO DIRECTED Qty: 30 0RF Rx Instructions: see taper instructions Discharge Orders: Discharge Order (Routine); Ordered 06/20/24 Ordered By: Saundra Santana Referrals: Collins Franco [Primary Care Provider] - 06/23/24 1:30 pm Discharge Diet: Usual diet Discharge Activity: Increase activity as tolerated Patient Instructions: COPD, Cefuroxime (By mouth) (Ceftin), Prednisone (By mouth) (Prednisone Intensol, Prednicot, Deltasone, [place]), Oseltamivir (By mouth) (Tamiflu), Influenza (GEN), Community Acquired Pneumonia (GEN), Acute Respiratory Failure (GEN), COPD Stoplight, Opioid Safety Discharge Attestations Time Spent in Discharge Care*: greater than 30 min Quality Metrics Clinical Quality Measures [ No reported AMI, CVA or VTE this stay] Coding Level of Care Code Acute Code for [facility] Fwd Diagnoses Acute hypoxic respiratory failure J96.01 Community acquired pneumonia J18.9 Laterality: left Lung location: lower lobe of lung Acute exacerbation of chronic obstructive pulmonary disease J44.1 Hypoxia R09.02 Influenza J11.1 Sepsis with acute hypoxic respiratory failure without septic shock, due to unspecified organism A41.9; R65.20; J96.01 Sepsis type: sepsis due to unspecified organism Sepsis acute organ dysfunction status: with acute organ dysfunction Severe sepsis acute organ dysfunction type: acute respiratory failure Acute respiratory failure type: with hypoxia Severe sepsis shock status: without septic shock
== END 2024-06-20 16:10 | disposition home or self-care (01) | DRG 871 ==
LOC: ER 08:17 → ER IP 10:41 → MEDSURG 17:11
PROVIDERS: Admitting Provider Family Medicine; Emergency Provider Emergency Medicine; PCP Family Medicine; Visit Provider Hospitalist
DX: A41.9 Sepsis, unspecified organism (principal); J18.9 Pneumonia, unspecified organism; J96.01 Acute respiratory failure with hypoxia; J44.1 Chronic obstructive pulmonary disease with (acute) exacerbation; J44.0 Chronic obstructive pulmonary disease with (acute) lower respiratory infection; R65.20 Severe sepsis without septic shock; J10.1 Influenza due to other identified influenza virus with other respiratory manifestations; I10 Essential (primary) hypertension; E78.5 Hyperlipidemia, unspecified; E11.9 Type 2 diabetes mellitus without complications; Z79.82 Long term (current) use of aspirin; Z79.51 Long term (current) use of inhaled steroids; Z79.84 Long term (current) use of oral hypoglycemic drugs; R91.8 Other nonspecific abnormal finding of lung field; Z87.891 Personal history of nicotine dependence
CPT/HCPCS: 36415; 36416; 71045; 71275; 80053; 82962; 83036; 83605; 83735; 83880; 84100; 84145; 84443; 84484; 85025; 86140; 87040; 87070; 87205; 87637; 93005; 94640; 94664; 94760; 96365; 96366; 96372; 96375; 96376; 99285; J0456; J0692; J0696; J1650; J1815; J2470; J2919; J3490; J7030; J7050; J7512; J7626

== ENCOUNTER 2024-09-19 20:00 | Outpatient (CLI) | payer MEDICAID, SELFPAY | END 2024-09-19 20:01 | disposition home or self-care (01) | LOC: SLEEP 09-20 00:33 | PROVIDERS: PCP Family Medicine; Visit Provider Family Medicine | DX: G47.33 Obstructive sleep apnea (adult) (pediatric) (principal); G47.36 Sleep related hypoventilation in conditions classified elsewhere | CPT/HCPCS: 95810 ==

== ENCOUNTER 2024-12-13 20:00 | Outpatient (CLI) | payer MEDICAID, SELFPAY | END 2024-12-13 20:01 | disposition home or self-care (01) | LOC: SLEEP 12-14 00:49 | PROVIDERS: PCP Family Medicine; Visit Provider Internal Medicine Pulmonary Disease | DX: G47.33 Obstructive sleep apnea (adult) (pediatric) (principal) | CPT/HCPCS: 95811 ==

== ENCOUNTER 2025-04-17 10:04 | Emergency (ER) | payer MEDICAID, SELFPAY ==
[2025-04-17 10:07] VITALS: BP 135/93; PULSE 82; TEMP 36.6; O2SAT 95; BMI 34.9
--- NOTE | 2025-04-17 10:08 | XR_ITS ---
WS: [id number] XR chest 1V portable [id number] REASON FOR EXAM: prod cough FINDINGS: Chest is unchanged compared to previous examination of 06/19/2024. Mild tortuosity and ectasia of the thoracic aorta. Heart size is within normal limits. Flattening of the hemidiaphragms. Calcified granulomas disease in both hemithoraces. Chronic reticular interstitial lung opacities in both lower lung garber. Ill-defined areas of lucency with decreased lung markings in the upper lung garber. XR/XR chest 1V portable [id number] IMPRESSION: Obstructive lung disease with hyperexpansion. No acute chest abnormality.
--- NOTE | 2025-04-17 10:31 | W.ED.URI ---
HPI - URI/Sore Throat General: Chief Complaint: Upper Respiratory Infection Stated Complaint: coughing up junk, trouble breathing Time Seen by Provider: 04/17/25 10:08 Source: patient Mode of arrival: ambulatory Limitations: no limitations History of Present Illness: Patient is a 50-year-old male with past medical history of COPD who presents to the emergency department complaining of productive cough for the past few days. States he has a history of pneumonia this feels similar. He has been coughing up mucus that has been productive of blood and yellow phlegm. Notes that the mucus is mainly blood-streaked but he did have 1 episode of coughing up dark red blood. Does report being exposed to sick contacts. Chronically he is on 3 to 4 L of oxygen, he is on 4 L at this time at 96% SpO2. No chest pain, he does feel slightly short of breath. States that he normally has chest congestion with his pneumonia but is not having any chest congestion at this time. Otherwise vitals are stable. No nausea/vomiting/diarrhea. No fevers. He is endorsing some wheezing, states he normally does breathing treatments was unable to this morning. MD elicited complaint: cough Pertinent past history: pneumonia and COPD Onset (ago): day(s) Consistency: constant Severity: similar to previous episodes Description of mucous: yellow and bloody Able to tolerate fluids by mouth: Yes Associated symptoms: Deny abdominal pain, chills, chest pain, diarrhea, ear or mastoid pain, fever(s), headache(s), nausea or vomiting Related Data Home Medications ?Medication ?Instructions ?Recorded ?Confirmed aspirin 81 mg tablet,delayed 81 mg PO DAILY 07/26/23 04/04/25 release fluticasone fur. 100 mcg-umeclid 1 inh inhalation DAILY 05/02/24 04/04/25 62.5 mcg-vilant 25 mcg inhalat.powder (Trelegy Ellipta) isosorbide mononitrate 30 mg 30 mg PO QAM 05/02/24 04/04/25 tablet,extended release 24 hr losartan 50 mg tablet 50 mg PO DAILY 05/02/24 04/04/25 rosuvastatin 40 mg tablet 40 mg PO DAILY 05/02/24 04/04/25 carvedilol 6.25 mg tablet mg PO 04/04/25 04/04/25 naproxen 500 mg tablet mg PO 04/04/25 04/04/25 tamsulosin 0.4 mg capsule mg PO 04/04/25 04/04/25 Previous Rx's ?Medication ?Instructions ?Recorded pantoprazole 40 mg tablet,delayed 40 mg PO DAILY PRN acid reflux #60 07/02/23 release tabs metformin 500 mg tablet 500 mg PO BID #60 tabs 05/03/24 montelukast 10 mg tablet 10 mg PO DAILY #30 tabs 05/03/24 (Singulair) ondansetron HCl 8 mg tablet 8 mg PO Q8H PRN nausea and/or 04/04/25 vomiting #30 tabs doxycycline hyclate 100 mg tablet 100 mg PO BID 10 days #20 tabs 04/17/25 guaifenesin 1,200 mg tablet, 1,200 mg PO BID PRN congestion #20 04/17/25 extended release 12 hr (Mucinex) tabs prednisone 10 mg tablets in a dose 10 mg PO DIRECTED #21 ea 04/17/25 pack Allergies Allergy/AdvReac Type Severity Reaction Status Date / Time Penicillins Allergy Mild ALGY-Fever Verified 04/17/25 10:14 Review of Systems General: Reports: 10 or more systems reviewed and unremarkable except in HPI and below Const: Denies: fever(s), chills or fatigue Eyes: Denies: change in vision ENMT: Denies: throat pain, ear or mastoid pain or nasal discharge Card: Denies: chest pain, palpitations, swelling of feet/ankles or lightheadedness Resp: Reports: dyspnea, productive cough and hemoptysis; Denies: wheezing GI: Denies: abdominal pain, nausea, vomiting, diarrhea or constipation : Denies: flank pain, difficulty urinating, dysuria or urinary frequency Musc: Denies: neck pain, back pain or joint pain Skin/Breast: Denies: rash Neuro: Denies: headache(s), numbness in extremities or weakness in extremities PFSH ED PFSH: Medical History Chest wall pain, chronic Hilar lymphadenopathy Pulmonary nodule less than 1 cm in diameter with moderate to high risk for malignant neoplasm Former heavy cigarette smoker (20-39 per day) Quit smoking 04/22/2023 Chronic GERD COPD (chronic obstructive pulmonary disease) Surgical History No pertinent past surgical history Family History Father Heart disease Mother Heart disease Diabetes Gout Polio Other Cancer Social History Smoking and tobacco/nicotine status: former use of tobacco/nicotine Alcohol intake: former Substance/Drug Use: never Adopted: No service: No Current occupational exposures/hazards: Yes 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 Current gender identity: Male Physical Exam Const: COMMON NORMALS: no acute distress, patient oriented x3 and no limitations GENERAL APPEARANCE: cooperative, comfortable and well developed ORIENTATION/CONSCIOUSNESS: Yes awake, Yes oriented to person, Yes oriented to place and Yes oriented to time OTHER: nontoxic HENMT: COMMON NORMALS: normocephalic, atraumatic and hearing grossly normal bilaterally HEAD & SCALP: normocephalic and atraumatic Neck/C-Spine: COMMON NORMALS: full ROM, supple and no JVD Resp: COMMON NORMALS: normal respiratory effort, No retractions, No use of accessory muscles and clear to auscultation bilaterally AUSCULTATION: clear to auscultation bilaterally OTHER: No significant respiratory distress. No tachypnea. Global decreased lung sounds without any wheezing or stridor. Cardio: COMMON NORMALS: no JVD, regular rate, regular rhythm, No clicks present (Cardio), No murmurs present (Cardio) and No rub (Cardio) RATE: regular rate RHYTHM: regular rhythm Extremity: COMMON NORMALS: normal to inspection, full ROM and capillary refill normal Neuro: COMMON NORMALS: patient oriented x3, moves all extremities, no focal motor deficits and no sensory deficits noted SENSORIUM/ORIENTATION: Yes oriented to person, Yes oriented to place and Yes oriented to time Skin: COMMON NORMALS: no rashes or lesions noted GENERAL SKIN EXAM: no rashes or lesions noted Course Vital Signs: Vital signs: Vital Signs Temperature 97.9 F 04/17/25 10:07 Pulse Rate 81 04/17/25 11:37 Respiratory Rate 18 04/17/25 10:41 Blood Pressure 110/67 04/17/25 11:37 Pulse Oximetry 92 04/17/25 11:37 Oxygen Delivery Me thod Nasal Cannula 04/17/25 11:00 Oxygen Flow Rate 4 04/17/25 11:00 MDM - URI/Sore Throat Medical Decision Making Patient presented with shortness of breath over the past few days, history of COPD and recurrent pneumonia. He had noted a productive cough of blood and yellow phlegm, stated that his symptoms are consistent with history of diagnosed pneumonia. Global decreased lung sounds throughout but there was no audible wheezing, stridor, or any signs of respiratory distress on exam. CBC and CMP unremarkable, and viral swab negative. Chest x-ray showing obstructive lung disease but there is no focal consolidation noted. With his productive cough he will be treated for COPD exacerbation, being that he has been on his normal 3 to 4 L of oxygen here and maintaining oxygenation status he is stable for outpatient treatment. However, despite being on antibiotics if he continues to have any worsening he is encouraged to come back to the emergency department for reevaluation. He agrees to this plan at this time. Did receive breathing treatment here which he states did help. Prednisone Dosepak initiated as well. Lab Data 04/17/25 10:39 04/17/25 10:39 Radiology Impressions Chest X-Ray 04/17/25 10:08 IMPRESSION: Obstructive lung disease with hyperexpansion. No acute chest abnormality. Laboratory Results WBC 9.38 10^3/uL (3.29-11.43) 04/17/25 10:39 RBC 5.48 10^6/uL (3.85-5.65) 04/17/25 10:39 Hgb 14.00 g/dL (11.27-16.99) 04/17/25 10:39 Hct 42.5 % (37-53) 04/17/25 10:39 MCV 77.6 fl (82-101) L 04/17/25 10:39 MCH 25.5 pg (27-33) L 04/17/25 10:39 MCHC 32.9 g/dL (30-55) 04/17/25 10:39 RDW 15.1 % (12.1-15.1) 04/17/25 10:39 Plt Count 287 10^3/cmm (157-399) 04/17/25 10:39 MPV 8.9 fL (7.4-10.4) 04/17/25 10:39 Neut % (Auto) 63.1 % 04/17/25 10:39 Lymph % (Auto) 22.6 % 04/17/25 10:39 [place] % (Auto) 10.3 % 04/17/25 10:39 Eos % (Auto) 2.6 % 04/17/25 10:39 Baso % (Auto) 0.7 % 04/17/25 10:39 Neut # (Auto) 5.91 10^3/uL (1.8-7.7) 04/17/25 10:39 Lymph # (Auto) 2.1 10^3/uL (0.8-4.8) 04/17/25 10:39 [place] # (Auto) 1.0 10^3/uL (0.2-0.9) H 04/17/25 10:39 Eos # (Auto) 0.2 10^3/uL (0.0-0.8) 04/17/25 10:39 Baso # (Auto) 0.1 10^3/uL (0.0-0.1) 04/17/25 10:39 Nucleated RBC % (auto) 0 % 04/17/25 10:39 Nucleated RBCs # 0.0 /100WBC 04/17/25 10:39 Sodium 135 mmol/L (136-145) L 04/17/25 10:39 Potassium 4.3 mmol/L (3.5-5.1) 04/17/25 10:39 Chloride 101 mmol/L (98-107) 04/17/25 10:39 Carbon Dioxide 26 mmol/L (22-29) 04/17/25 10:39 Anion Gap 12.3 (5-19) 04/17/25 10:39 BUN 14 mg/dL (6-20) 04/17/25 10:39 Creatinine 0.7 mg/dL (0.7-1.2) 04/17/25 10:39 GFR Calculation 119.4 mL/min (90-130) 04/17/25 10:39 Glucose 141 mg/dL (65-115) H 04/17/25 10:39 Calculated Osmolality 283 mOsm/kg (285-295) L 04/17/25 10:39 Calcium 8.9 mg/dL (8.5-10.5) 04/17/25 10:39 Total Bilirubin 0.3 mg/dL (0.15-1.2) 04/17/25 10:39 AST 20 U/L (0-40) 04/17/25 10:39 ALT 26 U/L (0-41) 04/17/25 10:39 Alkaline Phosphatase 103 U/L (40-130) 04/17/25 10:39 Total Protein 6.9 g/dL (6.6-8.7) 04/17/25 10:39 Albumin 4.3 g/dL (3.5-5.2) 04/17/25 10:39 Globulin 2.6 g/dL (1.3-4.6) 04/17/25 10:39 Influenza A (PCR) Negative (Negative) 04/17/25 10:35 Influenza Type B (PCR) Negative (Negative) 04/17/25 10:35 RSV (PCR) Negative (Negative) 04/17/25 10:35 SARS-CoV-2 (PCR) Negative (Negative) 04/17/25 10:35 All radiology interpretation(s) finalized by discharge Discharge Plan Discharge Patient Disposition: Home Clinical Impression: COPD with acute exacerbation Condition: Stable Prescriptions: New prednisone 10 mg tablets,dose pack 10 mg PO DIRECTED Qty: 21 0RF Rx Instructions: see taper instructions 6 tablets on day 1, 5 tablets on day 2, 4 tablets on day 3, 3 tablets on day 4, 2 tablets on day 5, and 1 tablet a day 6. P.o. doxycycline hyclate 100 mg tablet 100 mg PO BID 10 Days Qty: 20 0RF guaifenesin [Mucinex] 1,200 mg tablet extended release 12hr 1,200 mg PO BID PRN (Reason: congestion) Qty: 20 0RF No Action pantoprazole 40 mg tablet,delayed release (DR/EC) 40 mg PO DAILY PRN (Reason: acid reflux) Qty: 60 1RF carvedilol 6.25 mg tablet PO tamsulosin 0.4 mg capsule PO naproxen 500 mg tablet PO ondansetron HCl 8 mg tablet 8 mg PO Q8H PRN (Reason: nausea and/or vomiting) Qty: 30 1RF aspirin 81 mg Tablet,Delayed Release (Dr/Ec) 81 mg PO DAILY losartan 50 mg tablet 50 mg PO DAILY isosorbide mononitrate 30 mg tablet extended release 24 hr 30 mg PO QAM rosuvastatin 40 mg tablet 40 mg PO DAILY Karine Ellipta 100-62.5-25 mcg blister with device 1 inh INHALATION DAILY montelukast [Singulair] 10 mg tablet 10 mg PO DAILY Qty: 30 0RF metformin 500 mg tablet 500 mg PO BID Qty: 60 0RF Discharge Orders: Discharge ED (Routine); Ordered 04/17/25 Ordered By: Nima Barrett Referrals: Collins Franco [Primary Care Provider, Family Practice] Patient Instructions: Patient Portal & Francois Instructions Activity Restrictions/Additional Instructions: COPD Discharge Instructions You were hospitalized for a flare-up (exacerbation) of your chronic obstructive pulmonary disease (COPD). This means your breathing symptoms got worse, likely due to an infection or inflammation in your lungs. You are now stable enough to go home and continue your recovery there. Your Medications You will be taking two new medications to help you recover: - Doxycycline: Take one pill twice daily for 10 days. This antibiotic treats the bacterial infection in your lungs. Take it with a full glass of water and avoid lying down for at least 30 minutes after taking it to prevent irritation of your esophagus. Finish all the pills even if you start feeling better. - Prednisone Dosepak: Follow the instructions on the package exactly. This steroid medication reduces inflammation in your airways and helps you breathe better. The dose will decrease over several days. Common side effects include increased appetite, trouble sleeping, and mood changes. Take it with food to reduce stomach upset. - Continue your home oxygen at 3 to 4 liters as prescribed. Do not adjust the oxygen flow rate without talking to your doctor first. - Continue all your regular COPD medications including your inhalers. Do not stop any medications unless instructed by your doctor. Using Your Rescue Inhaler If you become short of breath, use your short-acting bronchodilator (rescue inhaler) as prescribed. This medication opens your airways quickly. If you need to use your rescue inhaler more often than usual, contact your doctor. Warning Signs - When to Seek Emergency Care Go to the emergency room or call 911 if you experience: - Shortness of breath that does not improve with your rescue inhaler - Breathing that is very fast or difficult, even at rest - Confusion or difficulty staying awake - Chest pain - Fever (temperature above 100.4?F) - Increased swelling in your legs or ankles - Coughing up blood - Blue or garcia color to your lips or fingernails What to Expect During Recovery - Recovery takes time. It may take 4 to 6 weeks to feel back to your normal baseline. - You may still have some cough, shortness of breath, and fatigue during this time. - Gradually increase your activity as tolerated, but rest when you need to. Follow-Up Care - Schedule an appointment with your primary care doctor within 1 to 2 weeks of leaving the hospital. - Bring all your medications to this appointment. - Your doctor will check how you are recovering and may adjust your medications. Preventing Future Flare-Ups - Take all your COPD medications exactly as prescribed, even when you feel well. - Avoid cigarette smoke and other lung irritants. - Wash your hands frequently to prevent infections. - Stay up to date with your flu and pneumonia vaccines. - Contact your doctor early if you notice your symptoms getting worse (increased shortness of breath, more coughing, change in mucus color to yellow or green). Questions or Concerns If you have questions about your medications or recovery, contact your doctor's office. If you cannot reach your doctor and have concerning symptoms, go to the emergency room. Print Language: [place] Coding Level of Care Code ED Telephone Service Representative for Cayden Olivares
[2025-04-17 10:41] VITALS: PULSE 90; RESP 18; O2SAT 96
[2025-04-17 10:47] VITALS: PULSE 89
[2025-04-17 10:56] LABS: Hematocrit 42.5 % (37-53); Hemoglobin 14.00 g/dL (11.27-16.99); Mean Corpuscular HGB Conc 32.9 g/dL (30-55); Mean Corpuscular Hemoglobin 25.5 pg (27-33); Mean Corpuscular Volume 77.6 fl (82-101); Nucleated Red Blood Cells % 0 %; Platelet Count 287 10^3/cmm (157-399); Red Blood Count 5.48 10^6/uL (3.85-5.65); White Blood Count 9.38 10^3/uL (3.29-11.43)
[2025-04-17 11:00] VITALS: BP 119/68; PULSE 83; O2SAT 92
[2025-04-17 11:15] LABS: Alanine Aminotransferase 26 U/L (0-41); Albumin Level 4.3 g/dL (3.5-5.2); Alkaline Phosphatase 103 U/L (40-130); Anion Gap 12.3 (5-19); Aspartate Amino Transferase 20 U/L (0-40); Blood Urea Nitrogen 14 mg/dL (6-20); Calcium 8.9 mg/dL (8.5-10.5); Carbon Dioxide 26 mmol/L (22-29); Chloride 101 mmol/L (98-107); Globulin 2.6 g/dL (1.3-4.6); Glucose 141 mg/dL (65-115); Osmolality Calculated 283 mOsm/kg (285-295); Potassium 4.3 mmol/L (3.5-5.1); Sodium 135 mmol/L (136-145); Total Protein 6.9 g/dL (6.6-8.7)
[2025-04-17 11:17] LABS: Respiratory Syncytial Virus Ce NEGATIVE (Negative); SARS-CoV-2 PCR NEGATIVE (Negative)
[2025-04-17 11:37] VITALS: BP 110/67; PULSE 81; O2SAT 92
== END 2025-04-17 11:38 | disposition home or self-care (01) ==
PROVIDERS: Emergency Provider Physician Assistant; PCP Family Medicine
DX: J44.1 Chronic obstructive pulmonary disease with (acute) exacerbation (principal); Z79.82 Long term (current) use of aspirin; Z11.52 Encounter for screening for COVID-19; Z87.891 Personal history of nicotine dependence
CPT/HCPCS: 71045; 80053; 85025; 87070; 87637; 94640; 99284; J9999